=== PATIENT | female | born 1985 | race Caucasian/White ===

== ENCOUNTER → 2016-05-09 | Outpatient (REF) | payer BC | LOC: M SMT 13:11 | PROVIDERS: ATTEND Specialist | DX: M62.89 Other specified disorders of muscle (principal) ==

== ENCOUNTER → 2016-05-13 | Outpatient (REF) | payer BC | LOC: M SMT 11:05 | PROVIDERS: ATTEND Specialist | DX: R32 Unspecified urinary incontinence (principal) ==

== ENCOUNTER → 2016-05-29 | Outpatient (REF) | payer BC | LOC: M LAB REF 14:49 | PROVIDERS: ATTEND Family Medicine | DX: K52.9 Noninfective gastroenteritis and colitis, unspecified (principal) ==

== ENCOUNTER 2016-06-07 16:31 | Emergency (ER) | payer BC ==
[2016-06-07] MEDS ORDERED: diphenhydrAMINE INJ 50MG/ML VIAL (J1200) As Ordered ONE (17:24)
[2016-06-07] MEDS ORDERED: ONDANSETRON 4MG/2ML VIAL (J2405) As Ordered ONE (17:25)
[2016-06-07] MEDS ORDERED: KETOROLAC 30 MG/ML VIAL (J1885) As Ordered ONE (17:25)
[2016-06-07 17:41] LABS: BASO % 0.3 % (0.0-1.0); EOS # 0.1 K/mm3 (0.0-0.50); EOS % 1.1 % (0.0-3.0); LARGE UNSTAINED CELL # 0.1 K/mm3 (0.0-0.4); LARGE UNSTAINED CELL % 1.5 % (0.0-4.0); LYMPH # 2.7 K/mm3 (1.5-6.5); LYMPH % 27.4 % (24.0-44.0); MEAN CORPUSCULAR VOLUME 84.8 fl (80.0-96.0); MONO # 0.7 K/mm3 (0.0-0.8); NEUTROPHILS % 62.7 % (36.0-66.0); PLATELET COUNT, AUTOMATED 300 k/mm3 (150-450); RED CELL DISTRIBUTION WIDTH 13.2 % (11.5-14.5); WHITE BLOOD COUNT 9.5 K/mm3 (4.0-10.0)
--- NOTE | 2016-06-07 17:51 | REP ---
Clinical: Epigastric and abdominal pain. Technique: Upright view of the chest with supine and upright views of the abdomen and pelvis. Findings: Frontal upright view of the chest demonstrates no acute cardiopulmonary process or free air below the diaphragm to suspect pneumoperitoneum. Supine and upright views of the abdomen and pelvis demonstrate nonspecific bowel gas pattern without obstruction or perforation. No organomegaly. No abnormal calcifications. Skeletal structures normal for age. Impression: Nonspecific bowel gas pattern. Signed by Davie Gutiérrez MD 06/07/2016 05:42 P
[2016-06-07 17:58] LABS: ALBUMIN 3.8 GM/DL (3.2-5.2); ALBUMIN/GLOBULIN RATIO 1.12 (1.00-1.93); ALKALINE PHOSPHATASE 91 U/L (45-117); ALT/SGPT 17 U/L (12-78); AMYLASE 64 U/L (25-115); ANION GAP 8 MEQ/L (8-16); AST/SGOT 13 U/L (15-37); BILIRUBIN,DIRECT < 0.1 MG/DL (0.0-0.2); BILIRUBIN,TOTAL 0.2 MG/DL (0.2-1.0); BLOOD UREA NITROGEN 12 MG/DL (7-18); CALCIUM LEVEL 9.4 MG/DL (8.5-10.1); CARBON DIOXIDE LEVEL 29 MEQ/L (21-32); CHLORIDE LEVEL 105 MEQ/L (98-107); CREATININE FOR GFR 0.78 MG/DL (0.55-1.02); GLOMERULAR FILTRATION RATE > 60.0 (>60); GLUCOSE, FASTING 102 MG/DL (70-105); SODIUM LEVEL 142 MEQ/L (136-145); TOTAL PROTEIN 7.2 GM/DL (6.4-8.2)
--- NOTE | 2016-06-07 18:34 | REP ---
Clinical: Renal colic. Findings: Lung bases are clear. Visualized heart and pericardium normal. Liver, spleen, pancreas, gallbladder, bilateral adrenal glands and kidneys are normal for noncontrast examination. There is no perinephric stranding, hydroureteronephrosis, intrarenal or obstructing ureteral calculi. The enteric system is without obstruction or acute inflammatory process and a normal terminal ileum and appendix are identified in the right lower quadrant. Mild fecal stasis is suggested which may be related to patient's symptoms. Pelvis demonstrates collapsed bladder and normal age-appropriate uterus/adnexa. No ascites. No free air. No adenopathy. Musculoskeletal structures are intact. Impression: 1. Mild fecal stasis possibly related to patient's symptoms. 2. Normal urinary tract system. 3. Normal right lower quadrant including terminal ileum and appendix. 4. No free fluid. Signed by Davie Gutiérrez MD 06/07/2016 06:24 P
--- NOTE | 2016-06-07 19:40 | EDDOCDS ---
Physician Documentation [facility] Name: Judi Marx Age: 30 yrs Sex: Female : 1985 Arrival Date: 06/07/2016 Time: 16:31 Bed I3 / M3 Private MD: Teodoro Hernandez Disposition: 06/07/16 19:21 Discharged to Home/Self Care. Impression: Abdominal and pelvic pain, Irritable bowel syndrome. - Condition is Stable. - Discharge Instructions: Abdominal Pain, Adult. - Prescriptions for Zofran 4 mg Oral Tablet - take 1 tablet by ORAL route 4 times per day As needed; 10 tablet. ketorolac 10 mg Oral Tablet - take 1 tablet by ORAL route 3 times per day As needed MDD- 30mg. Up to 5 days total use.; 15 tablet. - Medication Reconciliation, Local Pharmacy Hours form. - Follow up: Teodoro Hernandez; When: 2 - 3 days; Reason: Recheck today's complaints, Continuance of care. Follow up: Cali Ervin; When: Call to arrange an appointment; Reason: Further diagnostic work-up, Continuance of care. - Problem is an acute exacerbation. - Symptoms are unchanged. Historical: - Allergies: Dilaudid; Morphine; Vicodin; - Home Meds: 1. Iron CR Oral 2 tab daily 2. Tylenol Oral 1000 mg (Last dose: 06/07/2016 09:00) 3. Probiotic oral oral as needed - PMHx: Asthma; - PSHx: right arm fracture repair; - Social history: Smoking status: Patient states was never smoker of tobacco. No barriers to communication noted, The patient speaks fluent Lao, Speaks appropriately for age. - Family history: Not pertinent. - : The pt / caregiver states he / she is not on anticoagulants. Home medication list is obtained from the patient. - Exposure Risk Screening:: None identified. CLEAT THROWER: 06/07 16:47 LMP 06/07/2016 ld5 Vital Signs: 16:33 BP 117 / 78; Pulse 98; Resp 18 S; Temp 97.0(O); Pulse Ox 99% on R/A; Weight 81.65 kg / gr2 180.01 lbs (R); Height 5 ft. 6 in. (167.64 cm) (R); Pain 7/10; 19:29 BP 103 / 53; Pulse 62; Resp 18; Temp 97.2(O); Pulse Ox 100% on R/A; Pain 3/10; kb5 16:33 Body Mass Index 29.05 (81.65 kg, 167.64 cm) gr2 16:33 HAJUQFHQH IO PQPKQAK gr2 MDM: 16:59 NS 0.9% 1000 ml IV at bolus once ordered. ke 16:59 Ondansetron 4 mg IVP once ordered. ke 16:59 ketorolac 30 mg IVP once ordered. ke 16:59 IV Saline Lock ordered. ke 16:59 Undress patient appropriately for examination ordered. ke 16:59 diphenhydrAMINE 50 mg IVP once ordered. ke 17:00 Amylase Ordered. EDMS 17:01 Basic Metabolic Profile Ordered. EDMS 17:01 CBC with Diff Ordered. EDMS 17:01 Lipase Ordered. EDMS 17:01 Liver Profile Ordered. EDMS 17:01 UA Ordered. EDMS 17:01 Urine Culture Ordered. EDMS 17:01 Abdomen, Flat\E\Upright,PA Chest Ordered. EDMS 17:01 NOTHING BY MOUTH+DIET ordered. EDMS 18:03 CBC with Diff Reviewed. ke 18:03 Liver Profile Reviewed. ke 18:03 UA Reviewed. ke 18:03 Amylase Reviewed. ke 18:03 Basic Metabolic Profile Reviewed. ke 18:03 Lipase Reviewed. ke 18:04 CT ABD & PELVIS: No Contrast Ordered. EDMS 18:28 Financial registration complete. gjb 19:04 Abdomen, Flat\E\Upright,PA Chest Reviewed. ke 19:18 [facility] [place] Payment Agreement was scanned into [employer] and attached to record. gjb 19:19 CT ABD & PELVIS: No Contrast Reviewed. ke Administered Medications: 17:30 Drug: diphenhydrAMINE 50 mg [diphenhydramine 50 mg/mL injection solution (1 mL)] Route: jjr IVP; Site: left antecubital; 17:32 Drug: Ondansetron 4 mg [ondansetron HCl 2 mg/mL intravenous solution (2 mL)] Route: jjr IVP; Site: left antecubital; 19:35 Follow up: Response: Nausea is decreased ld5 17:33 Drug: ketorolac 30 mg [ketorolac 30 mg/mL (1 mL) injection solution (1 mL)] Route: IVP; jjr Site: left antecubital; 19:35 Follow up: Response: Pain is decreased ld5 19:03 Drug: NS 0.9% 1000 ml [sodium chloride 0.9 % intravenous solution] Route: IV; Rate: srm bolus; Site: left antecubital; 19:35 Follow up: IV Status: Completed infusion; IV Intake: 1000ml ld5 Signatures: Dispatcher [employer] EDOrville Rausch, Amy Celaya RN RN ld5 Kristen Douglas RN RN susan Cesia Kong Staci RN [facility] Sharifa Dumont RN jjr The chart was reviewed and I authenticate all verbal orders and agree with the evaluation and treatment provided.Attachments: 19:18 REPLACED BY [facility] Payment Agreement rachel MTDD
--- NOTE | 2016-06-07 19:40 | EDDOCDS ---
Nurse's Notes [facility] Name: Judi Marx Age: 30 yrs Sex: Female : 1985 Arrival Date: 06/07/2016 Time: 16:31 Bed I3 / M3 Private MD: Teodoro Hernandez Diagnosis: Abdominal and pelvic pain;Irritable bowel syndrome Presentation: 06/07 16:43 Presenting complaint: Patient states: Started with severe abdominal pain and ld5 nausea/vomiting around 1400. Tenderness to abdomen. Pt has had abdominal problems since delivery complications almost a year ago. Adult Sepsis Screening: The patient does not have new or worsening altered mentation. Patient's respiratory rate is less than 22. Systolic blood pressure is greater than 100. Patient has a qSOFA score of 0- Negative Sepsis Screen. Suicide/Homicide risk assessment- the patient denies having any suicidal and/or homicidal ideations and does not present with any other emotional, behavioral or mental health complaints. Status: Patient is not a customer service consultant or dependent. Transition of care: patient was not received from another setting of care. 16:43 Acuity: MARITZA Level 3 ld5 16:43 Method Of Arrival: Walkin/Carried/Asstd ld5 Triage Assessment: 16:47 General: Appears uncomfortable, Behavior is cooperative. Pain: Location: posterior ld5 aspect of left lateral abdomen, anterior aspect of left lateral abdomen, right lower quadrant and left lower quadrant Pain currently is 4 out of 10 on a pain scale. At worst was 8 out of 10 on a pain scale. HIV screening NA for this visit Offered previously. Neurological: Level of Consciousness is awake, alert. GI: Reports diarrhea, nausea, vomiting. BURLESQUE DANCER: 16:47 LMP 06/07/2016 ld5 Historical: - Allergies: Dilaudid; Morphine; Vicodin; - Home Meds: 1. Iron CR Oral 2 tab daily 2. Tylenol Oral 1000 mg (Last dose: 06/07/2016 09:00) 3. Probiotic oral oral as needed - PMHx: Asthma; - PSHx: right arm fracture repair; - Social history: Smoking status: Patient states was never smoker of tobacco. No barriers to communication noted, The patient speaks fluent Swedish, Speaks appropriately for age. - Family history: Not pertinent. - : The pt / caregiver states he / she is not on anticoagulants. Home medication list is obtained from the patient. - Exposure Risk Screening:: None identified. Screenin:33 Screening information is obtained from the patient. Fall risk: No risks identified. ld5 Assistance ADL's: requires no assistance with activities of daily living. Abuse/DV Screen: The patient / caregiver reports he/she is: not in a situation that causes fear, pain or injury. Nutritional screening: No deficits noted. Advance Directives: There is no active DNR order. home support is adequate. Assessment: 17:50 General: Appears uncomfortable, Behavior is appropriate for age, cooperative, pleasant, cjh placed in M3 after return from XR, first contact with patient. Pain: Location: abdomen Pain currently is 7 out of 10 on a pain scale. Neurological: Level of Consciousness is awake, alert, Oriented to person, place, time. Respiratory: Airway is patent Respiratory effort is even, unlabored, Respiratory pattern is regular, symmetrical, Breath sounds are clear bilaterally. GI: Abdomen is non- distended Bowel sounds present X 4 quads. Abd is soft and non tender X 4 quads. 18:30 General: ambulates to and from [place], refuses offer of wheelchair, tolerates well. [facility] 19:34 General: Appears in no apparent distress, Behavior is cooperative. Pain: Pain currently ld5 is 3 out of 10 on a pain scale. Neurological: Level of Consciousness is awake, obeys commands. Respiratory: Airway is patent Respiratory effort is even, unlabored. GI: Denies nausea. Derm: Skin is intact, Skin is dry. Vital Signs: 16:33 BP 117 / 78; Pulse 98; Resp 18 S; Temp 97.0(O); Pulse Ox 99% on R/A; Weight 81.65 kg gr2 (R); Height 5 ft. 6 in. (167.64 cm) (R); Pain 7/10; 19:29 BP 103 / 53; Pulse 62; Resp 18; Temp 97.2(O); Pulse Ox 100% on R/A; Pain 3/10; kb5 16:33 Body Mass Index 29.05 (81.65 kg, 167.64 cm) gr2 16:33 HAJUQFHQH IO PQPKQAK gr2 Vitals: 16:33 Log In Time: June 07, 2016 at 16:33. gr2 ED Course: 16:32 Patient visited by Jr Dumont. gr2 16:32 Teodoro Hernandez is Private Physician. gr2 16:32 Patient moved to Waiting gr2 16:35 Patient visited by Jr Dumont. gr2 16:36 Patient moved to Pre RCE gr2 16:46 Triage Initiated ld5 16:48 Patient visited by Amy Hanson,PATRICIA. ld5 16:51 Patient moved to Triage 3 ld5 16:52 Orville Chakraborty FNP is [facility]. ke 16:52 Patient visited by Orville Chakraborty FNP. ke 16:52 Patient visited by Orville Chakraborty FNP. ke 17:21 Urine Culture Sent. jjr 17:21 UA Sent. jjr 17:21 Amylase Sent. jjr 17:21 Basic Metabolic Profile Sent. jjr 17:21 CBC with Diff Sent. jjr 17:21 Lipase Sent. jjr 17:21 Liver Profile Sent. jjr 17:27 Patient visited by Orville Chakraborty FNP. ke 17:32 Patient moved to I3 / M3 jjr 17:57 Patient visited by Orville Chakraborty FNP. ke 18:10 Abdomen, Flat\E\Upright,PA Chest Returned. EDMS 18:29 Patient visited by Orville Chakraborty FNP. ke 19:04 Patient visited by Orville Chakraborty FNP. ke 19:08 CT ABD & PELVIS: No Contrast Returned. EDMS 19:18 [facility] Agreement was scanned into [employer] and attached to record. gjb 19:21 Teodoro Hernandez is Referral Physician. ke 19:21 Cali Ervin is Referral Physician. ke 19:30 Patient visited by Robbie Funez PCA. kb5 19:32 Inserted saline lock: 20 gauge in left antecubital area by Adrian Dumont RN. ld5 19:33 The patient / caregiver is instructed regarding the plan of care and ED course. Patient ld5 has correct armband on for positive identification. 19:33 Discontinued lock intact, bleeding controlled, pressure dressing applied, No ld5 redness/swelling at site. No procedures done that require assistance. 19:35 Patient visited by Amy Hanson,PATRICIA. ld5 Administered Medications: 17:30 Drug: diphenhydrAMINE 50 mg [diphenhydramine 50 mg/mL injection solution (1 mL)] Route: jjr IVP; Site: left antecubital; 17:32 Drug: Ondansetron 4 mg [ondansetron HCl 2 mg/mL intravenous solution (2 mL)] Route: jjr IVP; Site: left antecubital; 19:35 Follow up: Response: Nausea is decreased ld5 17:33 Drug: ketorolac 30 mg [ketorolac 30 mg/mL (1 mL) injection solution (1 mL)] Route: IVP; jjr Site: left antecubital; 19:35 Follow up: Response: Pain is decreased ld5 19:03 Drug: NS 0.9% 1000 ml [sodium chloride 0.9 % intravenous solution] Route: IV; Rate: srm bolus; Site: left antecubital; 19:35 Follow up: IV Status: Completed infusion; IV Intake: 1000ml ld5 Intake: 19:35 IV: 1000.00ml; Total: 1000.00ml. ld5 Order Results: Lab Order: Amylase; SPEC'M 06/07/16 17:20 Test: AMYLASE; Value: 64; Range: 25-115; Units: U/L; Status: F Lab Order: Basic Metabolic Profile; SPEC'M 06/07/16 17:20 Test: GLUCOSE, FASTING; Value: 102; Range: 70-105; Units: MG/DL; Status: F Test: BLOOD UREA NITROGEN; Value: 12; Range: 7-18; Units: MG/DL; Status: F Test: CREATININE FOR GFR; Value: 0.78; Range: 0.55-1.02; Units: MG/DL; Status: F Test: GLOMERULAR FILTRATION RATE; Value: > 60.0; Range: >60; Status: F Test: SODIUM LEVEL; Value: 142; Range: 136-145; Units: MEQ/L; Status: F Test: POTASSIUM SERUM; Value: 4.0; Range: 3.5-5.1; Units: MEQ/L; Status: F Test: CHLORIDE LEVEL; Value: 105; Range: 98-107; Units: MEQ/L; Status: F Test: CARBON DIOXIDE LEVEL; Value: 29; Range: 21-32; Units: MEQ/L; Status: F Test: ANION GAP; Value: 8; Range: 8-16; Units: MEQ/L; Status: F Test: CALCIUM LEVEL; Value: 9.4; Range: 8.5-10.1; Units: MG/DL; Status: F Test Note: ; Units are mL/min/1.73 m2 Chronic Kidney Disease Staging per NKF: Stage I & II GFR >=60 Normal to Mildly Decreased Stage III GFR 30-59 Moderately Decreased Stage IV GFR 15-29 Severely Decreased Stage V GFR <15 Very Little GFR Left ESRD GFR <15 on BATT MACHINE OPERATOR Lab Order: CBC with Diff; SPEC'M 06/07/16 17:19 Test: WHITE BLOOD COUNT; Value: 9.5; Range: 4.0-10.0; Units: K/mm3; Status: F Test: RED BLOOD COUNT; Value: 4.79; Range: 4.00-5.40; Units: M/mm3; Status: F Test: HEMOGLOBIN; Value: 13.4; Range: 12.0-16.0; Units: g/dl; Status: F Test: HEMATOCRIT; Value: 40.7; Range: 36.0-47.0; Units: %; Status: F Test: MEAN CORPUSCULAR VOLUME; Value: 84.8; Range: 80.0-96.0; Units: fl; Status: F Test: MEAN CORPUSCULAR HEMOGLOBIN; Value: 28.0; Range: 27.0-33.0; Units: pg; Status: F Test: MEAN CORPUSCULAR HGB CONC; Value: 33.0; Range: 32.0-36.5; Units: g/dl; Status: F Test: RED CELL DISTRIBUTION WIDTH; Value: 13.2; Range: 11.5-14.5; Units: %; Status: F Test: PLATELET COUNT, AUTOMATED; Value: 300; Range: 150-450; Units: k/mm3; Status: F Test: NEUTROPHILS %; Value: 62.7; Range: 36.0-66.0; Units: %; Status: F Test: LYMPH %; Value: 27.4; Range: 24.0-44.0; Units: %; Status: F Test: MONO %; Value: 7.0; Range: 0.0-5.0; Abnormal: Above high normal; Units: %; Status: F Test: EOS %; Value: 1.1; Range: 0.0-3.0; Units: %; Status: F Test: BASO %; Value: 0.3; Range: 0.0-1.0; Units: %; Status: F Test: LARGE UNSTAINED CELL %; Value: 1.5; Range: 0.0-4.0; Units: %; Status: F Test: NEUTROPHILS #; Value: 6.0; Range: 1.8-7.7; Units: K/mm3; Status: F Test: LYMPH #; Value: 2.7; Range: 1.5-6.5; Units: K/mm3; Status: F Test: MONO #; Value: 0.7; Range: 0.0-0.8; Units: K/mm3; Status: F Test: EOS #; Value: 0.1; Range: 0.0-0.50; Units: K/mm3; Status: F Test: BASO #; Value: 0.0; Range: 0.0-0.2; Units: K/mm3; Status: F Test: LARGE UNSTAINED CELL #; Value: 0.1; Range: 0.0-0.4; Units: K/mm3; Status: F Lab Order: Lipase; SPEC'M 06/07/16 17:20 Test: LIPASE; Value: 366; Range: 73-393; Units: U/L; Status: F Lab Order: Liver Profile; SPEC'M 06/07/16 17:20 Test: AST/SGOT; Value: 13; Range: 15-37; Abnormal: Below low normal; Units: U/L; Status: F Test: ALT/SGPT; Value: 17; Range: 12-78; Units: U/L; Status: F Test: ALKALINE PHOSPHATASE; Value: 91; Range: 45-117; Units: U/L; Status: F Test: BILIRUBIN,TOTAL; Value: 0.2; Range: 0.2-1.0; Units: MG/DL; Status: F Test: BILIRUBIN,DIRECT; Value: < 0.1; Range: 0.0-0.2; Units: MG/DL; Status: F Test: TOTAL PROTEIN; Value: 7.2; Range: 6.4-8.2; Units: GM/DL; Status: F Test: ALBUMIN; Value: 3.8; Range: 3.2-5.2; Units: GM/DL; Status: F Test: ALBUMIN/GLOBULIN RATIO; Value: 1.12; Range: 1.00-1.93; Status: F Lab Order: UA; SPEC'M 06/07/16 17:12 Test: APPEARANCE, URINE; Value: CLEAR; Range: CLEAR; Status: F Test: COLOR, URINE; Value: YELLOW; Range: YELLOW; Status: F Test: PH,URINE; Value: 5.0; Range: 5.0-9.0; Units: UNITS; Status: F Test: SPECIFIC GRAVITY URINE AUTO; Value: 1.034; Range: 1.002-1.035; Status: F Test: PROTEIN, URINE AUTO; Value: NEGATIVE; Range: NEGATIVE; Units: mg/dL; Status: F Test: GLUCOSE, URINE (UA) AUTO; Value: NEGATIVE; Range: NEGATIVE; Units: mg/dL; Status: F Test: KETONE, URINE AUTO; Value: TRACE; Range: NEGATIVE; Abnormal: Above high normal; Units: mg/dL; Status: F Test: UROBILINOGEN, URINE AUTO; Value: 0.2; Range: 0.0-2.0; Units: mg/dL; Status: F Test: BILIRUBIN, URINE AUTO; Value: NEGATIVE; Range: NEGATIVE; Status: F Test: NITRITE, URINE AUTO; Value: NEGATIVE; Range: NEGATIVE; Status: F Test: LEUKOCYTE ESTERASE, URINE AUTO; Value: NEGATIVE; Range: NEGATIVE; Status: F Test: BLOOD, URINE BLOOD; Value: 3+; Range: NEGATIVE; Abnormal: Above high normal; Status: F Test: WBC, URINE AUTO; Value: 1; Range: 0-3; Units: /HPF; Status: F Test: RBC, URINE AUTO; Value: TNTC; Range: 0-3; Abnormal: Above high normal; Units: /HPF; Status: F Test: BACTERIA, URINE AUTO; Value: NEGATIVE; Range: NEGATIVE; Status: F Test: SQUAMOUS EPITHELIAL CELL UR AU; Value: 0; Range: 0-6; Units: /HPF; Status: F Test: MUCUS, URINE; Value: SMALL; Range: NEGATIVE; Status: F Test: HYALINE CAST, URINE AUTO; Value: 0; Range: 0-1; Units: /LPF; Status: F Test: AMORPHOUS SEDIMENT; Value: SMALL; Range: NEGATIVE; Abnormal: Above high normal; Status: F Radiology Order: Abdomen, Flat\E\Upright,PA Chest Test: Abdomen, Flat\E\Upright,PA Chest REASON FOR EXAMINATION: Abdomen Pain; Clinical: Epigastric and abdominal pain.; ; Technique: Upright view of the chest with supine and upright views of the; abdomen and pelvis.; ; Findings: Frontal upright view of the chest demonstrates no acute; cardiopulmonary process or free air below the diaphragm to suspect; pneumoperitoneum. Supine and upright views of the abdomen and pelvis demonstrate; nonspecific bowel gas pattern without obstruction or perforation. No; organomegaly. No abnormal calcifications. Skeletal structures normal for age.; ; Impression:; Nonspecific bowel gas pattern.; ; ; Signed by; Davie Gutiérrez MD 06/07/2016 05:42 P; Radiology Order: CT ABD & PELVIS: No Contrast Test: CT ABD & PELVIS: No Contrast REASON FOR EXAMINATION: Renal colic; Clinical: Renal colic.; ; Findings: Lung bases are clear. Visualized heart and pericardium normal.; ; Liver, spleen, pancreas, gallbladder, bilateral adrenal glands and kidneys are; normal for noncontrast examination. There is no perinephric stranding,; hydroureteronephrosis, intrarenal or obstructing ureteral calculi. The enteric; system is without obstruction or acute inflammatory process and a normal terminal; ileum and appendix are identified in the right lower quadrant. Mild fecal stasis; is suggested which may be related to patient's symptoms. Pelvis demonstrates; collapsed bladder and normal age-appropriate uterus/adnexa. No ascites. No free; air. No adenopathy. Musculoskeletal structures are intact.; ; Impression:; 1. Mild fecal stasis possibly related to patient's symptoms.; 2. Normal urinary tract system.; 3. Normal right lower quadrant including terminal ileum and appendix.; 4. No free fluid.; ; ; Signed by; Davie Gutiérrez MD 06/07/2016 06:24 P; Outcome: 19:21 Discharge ordered by Provider. ke 19:34 Discharge Assessment: Patient awake, alert and oriented x 3. No cognitive and/or ld5 functional deficits noted. Patient verbalized understanding of disposition instructions. patient administered narcotics - no. The following High Risk Discharge criteria are identified: None. Discharged to home ambulatory. Condition: stable. Discharge instructions given to patient, Instructed on discharge instructions, follow up and referral plans. medication usage, Demonstrated understanding of instructions, medications, Pt was receptive of discharge instructions/ teaching. Prescriptions given X 2. CT Study completed. Property :Personal belongings accompany Pt. 19:39 Patient left the ED. [facility] Signatures: Dispatcher [employer] EDMS Rupali Rajan, RN RN Orville Erazo, PROMOTIONS MANAGER PROMOTIONS MANAGER Robbie Sims, NEWS AGENT NEWS AGENT kb5 Sharifa Dumont RN RN jjr Dickerson, LauraRN RN ld5 Kristen DouglasRN RN [facility] Jr Dumont 2 Cesia Kong Corrections: (The following items were deleted from the chart) 19:39 17:50 Pain: Location: abdomen Pain currently is 9 out of 10 on a pain scale. [facility] AMARIS
--- NOTE | 2016-06-09 20:40 | EDDOCDS ---
Nurse's Notes [facility] Name: Judi Marx Age: 30 yrs Sex: Female : 1985 Arrival Date: 06/07/2016 Time: 16:31 Bed I3 / M3 Private MD: Teodoro Hernandez Diagnosis: Abdominal and pelvic pain;Irritable bowel syndrome Presentation: 06/07 16:43 Presenting complaint: Patient states: Started with severe abdominal pain and ld5 nausea/vomiting around 1400. Tenderness to abdomen. Pt has had abdominal problems since delivery complications almost a year ago. Adult Sepsis Screening: The patient does not have new or worsening altered mentation. Patient's respiratory rate is less than 22. Systolic blood pressure is greater than 100. Patient has a qSOFA score of 0- Negative Sepsis Screen. Suicide/Homicide risk assessment- the patient denies having any suicidal and/or homicidal ideations and does not present with any other emotional, behavioral or mental health complaints. Status: Patient is not a banking services officer or dependent. Transition of care: patient was not received from another setting of care. 16:43 Acuity: MARITZA Level 3 ld5 16:43 Method Of Arrival: Walkin/Carried/Asstd ld5 Triage Assessment: 16:47 General: Appears uncomfortable, Behavior is cooperative. Pain: Location: posterior ld5 aspect of left lateral abdomen, anterior aspect of left lateral abdomen, right lower quadrant and left lower quadrant Pain currently is 4 out of 10 on a pain scale. At worst was 8 out of 10 on a pain scale. HIV screening NA for this visit Offered previously. Neurological: Level of Consciousness is awake, alert. GI: Reports diarrhea, nausea, vomiting. 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 Iron CR Oral 2 tab daily 2. Tylenol Oral 1000 mg (Last dose: 06/07/2016 09:00) 3. Probiotic oral oral as needed - PMHx: Asthma; - PSHx: right arm fracture repair; - Social history: Smoking status: Patient states was never smoker of tobacco. No barriers to communication noted, The patient speaks fluent Somali, Speaks appropriately for age. - Family history: Not pertinent. - : The pt / caregiver states he / she is not on anticoagulants. Home medication list is obtained from the patient. - Exposure Risk Screening:: None identified. Screenin:33 Screening information is obtained from the patient. Fall risk: No risks identified. ld5 Assistance ADL's: requires no assistance with activities of daily living. Abuse/DV Screen: The patient / caregiver reports he/she is: not in a situation that causes fear, pain or injury. Nutritional screening: No deficits noted. Advance Directives: There is no active DNR order. home support is adequate. Assessment: 17:50 General: Appears uncomfortable, Behavior is appropriate for age, cooperative, pleasant, cjh placed in M3 after return from XR, first contact with patient. Pain: Location: abdomen Pain currently is 7 out of 10 on a pain scale. Neurological: Level of Consciousness is awake, alert, Oriented to person, place, time. Respiratory: Airway is patent Respiratory effort is even, unlabored, Respiratory pattern is regular, symmetrical, Breath sounds are clear bilaterally. GI: Abdomen is non- distended Bowel sounds present X 4 quads. Abd is soft and non tender X 4 quads. 18:30 General: ambulates to and from [place], refuses offer of wheelchair, tolerates well. [facility] 19:34 General: Appears in no apparent distress, Behavior is cooperative. Pain: Pain currently ld5 is 3 out of 10 on a pain scale. Neurological: Level of Consciousness is awake, obeys commands. Respiratory: Airway is patent Respiratory effort is even, unlabored. GI: Denies nausea. Derm: Skin is intact, Skin is dry. Vital Signs: 16:33 BP 117 / 78; Pulse 98; Resp 18 S; Temp 97.0(O); Pulse Ox 99% on R/A; Weight 81.65 kg gr2 (R); Height 5 ft. 6 in. (167.64 cm) (R); Pain 7/10; 19:29 BP 103 / 53; Pulse 62; Resp 18; Temp 97.2(O); Pulse Ox 100% on R/A; Pain 3/10; kb5 16:33 Body Mass Index 29.05 (81.65 kg, 167.64 cm) gr2 16:33 HAJUQFHQH IO PQPKQAK gr2 Vitals: 16:33 Log In Time: June 07, 2016 at 16:33. gr2 ED Course: 16:32 Patient visited by Jr Dumont. gr2 16:32 Teodoro Hernandez is Private Physician. gr2 16:32 Patient moved to Waiting gr2 16:35 Patient visited by Jr Dumont. gr2 16:36 Patient moved to Pre RCE gr2 16:46 Triage Initiated ld5 16:48 Patient visited by Amy Hanson,PATRICIA. ld5 16:51 Patient moved to Triage 3 ld5 16:52 [facility] ke 16:52 Patient visited by Orville Chakraborty FNP. ke 16:52 Patient visited by Orville Chakraborty FNP. ke 17:21 Urine Culture Sent. jjr 17:21 UA Sent. jjr 17:21 Amylase Sent. jjr 17:21 Basic Metabolic Profile Sent. jjr 17:21 CBC with Diff Sent. jjr 17:21 Lipase Sent. jjr 17:21 Liver Profile Sent. jjr 17:27 Patient visited by Orville Chakraborty FNP. ke 17:32 Patient moved to I3 / M3 jjr 17:57 Patient visited by Orville Chakraborty FNP. ke 18:10 Abdomen, Flat\E\Upright,PA Chest Returned. EDMS 18:29 Patient visited by Orville Chakraborty FNP. ke 19:04 Patient visited by Orville Chakraborty FNP. ke 19:08 CT ABD & PELVIS: No Contrast Returned. EDMS 19:18 [facility] Payment Agreement was scanned into [employer] and attached to record. gjb 19:21 Teodoro Hernandez is Referral Physician. ke 19:21 Cali Ervin is Referral Physician. ke 19:30 Patient visited by Robbie Funez PCA. kb5 19:32 Inserted saline lock: 20 gauge in left antecubital area by Adrian Dumont RN. ld5 19:33 The patient / caregiver is instructed regarding the plan of care and ED course. Patient ld5 has correct armband on for positive identification. 19:33 Discontinued lock intact, bleeding controlled, pressure dressing applied, No ld5 redness/swelling at site. No procedures done that require assistance. 19:35 Patient visited by Amy Hanson,PATRICIA. ld5 06/08 09:53 T-Sheet-- Draft Copy was scanned into [employer] and attached to record. gb Administered Medications: 06/07 17:30 Drug: diphenhydrAMINE 50 mg [diphenhydramine 50 mg/mL injection solution (1 mL)] Route: jjr IVP; Site: left antecubital; 17:32 Drug: Ondansetron 4 mg [ondansetron HCl 2 mg/mL intravenous solution (2 mL)] Route: jjr IVP; Site: left antecubital; 19:35 Follow up: Response: Nausea is decreased ld5 17:33 Drug: ketorolac 30 mg [ketorolac 30 mg/mL (1 mL) injection solution (1 mL)] Route: IVP; jjr Site: left antecubital; 19:35 Follow up: Response: Pain is decreased ld5 19:40 Follow up: Response: No Adverse Reaction; Pain is decreased [facility] 19:03 Drug: NS 0.9% 1000 ml [sodium chloride 0.9 % intravenous solution] Route: IV; Rate: srm bolus; Site: left antecubital; 19:35 Follow up: IV Status: Completed infusion; IV Intake: 1000ml ld5 19:40 Follow up: IV Status: Completed infusion cj Intake: 19:35 IV: 1000.00ml; Total: 1000.00ml. ld5 Order Results: Lab Order: Amylase; SPEC'M 06/07/16 17:20 Test: AMYLASE; Value: 64; Range: 25-115; Units: U/L; Status: F Lab Order: Basic Metabolic Profile; SPEC'M 06/07/16 17:20 Test: GLUCOSE, FASTING; Value: 102; Range: 70-105; Units: MG/DL; Status: F Test: BLOOD UREA NITROGEN; Value: 12; Range: 7-18; Units: MG/DL; Status: F Test: CREATININE FOR GFR; Value: 0.78; Range: 0.55-1.02; Units: MG/DL; Status: F Test: GLOMERULAR FILTRATION RATE; Value: > 60.0; Range: >60; Status: F Test: SODIUM LEVEL; Value: 142; Range: 136-145; Units: MEQ/L; Status: F Test: POTASSIUM SERUM; Value: 4.0; Range: 3.5-5.1; Units: MEQ/L; Status: F Test: CHLORIDE LEVEL; Value: 105; Range: 98-107; Units: MEQ/L; Status: F Test: CARBON DIOXIDE LEVEL; Value: 29; Range: 21-32; Units: MEQ/L; Status: F Test: ANION GAP; Value: 8; Range: 8-16; Units: MEQ/L; Status: F Test: CALCIUM LEVEL; Value: 9.4; Range: 8.5-10.1; Units: MG/DL; Status: F Test Note: ; Units are mL/min/1.73 m2 Chronic Kidney Disease Staging per NKF: Stage I & II GFR >=60 Normal to Mildly Decreased Stage III GFR 30-59 Moderately Decreased Stage IV GFR 15-29 Severely Decreased Stage V GFR <15 Very Little GFR Left ESRD GFR <15 on FUR COAT SEWER Lab Order: CBC with Diff; SPEC'M 06/07/16 17:19 Test: WHITE BLOOD COUNT; Value: 9.5; Range: 4.0-10.0; Units: K/mm3; Status: F Test: RED BLOOD COUNT; Value: 4.79; Range: 4.00-5.40; Units: M/mm3; Status: F Test: HEMOGLOBIN; Value: 13.4; Range: 12.0-16.0; Units: g/dl; Status: F Test: HEMATOCRIT; Value: 40.7; Range: 36.0-47.0; Units: %; Status: F Test: MEAN CORPUSCULAR VOLUME; Value: 84.8; Range: 80.0-96.0; Units: fl; Status: F Test: MEAN CORPUSCULAR HEMOGLOBIN; Value: 28.0; Range: 27.0-33.0; Units: pg; Status: F Test: MEAN CORPUSCULAR HGB CONC; Value: 33.0; Range: 32.0-36.5; Units: g/dl; Status: F Test: RED CELL DISTRIBUTION WIDTH; Value: 13.2; Range: 11.5-14.5; Units: %; Status: F Test: PLATELET COUNT, AUTOMATED; Value: 300; Range: 150-450; Units: k/mm3; Status: F Test: NEUTROPHILS %; Value: 62.7; Range: 36.0-66.0; Units: %; Status: F Test: LYMPH %; Value: 27.4; Range: 24.0-44.0; Units: %; Status: F Test: MONO %; Value: 7.0; Range: 0.0-5.0; Abnormal: Above high normal; Units: %; Status: F Test: EOS %; Value: 1.1; Range: 0.0-3.0; Units: %; Status: F Test: BASO %; Value: 0.3; Range: 0.0-1.0; Units: %; Status: F Test: LARGE UNSTAINED CELL %; Value: 1.5; Range: 0.0-4.0; Units: %; Status: F Test: NEUTROPHILS #; Value: 6.0; Range: 1.8-7.7; Units: K/mm3; Status: F Test: LYMPH #; Value: 2.7; Range: 1.5-6.5; Units: K/mm3; Status: F Test: MONO #; Value: 0.7; Range: 0.0-0.8; Units: K/mm3; Status: F Test: EOS #; Value: 0.1; Range: 0.0-0.50; Units: K/mm3; Status: F Test: BASO #; Value: 0.0; Range: 0.0-0.2; Units: K/mm3; Status: F Test: LARGE UNSTAINED CELL #; Value: 0.1; Range: 0.0-0.4; Units: K/mm3; Status: F Lab Order: Lipase; SPEC' 06/07/16 17:20 Test: LIPASE; Value: 366; Range: 73-393; Units: U/L; Status: F Lab Order: Liver Profile; [facility]' 06/07/16 17:20 Test: AST/SGOT; Value: 13; Range: 15-37; Abnormal: Below low normal; Units: U/L; Status: F Test: ALT/SGPT; Value: 17; Range: 12-78; Units: U/L; Status: F Test: ALKALINE PHOSPHATASE; Value: 91; Range: 45-117; Units: U/L; Status: F Test: BILIRUBIN,TOTAL; Value: 0.2; Range: 0.2-1.0; Units: MG/DL; Status: F Test: BILIRUBIN,DIRECT; Value: < 0.1; Range: 0.0-0.2; Units: MG/DL; Status: F Test: TOTAL PROTEIN; Value: 7.2; Range: 6.4-8.2; Units: GM/DL; Status: F Test: ALBUMIN; Value: 3.8; Range: 3.2-5.2; Units: GM/DL; Status: F Test: ALBUMIN/GLOBULIN RATIO; Value: 1.12; Range: 1.00-1.93; Status: F Lab Order: UA; SPEC'M 06/07/16 17:12 Test: APPEARANCE, URINE; Value: CLEAR; Range: CLEAR; Status: F Test: COLOR, URINE; Value: YELLOW; Range: YELLOW; Status: F Test: PH,URINE; Value: 5.0; Range: 5.0-9.0; Units: UNITS; Status: F Test: SPECIFIC GRAVITY URINE AUTO; Value: 1.034; Range: 1.002-1.035; Status: F Test: PROTEIN, URINE AUTO; Value: NEGATIVE; Range: NEGATIVE; Units: mg/dL; Status: F Test: GLUCOSE, URINE (UA) AUTO; Value: NEGATIVE; Range: NEGATIVE; Units: mg/dL; Status: F Test: KETONE, URINE AUTO; Value: TRACE; Range: NEGATIVE; Abnormal: Above high normal; Units: mg/dL; Status: F Test: UROBILINOGEN, URINE AUTO; Value: 0.2; Range: 0.0-2.0; Units: mg/dL; Status: F Test: BILIRUBIN, URINE AUTO; Value: NEGATIVE; Range: NEGATIVE; Status: F Test: NITRITE, URINE AUTO; Value: NEGATIVE; Range: NEGATIVE; Status: F Test: LEUKOCYTE ESTERASE, URINE AUTO; Value: NEGATIVE; Range: NEGATIVE; Status: F Test: BLOOD, URINE BLOOD; Value: 3+; Range: NEGATIVE; Abnormal: Above high normal; Status: F Test: WBC, URINE AUTO; Value: 1; Range: 0-3; Units: /HPF; Status: F Test: RBC, URINE AUTO; Value: TNTC; Range: 0-3; Abnormal: Above high normal; Units: /HPF; Status: F Test: BACTERIA, URINE AUTO; Value: NEGATIVE; Range: NEGATIVE; Status: F Test: SQUAMOUS EPITHELIAL CELL UR AU; Value: 0; Range: 0-6; Units: /HPF; Status: F Test: MUCUS, URINE; Value: SMALL; Range: NEGATIVE; Status: F Test: HYALINE CAST, URINE AUTO; Value: 0; Range: 0-1; Units: /LPF; Status: F Test: AMORPHOUS SEDIMENT; Value: SMALL; Range: NEGATIVE; Abnormal: Above high normal; Status: F Lab Order: Urine Culture; SPEC'M 06/07/16 17:12 Test: URINE CULTURE; Value: <EXTERNAL COMMENT eCWMed> FULL REPORT IN LAB NOTES (eCW and Medent).; Status: F Test: URINE CULTURE; Value: URINE CULTURE RESULT NO GROWTH; Status: F Radiology Order: Abdomen, Flat\E\Upright,PA Chest Test: Abdomen, Flat\E\Upright,PA Chest REASON FOR EXAMINATION: Abdomen Pain; Clinical: Epigastric and abdominal pain.; ; Technique: Upright view of the chest with supine and upright views of the; abdomen and pelvis.; ; Findings: Frontal upright view of the chest demonstrates no acute; cardiopulmonary process or free air below the diaphragm to suspect; pneumoperitoneum. Supine and upright views of the abdomen and pelvis demonstrate; nonspecific bowel gas pattern without obstruction or perforation. No; organomegaly. No abnormal calcifications. Skeletal structures normal for age.; ; Impression:; Nonspecific bowel gas pattern.; ; ; Signed by; Davie Gutiérrez MD 06/07/2016 05:42 P; Radiology Order: CT ABD & PELVIS: No Contrast Test: CT ABD & PELVIS: No Contrast REASON FOR EXAMINATION: Renal colic; Clinical: Renal colic.; ; Findings: Lung bases are clear. Visualized heart and pericardium normal.; ; Liver, spleen, pancreas, gallbladder, bilateral adrenal glands and kidneys are; normal for noncontrast examination. There is no perinephric stranding,; hydroureteronephrosis, intrarenal or obstructing ureteral calculi. The enteric; system is without obstruction or acute inflammatory process and a normal terminal; ileum and appendix are identified in the right lower quadrant. Mild fecal stasis; is suggested which may be related to patient's symptoms. Pelvis demonstrates; collapsed bladder and normal age-appropriate uterus/adnexa. No ascites. No free; air. No adenopathy. Musculoskeletal structures are intact.; ; Impression:; 1. Mild fecal stasis possibly related to patient's symptoms.; 2. Normal urinary tract system.; 3. Normal right lower quadrant including terminal ileum and appendix.; 4. No free fluid.; ; ; Signed by; Davie Gutiérrez MD 06/07/2016 06:24 P; Outcome: 19:21 Discharge ordered by Provider. jean 19:34 Discharge Assessment: Patient awake, alert and oriented x 3. No cognitive and/or ld5 functional deficits noted. Patient verbalized understanding of disposition instructions. patient administered narcotics - no. The following High Risk Discharge criteria are identified: None. Discharged to home ambulatory. Condition: stable. Discharge instructions given to patient, Instructed on discharge instructions, follow up and referral plans. medication usage, Demonstrated understanding of instructions, medications, Pt was receptive of discharge instructions/ teaching. Prescriptions given X 2. CT Study completed. Property :Personal belongings accompany Pt. 19:39 Patient left the ED. [facility] Signatures: Dispatcher [employer] EDMS Rupali Rajan, RN RN srm Emery, Vandana, Reg Reg gb Orville Chakraborty, SLD TEACHER SLD TEACHER Robbie Sims, FINANCIAL OPERATIONS CONSULTANT FINANCIAL OPERATIONS CONSULTANT kb5 Sharifa Dumont, RN Amy Gonzales RN RN ld5 Kristen DouglasRN RN [facility] Jr Dumont gr2 Cesia Kong Corrections: (The following items were deleted from the chart) 19:39 17:50 Pain: Location: abdomen Pain currently is 9 out of 10 on a pain scale. [facility] Chart Complete MTDD
--- NOTE | 2016-06-09 20:40 | EDDOCDS ---
Physician Documentation [facility] Name: Judi Marx Age: 30 yrs Sex: Female : 1985 Arrival Date: 06/07/2016 Time: 16:31 Bed I3 / M3 Private MD: Teodoro Hernandez Disposition: 06/07/16 19:21 Discharged to Home/Self Care. Impression: Abdominal and pelvic pain, Irritable bowel syndrome. - Condition is Stable. - Discharge Instructions: Abdominal Pain, Adult. - Prescriptions for Zofran 4 mg Oral Tablet - take 1 tablet by ORAL route 4 times per day As needed; 10 tablet. ketorolac 10 mg Oral Tablet - take 1 tablet by ORAL route 3 times per day As needed MDD- 30mg. Up to 5 days total use.; 15 tablet. - Medication Reconciliation, Local Pharmacy Hours form. - Follow up: Teodoro Hernandez; When: 2 - 3 days; Reason: Recheck today's complaints, Continuance of care. Follow up: Cali Ervin; When: Call to arrange an appointment; Reason: Further diagnostic work-up, Continuance of care. - Problem is an acute exacerbation. - Symptoms are unchanged. Historical: - Allergies: Dilaudid; Morphine; Vicodin; - Home Meds: 1. Iron CR Oral 2 tab daily 2. Tylenol Oral 1000 mg (Last dose: 06/07/2016 09:00) 3. Probiotic oral oral as needed - PMHx: Asthma; - PSHx: right arm fracture repair; - Social history: Smoking status: Patient states was never smoker of tobacco. No barriers to communication noted, The patient speaks fluent Cook Islander, Speaks appropriately for age. - Family history: Not pertinent. - : The pt / caregiver states he / she is not on anticoagulants. Home medication list is obtained from the patient. - Exposure Risk Screening:: None identified. RECRUITER: 06/07 16:47 LMP 06/07/2016 ld5 Vital Signs: 16:33 BP 117 / 78; Pulse 98; Resp 18 S; Temp 97.0(O); Pulse Ox 99% on R/A; Weight 81.65 kg / gr2 180.01 lbs (R); Height 5 ft. 6 in. (167.64 cm) (R); Pain 7/10; 19:29 BP 103 / 53; Pulse 62; Resp 18; Temp 97.2(O); Pulse Ox 100% on R/A; Pain 3/10; kb5 16:33 Body Mass Index 29.05 (81.65 kg, 167.64 cm) gr2 16:33 HAJUQFHQH IO PQPKQAK gr2 MDM: 16:59 NS 0.9% 1000 ml IV at bolus once ordered. ke 16:59 Ondansetron 4 mg IVP once ordered. ke 16:59 ketorolac 30 mg IVP once ordered. ke 16:59 IV Saline Lock ordered. ke 16:59 Undress patient appropriately for examination ordered. ke 16:59 diphenhydrAMINE 50 mg IVP once ordered. ke 17:00 Amylase Ordered. EDMS 17:01 Basic Metabolic Profile Ordered. EDMS 17:01 CBC with Diff Ordered. EDMS 17:01 Lipase Ordered. EDMS 17:01 Liver Profile Ordered. EDMS 17:01 UA Ordered. EDMS 17:01 Urine Culture Ordered. EDMS 17:01 Abdomen, Flat\E\Upright,PA Chest Ordered. EDMS 17:01 NOTHING BY MOUTH+DIET ordered. EDMS 18:03 CBC with Diff Reviewed. ke 18:03 Liver Profile Reviewed. ke 18:03 UA Reviewed. ke 18:03 Amylase Reviewed. ke 18:03 Basic Metabolic Profile Reviewed. ke 18:03 Lipase Reviewed. ke 18:04 CT ABD & PELVIS: No Contrast Ordered. EDMS 18:28 Financial registration complete. gjb 19:04 Abdomen, Flat\E\Upright,PA Chest Reviewed. ke 19:18 [facility] Payment Agreement was scanned into [employer] and attached to record. gjb 19:19 CT ABD & PELVIS: No Contrast Reviewed. jean 06/08 09:53 T-Sheet-- Draft Copy was scanned into [employer] and attached to record. gb Administered Medications: 06/07 17:30 Drug: diphenhydrAMINE 50 mg [diphenhydramine 50 mg/mL injection solution (1 mL)] Route: jjr IVP; Site: left antecubital; 17:32 Drug: Ondansetron 4 mg [ondansetron HCl 2 mg/mL intravenous solution (2 mL)] Route: jjr IVP; Site: left antecubital; 19:35 Follow up: Response: Nausea is decreased ld5 17:33 Drug: ketorolac 30 mg [ketorolac 30 mg/mL (1 mL) injection solution (1 mL)] Route: IVP; jjr Site: left antecubital; 19:35 Follow up: Response: Pain is decreased ld5 19:40 Follow up: Response: No Adverse Reaction; Pain is decreased [facility] 19:03 Drug: NS 0.9% 1000 ml [sodium chloride 0.9 % intravenous solution] Route: IV; Rate: srm bolus; Site: left antecubital; 19:35 Follow up: IV Status: Completed infusion; IV Intake: 1000ml ld5 19:40 Follow up: IV Status: Completed infusion [facility] Signatures: Dispatcher [employer] EDMS Vandana Land, Orville Howe, MIXED CROP AND LIVESTOCK FARMER Amy FayRN RN ld5 Kristen Douglas RN RN [facility] Cesia Kong Rupali Rajan RN [facility] Sharifa Dumont RN jjr The chart was reviewed and I authenticate all verbal orders and agree with the evaluation and treatment provided.Attachments: :18 [facility] Payment Agreement gjb 06/08 09:53 T-Sheet-- Draft Copy Chart Complete MTDD
--- NOTE | 2016-06-09 20:40 | EDDOCDS ---
Physician Documentation [facility] Name: Judi Marx Age: 30 yrs Sex: Female : 1985 Arrival Date: 06/07/2016 Time: 16:31 Bed I3 / M3 Private MD: Teodoro Hernandez Disposition: 06/07/16 19:21 Discharged to Home/Self Care. Impression: Abdominal and pelvic pain, Irritable bowel syndrome. - Condition is Stable. - Discharge Instructions: Abdominal Pain, Adult. - Prescriptions for Zofran 4 mg Oral Tablet - take 1 tablet by ORAL route 4 times per day As needed; 10 tablet. ketorolac 10 mg Oral Tablet - take 1 tablet by ORAL route 3 times per day As needed MDD- 30mg. Up to 5 days total use.; 15 tablet. - Medication Reconciliation, Local Pharmacy Hours form. - Follow up: Teodoro Hernandez; When: 2 - 3 days; Reason: Recheck today's complaints, Continuance of care. Follow up: Cali Ervin; When: Call to arrange an appointment; Reason: Further diagnostic work-up, Continuance of care. - Problem is an acute exacerbation. - Symptoms are unchanged. Historical: - Allergies: Dilaudid; Morphine; Vicodin; - Home Meds: 1. Iron CR Oral 2 tab daily 2. Tylenol Oral 1000 mg (Last dose: 06/07/2016 09:00) 3. Probiotic oral oral as needed - PMHx: Asthma; - PSHx: right arm fracture repair; - Social history: Smoking status: Patient states was never smoker of tobacco. No barriers to communication noted, The patient speaks fluent Cameroonian, Speaks appropriately for age. - Family history: Not pertinent. - : The pt / caregiver states he / she is not on anticoagulants. Home medication list is obtained from the patient. - Exposure Risk Screening:: None identified. ORDER CHECKER PACKER PROCESSER: 06/07 16:47 LMP 06/07/2016 ld5 Vital Signs: 16:33 BP 117 / 78; Pulse 98; Resp 18 S; Temp 97.0(O); Pulse Ox 99% on R/A; Weight 81.65 kg / gr2 180.01 lbs (R); Height 5 ft. 6 in. (167.64 cm) (R); Pain 7/10; 19:29 BP 103 / 53; Pulse 62; Resp 18; Temp 97.2(O); Pulse Ox 100% on R/A; Pain 3/10; kb5 16:33 Body Mass Index 29.05 (81.65 kg, 167.64 cm) gr2 16:33 HAJUQFHQH IO PQPKQAK gr2 MDM: 16:59 NS 0.9% 1000 ml IV at bolus once ordered. ke 16:59 Ondansetron 4 mg IVP once ordered. ke 16:59 ketorolac 30 mg IVP once ordered. ke 16:59 IV Saline Lock ordered. ke 16:59 Undress patient appropriately for examination ordered. ke 16:59 diphenhydrAMINE 50 mg IVP once ordered. ke 17:00 Amylase Ordered. EDMS 17:01 Basic Metabolic Profile Ordered. EDMS 17:01 CBC with Diff Ordered. EDMS 17:01 Lipase Ordered. EDMS 17:01 Liver Profile Ordered. EDMS 17:01 UA Ordered. EDMS 17:01 Urine Culture Ordered. EDMS 17:01 Abdomen, Flat\E\Upright,PA Chest Ordered. EDMS 17:01 NOTHING BY MOUTH+DIET ordered. EDMS 18:03 CBC with Diff Reviewed. ke 18:03 Liver Profile Reviewed. ke 18:03 UA Reviewed. ke 18:03 Amylase Reviewed. ke 18:03 Basic Metabolic Profile Reviewed. ke 18:03 Lipase Reviewed. ke 18:04 CT ABD & PELVIS: No Contrast Ordered. EDMS 18:28 Financial registration complete. gjb 19:04 Abdomen, Flat\E\Upright,PA Chest Reviewed. ke 19:18 [facility] Payment Agreement was scanned into [employer] and attached to record. gjb 19:19 CT ABD & PELVIS: No Contrast Reviewed. jean 06/08 09:53 T-Sheet-- Draft Copy was scanned into [employer] and attached to record. gb Administered Medications: 06/07 17:30 Drug: diphenhydrAMINE 50 mg [diphenhydramine 50 mg/mL injection solution (1 mL)] Route: jjr IVP; Site: left antecubital; 17:32 Drug: Ondansetron 4 mg [ondansetron HCl 2 mg/mL intravenous solution (2 mL)] Route: jjr IVP; Site: left antecubital; 19:35 Follow up: Response: Nausea is decreased ld5 17:33 Drug: ketorolac 30 mg [ketorolac 30 mg/mL (1 mL) injection solution (1 mL)] Route: IVP; jjr Site: left antecubital; 19:35 Follow up: Response: Pain is decreased ld5 19:40 Follow up: Response: No Adverse Reaction; Pain is decreased [facility] 19:03 Drug: NS 0.9% 1000 ml [sodium chloride 0.9 % intravenous solution] Route: IV; Rate: srm bolus; Site: left antecubital; 19:35 Follow up: IV Status: Completed infusion; IV Intake: 1000ml ld5 19:40 Follow up: IV Status: Completed infusion [facility] Signatures: Dispatcher [employer] EDMS Vandana Land, Orville Howe, ENGAGEMENT MGR Amy FayRN RN ld5 Kristen Douglas RN RN [facility] Cesia Kong Rupali Rajan RN [facility] Sharifa Dumont RN jjr The chart was reviewed and I authenticate all verbal orders and agree with the evaluation and treatment provided.Attachments: :18 [facility] Payment Agreement gjb 06/08 09:53 T-Sheet-- Draft Copy Chart Complete MTDD
== END 2016-06-07 19:39 | disposition home or self-care (01) ==
LOC: M ED 16:31
DX: K58.9 Irritable bowel syndrome, unspecified (principal); J45.909 Unspecified asthma, uncomplicated; Z88.5 Allergy status to narcotic agent; Z88.1 Allergy status to other antibiotic agents
CPT/HCPCS: 74022; 74176; 80048; 80076; 81001; 82150; 83690; 85025; 87086; 96361; 96374; 96375; 99284; J1200; J1885; J2405

== ENCOUNTER → 2016-08-21 | Outpatient (REF) | payer BC | LOC: M SMT 14:55 | PROVIDERS: ATTEND Specialist | DX: N39.0 Urinary tract infection, site not specified (principal) ==

== ENCOUNTER → 2016-08-30 | Outpatient (CLI) | payer BC ==
[~2016-08-30] MED LIST: E-Z-GAS II EFFERVESCENT PACKET (SODIUM BICARB./CITRIC ACID/SIMETHICONE) As Ordered ONE; E-Z-HD 98% w/w 340GM SUSP BTL As Ordered ONE; E-Z-PAQUE 96% w/w SUSP 176GM BTL As Ordered ONE
--- NOTE | 2016-08-30 17:43 | REP ---
UPPER GI AIR CONTRAST AND SMALL BOWEL FOLLOW-THROUGH: The procedure was performed under the direct supervision of Dr. Norman. The images were reviewed with Dr. Norman. The cyber forensic specialist film shows no organomegaly or pathological masses. The intestinal gas pattern is nonspecific. Liquid barium and gas producing granules were given in the erect position as well as liquid barium in the prone oblique position in order to perform a double contrast upper GI examination. Additionally liquid barium was given at the end of the examination in order to perform a small bowel follow-through. The oral and pharyngeal stages of deglutition are unremarkable. Esophageal transport is prompt and efficient and there is no esophagitis, stricture, mucosal ring, or hiatal hernia. Gastroesophageal reflux is not demonstrated on this examination. The stomach whitley are normally outlined. The rugal folds are smooth and regular. There is no gastritis, neoplasm or ulcer disease. The duodenal whitley are normally outlined. The mucosal folds are smooth and regular. There is no duodenitis, pancreatitis, peptic ulcer disease, or neoplasm. The visualized portion of the proximal small bowel appears normal in course and caliber. The barium column was followed through the small bowel to the level of the terminal ileum. Small bowel transit time is approximately 1 hour. During fluoroscopy gentle palpation shows all loops are freely movable and pliable. There are no fixed or angulated loops. The small bowel mucosal pattern is normal in course and caliber. There is no transition to suggest a partial small bowel obstruction. Spot filming of terminal ileum shows it to be unremarkable. IMPRESSION: Essentially unremarkable double contrast upper GI and small bowel follow-through examination. 1 minutes and 52 seconds of fluoroscopy time was utilized for this procedure. Reviewed by MARIA ESTHER Grover 09/02/2016 10:55 AEdited and Signed by Niels Norman MD 09/02/2016 12:23 P
== END ==
LOC: M RAD 09:41
PROVIDERS: ATTEND Internal Medicine Gastroenterology
DX: K58.0 Irritable bowel syndrome with diarrhea (principal); D64.9 Anemia, unspecified

== ENCOUNTER → 2016-09-20 | Outpatient (CLI) | payer BC ==
[~2016-09-20] VITALS: Ht 154.9 cm; Wt 79.4 kg
[~2016-09-20] MED LIST changes: +CYCL10TA PO; -E-Z-GAS II EFFERVESCENT PACKET (SODIUM BICARB./CITRIC ACID/SIMETHICONE) As Ordered ONE; -E-Z-HD 98% w/w 340GM SUSP BTL As Ordered ONE; -E-Z-PAQUE 96% w/w SUSP 176GM BTL As Ordered ONE; +FERR325T PO; +IRON65TA PO; +KETO10TAB PO; +LIDOCAINE 2% INJ 100 MG/5 ML SDV (FOR ANES.) As Ordered ONE; +NS 1,000 ML IV ONE; +PHEN-223 PO; +PHENYLephrine HCL 500 MCG/5 ML (100MCG/ML) SYRINGE (J2370) As Ordered ONE; +PROPOFOL 200 MG/20 ML VIAL As Ordered ONE; +XULA1DIS TD; +ZOFR20TA PO; +ZOVI1TAB8 PO; +fentaNYL 100 MCG/2 ML INJECTION (J3010) As Ordered ONE
--- NOTE | 2016-09-20 11:43 | ROOR ---
Patient Name: Judi Maxr Procedure Date: 09/20/2016 11:30 AM Date of : 1985 Age: 30 Room: [facility] Gender: Female Note Status: Finalized Procedure: Upper GI endoscopy + Small bowel bx. Indications: Iron deficiency anemia, Diarrhea Providers: Mayito aJmeson MD Referring MD: JOSIE CHAVEZ MD Requesting Provider: Medicines: Monitored Anesthesia Care Complications: No immediate complications. Procedure: Pre-Anesthesia Assessment: - The heart rate, respiratory rate, oxygen saturations, blood pressure, adequacy of pulmonary ventilation, and response to care were monitored throughout the procedure. The Endoscope was introduced through the mouth, and advanced to the second part of duodenum. The upper GI endoscopy was accomplished without difficulty. The patient tolerated the procedure well. Findings: The Z-line was regular and was found 40 cm from the incisors. No other significant abnormalities were identified in a careful examination of the stomach. The exam of the duodenum was otherwise normal. Biopsies for histology were taken with a cold forceps in the first portion of the duodenum for evaluation of celiac disease. The exam was otherwise without abnormality. Impression: - Z-line regular, 40 cm from the incisors. - The examination was otherwise normal. - Biopsies were taken with a cold forceps for evaluation of celiac disease. - The examination was otherwise normal. Recommendation: - Patient has a contact number available for emergencies. The signs and symptoms of potential delayed complications were discussed with the patient. Return to normal activities tomorrow. Written discharge instructions were provided to the patient. - High fiber diet. - Discharge patient to home. - Continue present medications. - Await pathology results. - Telephone GI clinic for pathology results in 1 week. - Return to referring physician. - Check Portal Online for Path Results.([email or web address] - The findings and recommendations were discussed with the patient's family. Mayito Jameson MD Mayito Jameson MD 09/20/2016 11:43:43 AM This report has been signed electronically. Number of Addenda: 0 Note Initiated On: 09/20/2016 11:30 AM Estimated Blood Loss: Estimated blood loss: none.
--- NOTE | 2016-09-20 12:05 | ROOR ---
Patient Name: Judi Marx Procedure Date: 09/20/2016 11:31 AM Date of : 1985 Age: 30 Room: [facility] Gender: Female Note Status: Finalized Procedure: Total Colonoscopy to Cecum + ileoscopy + Bx Indications: Unexplained iron deficiency anemia, Change in bowel habits Providers: Mayito Jameson MD Referring MD: JOSIE CHAVEZ MD Requesting Provider: Medicines: Monitored Anesthesia Care Complications: No immediate complications. Procedure: Pre-Anesthesia Assessment: - The heart rate, respiratory rate, oxygen saturations, blood pressure, adequacy of pulmonary ventilation, and response to care were monitored throughout the procedure. The Colonoscope was introduced through the anus and advanced to the cecum, identified by appendiceal orifice and ileocecal valve. The colonoscopy was performed without difficulty. The patient tolerated the procedure well. The quality of the bowel preparation was excellent. Findings: The perianal and digital rectal examinations were normal. Non-bleeding internal hemorrhoids were found during retroflexion. The hemorrhoids were small and Grade I (internal hemorrhoids that do not prolapse). No other significant abnormalities were identified in a careful examination of the remainder of the colon. The exam was otherwise without abnormality on direct and retroflexion views. The terminal ileum appeared normal. Biopsies for histology were taken with a cold forceps from the ascending colon and transverse colon for evaluation of microscopic colitis. The exam was otherwise without abnormality. Impression: - Non-bleeding internal hemorrhoids. - The examination was otherwise normal on direct and retroflexion views. - The examined portion of the ileum was normal. - The examination was otherwise normal. - Biopsies were taken with a cold forceps from the ascending colon and transverse colon for evaluation of microscopic colitis. - The exam was otherwise normal to the cecum. Recommendation: - Patient has a contact number available for emergencies. The signs and symptoms of potential delayed complications were discussed with the patient. Return to normal activities tomorrow. Written discharge instructions were provided to the patient. - Discharge patient to home. - Continue present medications. - Await pathology results. - Telephone GI clinic for pathology results in 1 week. - Check Portal Online for Path Results.([email or web address] - Return to referring physician. - The findings and recommendations were discussed with the patient's family. Mayito Jameson MD Mayito Jameson MD 09/20/2016 12:05:22 PM This report has been signed electronically. Number of Addenda: 0 Note Initiated On: 09/20/2016 11:31 AM Estimated Blood Loss: Estimated blood loss: none.
[2016-09-20 12:20] VITALS: BP 104/60
== END ==
LOC: M OPP 10:07
PROVIDERS: ATTEND Internal Medicine Gastroenterology
DX: D50.9 Iron deficiency anemia, unspecified (principal); R19.4 Change in bowel habit; K64.0 First degree hemorrhoids; R19.7 Diarrhea, unspecified; R10.30 Lower abdominal pain, unspecified; R10.13 Epigastric pain; K58.9 Irritable bowel syndrome, unspecified; R11.0 Nausea; K46.9 Unspecified abdominal hernia without obstruction or gangrene; K62.5 Hemorrhage of anus and rectum; Z79.899 Other long term (current) drug therapy; Z88.5 Allergy status to narcotic agent
CPT/HCPCS: 43239; 45380; 88305; J2370; J3010

== ENCOUNTER 2016-10-12 13:22 | Emergency (ER) | payer BC ==
[~2016-10-12] VITALS: Ht 167.6 cm; Wt 83.4 kg
[~2016-10-12 13:22] MED LIST changes: +FERR1TAB8 PO; -FERR325T PO; -LIDOCAINE 2% INJ 100 MG/5 ML SDV (FOR ANES.) As Ordered ONE; -NS 1,000 ML IV ONE; -PHEN-223 PO; +PHEN30CA2 PO; -PHENYLephrine HCL 500 MCG/5 ML (100MCG/ML) SYRINGE (J2370) As Ordered ONE; -PROPOFOL 200 MG/20 ML VIAL As Ordered ONE; -fentaNYL 100 MCG/2 ML INJECTION (J3010) As Ordered ONE
[2016-10-12 14:33] LABS: MEAN CORPUSCULAR HEMOGLOBIN 28.1 pg (27.0-33.0); MEAN CORPUSCULAR HGB CONC 32.3 g/dl (32.0-36.5); MEAN CORPUSCULAR VOLUME 86.8 fl (80.0-96.0); WHITE BLOOD COUNT 9.9 K/mm3 (4.0-10.0)
[2016-10-12 14:39] LABS: ANION GAP 3 MEQ/L (8-16); BLOOD UREA NITROGEN 11 MG/DL (7-18); CARBON DIOXIDE LEVEL 32 MEQ/L (21-32); CHLORIDE LEVEL 103 MEQ/L (98-107); CREATININE FOR GFR 0.72 MG/DL (0.55-1.02); GLOMERULAR FILTRATION RATE > 60.0 (>60); GLUCOSE, FASTING 92 MG/DL (70-105); POTASSIUM SERUM 4.1 MEQ/L (3.5-5.1); SODIUM LEVEL 138 MEQ/L (136-145)
--- NOTE | 2016-10-12 16:38 | ECGEPIP ---
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
[2016-10-12] MEDS ORDERED: GASTROGRAFIN SOLUTION 30ML (Q9963) PO ONE ×2 (17:45→18:15)
[2016-10-12] MEDS ORDERED: ISOVUE-370 76% 100ML VIAL (Q9967) As Ordered ONE (19:02)
[2016-10-12] MEDS ORDERED: fentaNYL 100 MCG/2 ML INJECTION (J3010) IV ONE (19:15)
--- NOTE | 2016-10-12 19:40 | REPUSA ---
CT of the abdomen and pelvis with contrast Clinical statement: Pain. Postoperative. Technique: Multiple axial CT images were obtained from the base of the lungs through the floor of the pelvis utilizing 5 mm axial slices after administration of nonionic intravenous contrast. Coronal an d sagittal reconstructions were also obtained. No comparison is available. Findings: Chest: The visualized lung bases are clear. Abdomen: The liver, spleen, pancreas, kidneys, gallbladder, and adrenal glands are unremarkable. The aorta is within normal limits. There is no evidence of abdominal lymphadenopathy or ascites. Pelvis: The bowel is unremarkable, with no obstructive or inflammatory changes. The appendix is gilberto l. Moderate amount of stool fills the colon. The urinary bladder is within normal limits. The other p elvic structures appear grossly intact. There is no evidence of pelvic lymphadenopathy or ascites. Bones: There are no suspicious osseous abnormalities seen. Impression: No focal acute abnormality. Moderate constipation.
[2016-10-12] MEDS ORDERED: IBUPROFEN 800 MG TAB PO ONE (20:15)
[2016-10-12] MEDS ORDERED: MAGNESIUM CITRATE 300 ML BTL PO ONE (20:45)
[2016-10-12] MEDS ORDERED: DULC5TAB PO (20:46)
[2016-10-12 20:52] VITALS: BP 103/67
--- NOTE | 2016-10-13 07:16 | REP ---
ACUTE ABDOMINAL SERIES: 10/12/2016 COMPARISON: 06/07/2016. CLINICAL HISTORY: Postoperative pain. FINDINGS: PA CHEST: Lungs are well inflated and clear. Heart, mediastinal and hilar contours are normal. No basilar atelectasis or effusion. Airway intact. Bones unremarkable. No free air. FLAT UPRIGHT ABDOMEN: The gas pattern is nonspecific. There is stool in the right distal transverse and proximal left colon but not abnormally distended colon with significant constipation. Small bowel gas limited. There are a few air-fluid levels but not in dilated loops. Calcifications in the pelvis suggesting phleboliths. No abnormal calcifications over the course of the ureters or in the renal fossae. The bony pelvis, lumbar spine and hips intact. IMPRESSION: 1. Nonspecific gas pattern without obstruction, mass or free air. A few pelvic phleboliths are seen. No abnormal bony structures. 2. PA chest negative. Signed by Ryan Jenkins MD 10/13/2016 09:30 A
== END 2016-10-12 21:02 | disposition home or self-care (01) ==
LOC: M ED 15:14
DX: R55 Syncope and collapse (principal); K59.00 Constipation, unspecified; Z98.890 Other specified postprocedural states; Z79.899 Other long term (current) drug therapy; Z88.5 Allergy status to narcotic agent; Z91.048 Other nonmedicinal substance allergy status
CPT/HCPCS: 74022; 74177; 80048; 85027; 93005; 99285; Q9963; Q9967

== ENCOUNTER → 2017-03-06 | Outpatient (CLI) | payer BC ==
[~2017-03-06] MED LIST changes: +DULC5TAB PO
[2017-03-06 19:23] LABS: FOLATE 12.2 NG/ML; VITAMIN B12 LEVEL 240 PG/ML
[2017-03-11 00:07] LABS: VITAMIN E LEVEL 12.2 mg/L (5.3-16.8)
== END ==
LOC: M LAB 17:39
PROVIDERS: ATTEND Psychiatry & Neurology Neurology
DX: R53.83 Other fatigue (principal); G47.10 Hypersomnia, unspecified

== ENCOUNTER → 2017-03-10 | Outpatient (CLI) | payer BC ==
--- NOTE | 2017-03-11 09:17 | REP ---
MRI brain without contrast: History: History of vertigo . Comparison study: No comparison brain imaging. Technique: Axial and sagittal imaging planes are utilized for T1 and T2-weighted scans. Sequences include spin-echo, fast spin echo, FLAIR, and diffusion weighted sequences. MRI findings: No bony calvarial lesion is seen. Craniocervical junction and upper cervical cord are normal in appearance. There is no MR evidence of significant paranasal sinus disease. No intraorbital abnormality is seen. The lateral, third, and fourth ventricles are normal in size and position. Norman-white differentiation pattern is intact above and below the tentorium. There is no evidence of intracranial hemorrhage. No mass, infarction, extra-axial fluid collection or midline shift is seen. No abnormal white matter lesion is seen. Impression: Negative noncontrast brain MRI study. Signed by Mark Martinez MD 03/11/2017 09:08 A
== END ==
LOC: M RAD 14:20
PROVIDERS: ATTEND Family Medicine
DX: H81.313 Aural vertigo, bilateral (principal)

== ENCOUNTER 2017-05-05 19:05 | Outpatient (CLI) | payer BC ==
[2017-05-13 15:52] LABS: SUMMARY SEE SEPARATE REPORT
== END 2017-05-06 14:00 | disposition home or self-care (01) ==
LOC: M SLEEP 19:05
DX: G47.10 Hypersomnia, unspecified (principal); G47.419 Narcolepsy without cataplexy
CPT/HCPCS: 95810

== ENCOUNTER → 2017-09-07 | Outpatient (REF) | payer BC | LOC: M LAB REF 17:50 | DX: J02.9 Acute pharyngitis, unspecified (principal) | CPT/HCPCS: 87430 ==

== ENCOUNTER → 2017-10-15 | Outpatient (REF) | payer BC ==
[2017-10-15 21:34] LABS: APPEARANCE, URINE HAZY (CLEAR); BACTERIA, URINE AUTO NEGATIVE (NEGATIVE); BILIRUBIN, URINE AUTO NEGATIVE (NEGATIVE); BLOOD, URINE BLOOD NEGATIVE (NEGATIVE); COLOR, URINE YELLOW (YELLOW); GLUCOSE, URINE (UA) AUTO NEGATIVE (NEGATIVE); KETONE, URINE AUTO NEGATIVE (NEGATIVE); LEUKOCYTE ESTERASE, URINE AUTO TRACE (NEGATIVE); MUCUS, URINE MODERATE (NEGATIVE); NITRITE, URINE AUTO NEGATIVE (NEGATIVE); PROTEIN, URINE AUTO NEGATIVE (NEGATIVE); RBC, URINE AUTO 1 /HPF (0-3); SPECIFIC GRAVITY URINE AUTO 1.027 (1.002-1.035); SQUAMOUS EPITHELIAL CELL UR AU 1 /HPF (0-6); UROBILINOGEN, URINE AUTO 0.2 mg/dL (0.0-2.0); WBC, URINE AUTO 2 /HPF (0-3)
== END ==
LOC: M LAB REF 15:39
DX: N39.0 Urinary tract infection, site not specified (principal)
CPT/HCPCS: 81001

== ENCOUNTER → 2017-11-25 | Outpatient (CLI) | payer OTHER, BC | LOC: M LRY 18:30 | DX: S69.91XA Unspecified injury of right wrist, hand and finger(s), initial encounter (principal); X58.XXXA Exposure to other specified factors, initial encounter; Y92.9 Unspecified place or not applicable; Y93.9 Activity, unspecified; Y99.9 Unspecified external cause status ==

== ENCOUNTER → 2017-12-26 | Outpatient (CLI) | payer BC | LOC: M LAB 12:56 | DX: R39.9 Unspecified symptoms and signs involving the genitourinary system (principal) ==

== ENCOUNTER → 2017-12-26 | Outpatient (REF) | payer BC ==
[2017-12-26 14:25] LABS: APPEARANCE, URINE CLEAR (CLEAR); BACTERIA, URINE AUTO NEGATIVE (NEGATIVE); BILIRUBIN, URINE AUTO NEGATIVE (NEGATIVE); BLOOD, URINE BLOOD NEGATIVE (NEGATIVE); COLOR, URINE YELLOW (YELLOW); GLUCOSE, URINE (UA) AUTO NEGATIVE (NEGATIVE); KETONE, URINE AUTO NEGATIVE (NEGATIVE); LEUKOCYTE ESTERASE, URINE AUTO NEGATIVE (NEGATIVE); MUCUS, URINE SMALL (NEGATIVE); NITRITE, URINE AUTO NEGATIVE (NEGATIVE); PROTEIN, URINE AUTO NEGATIVE (NEGATIVE); RBC, URINE AUTO 2 /HPF (0-3); SPECIFIC GRAVITY URINE AUTO 1.024 (1.002-1.035); SQUAMOUS EPITHELIAL CELL UR AU 1 /HPF (0-6); UROBILINOGEN, URINE AUTO 0.2 mg/dL (0.0-2.0); WBC, URINE AUTO 2 /HPF (0-3)
== END ==
LOC: M LAB REF 14:03
DX: R39.9 Unspecified symptoms and signs involving the genitourinary system (principal)
CPT/HCPCS: 81001

== ENCOUNTER → 2018-03-31 | Outpatient (CLI) | payer BC ==
[2018-03-31 14:19] LABS: FREE THYROXINE INDEX 3.2 % (1.3-4.8); T UPTAKE 33 % (30-39); THYROXINE (T4) 9.8 UG/DL (4.5-12.0)
== END ==
LOC: M SMT 09:48
DX: Z13.29 Encounter for screening for other suspected endocrine disorder (principal)
CPT/HCPCS: 84443

== ENCOUNTER → 2018-05-11 | Outpatient (CLI) | payer BC ==
[~2018-05-11] MED LIST changes: -ZOFR20TA PO; +ZOFR4TAB16 PO
== END ==
LOC: M LAB 12:46
PROVIDERS: ATTEND Obstetrics & Gynecology
DX: N91.2 Amenorrhea, unspecified (principal)

== ENCOUNTER → 2018-06-11 | Outpatient (CLI) | payer BC ==
[2018-06-11 12:49] LABS: BASO % 0.2 % (0.0-1.0); HEMATOCRIT 33.8 % (36.0-47.0); HEMOGLOBIN 10.7 g/dl (12.0-15.5); LYMPH % 13.4 % (24.0-44.0); MEAN CORPUSCULAR HEMOGLOBIN 25.2 pg (27.0-33.0); MEAN CORPUSCULAR HGB CONC 31.7 g/dl (32.0-36.5); MEAN CORPUSCULAR VOLUME 79.7 fl (80.0-96.0); MONO # 0.9 10^3/uL (0.0-0.8); MONO % 5.9 % (0.0-5.0); NEUTROPHILS # 11.9 10^3/uL (1.8-7.7); NEUTROPHILS % 80.2 % (36.0-66.0); PLATELET COUNT, AUTOMATED 289 10^3/uL (150-450); RED BLOOD COUNT 4.24 10^6/uL (4.00-5.40); WHITE BLOOD COUNT 14.8 10^3/uL (4.0-10.0)
[2018-06-11 13:11] LABS: GLUCOSE CHALLENGE TEST 1 HOUR 127 MG/DL (LESS THAN 140); THYROID STIMULATING HORMONE 0.672 uIU/ML (0.358-3.740)
[2018-06-11 13:41] LABS: HEMOGLOBIN A1c 6.1 %
[2018-06-11 15:43] LABS: CHLAMYDIA DNA AMPLIFICATION NEGATIVE (NEGATIVE); GC DNA AMPLIFICATION NEGATIVE (NEGATIVE)
[2018-06-12 11:59] LABS: RUBELLA IgG QUALITATIVE IMMUNE (IMMUNE)
[2018-06-12 12:28] LABS: HEPATITIS C VIRUS ABY INDEX < 0.0 INDEX (<0.8)
[2018-06-12 12:29] LABS: HIV 1&2 SCREEN CENTAUR NEGATIVE (NEGATIVE)
== END ==
LOC: M LAB 11:10
PROVIDERS: ATTEND Advanced Practice Midwife
DX: Z36.89 Encounter for other specified antenatal screening (principal)

== ENCOUNTER → 2018-07-23 | Outpatient (CLI) | payer BC | LOC: M SMT 09:06 | PROVIDERS: ATTEND Advanced Practice Midwife | DX: Z34.82 Encounter for supervision of other normal pregnancy, second trimester (principal); Z36.89 Encounter for other specified antenatal screening ==

== ENCOUNTER → 2018-08-05 | Outpatient (REF) | payer BC | LOC: M LAB REF 13:00 | PROVIDERS: ATTEND Obstetrics & Gynecology | DX: R10.2 Pelvic and perineal pain (principal); Z34.81 Encounter for supervision of other normal pregnancy, first trimester; Z3A.00 Weeks of gestation of pregnancy not specified ==

== ENCOUNTER → 2018-08-14 | Outpatient (CLI) | payer BC ==
--- NOTE | 2018-08-14 14:57 | REP ---
OB ULTRASOUND: Real-time sonographic evaluation of the gravid uterus is performed. There is a single living intrauterine gestation. Estimated gestational age 18 weeks, EDC 01/15/2019. Today's measurements indicate appropriate growth. BPD 37 mm = 17 weeks 3 days, 26th percentile HC 145 mm = 17 weeks 5 days, 38th percentile AC 122 mm = 17 weeks 6 days, 47th percentile Femur length 26 mm = 17 weeks 5 days, 41st percentile HC/AC ratio 1.18 within normal range. Estimated weight 210 grams, 39th percentile. Cervix is closed and measures 4.8 cm in length. heart rate 126 beats per minute. SEEN/GROSSLY UNREMARKABLE Lateral ventricles Yes Posterior fossa Yes Upper lip No Four-chamber heart Yes LVOT No RVOT No Stomach Yes Cord insertion Yes Three vessel cord Yes Kidneys Yes Bladder No Spine Yes position: Variable. Placenta: Posterior and low lying with no evidence of previa or abruption. It is grade 0. Multiple large venous lakes are seen. Vessels appear to cross the internal cervical os compatible with vasa previa. Patient declined endovaginal ultrasound. Amniotic fluid: Appears within normal limits for gestational age. Electronically Signed by Niels Norman MD 08/17/2018 01:40 P
== END ==
LOC: M RAD 12:22
PROVIDERS: ATTEND Obstetrics & Gynecology
DX: Z34.82 Encounter for supervision of other normal pregnancy, second trimester (principal); Z3A.18 18 weeks gestation of pregnancy

== ENCOUNTER → 2018-08-18 | Outpatient (CLI) | payer BC ==
--- NOTE | 2018-08-19 04:21 | REP ---
Clinical: Vasa previa. Cervical length. Comparison: 08/14/2018 . Findings: Examination demonstrates a single live intrauterine in cephalic presentation. motion is identified by technologist. Placenta is noted posteriorly and grade I measuring approximately 2.1 cm from the closed internal os. A placental weiner is identified measuring 14 x 4 x 17 mm at the tip of the placenta and marginal cord insertion 1.1 cm from the placental tip is also appreciated. Cervix measures 4.1 cm in length and appears closed. Impression: 1. Cervix measures 4.1 cm length and appears closed. 2. Placenta measures 2.1 cm from the closed internal os and includes placental weiner as well as marginal cord insertion. Electronically Signed by Davie Gutiérrez MD 08/19/2018 04:13 A
== END ==
LOC: M RAD 13:29
PROVIDERS: ATTEND Obstetrics & Gynecology
DX: Z34.82 Encounter for supervision of other normal pregnancy, second trimester (principal); Z3A.00 Weeks of gestation of pregnancy not specified

== ENCOUNTER → 2018-09-21 | Outpatient (CLI) | payer BC ==
--- NOTE | 2018-09-22 05:13 | REP ---
Clinical: Anatomical evaluation. Comparison: 08/18/2018 . Findings: Examination demonstrates a single live intrauterine in transverse (head to maternal right) presentation. motion is identified by technologist. Placenta is noted posterior and grade one without evidence for placenta previa or abruption. A venous weiner is identified within the placenta and there is marginal cord insertion approximately 2.5 cm from the placental tip. Amniotic fluid volume is normal. Cervix measures 3.5 cm in length and appears closed. No evidence for nuchal cord. Gestational age by LMP 23 weeks 3 days with SELVIN 01/15/2019 . Gestational age by current measurements 22 weeks 2 days with SELVIN 01/23/2019 . FHR equals 131 beats per minute. Estimated weight 513 grams ( 20th percentile). Anatomical assessment demonstrates normal structures including cranium, choroid plexus, cavum, facial features, lungs, four-chamber heart/ventricular outflow tracts, diaphragm, stomach, cord insertion/three-vessel cord, kidneys/bladder, spine, and extremities. Impression: 1. Single live intrauterine in transverse lie demonstrating appropriate interval growth. 2. Placenta includes venous weiner and marginal cord insertion approximately 2.5 cm from the placental tip. No evidence of previa. 3. In conjunction with prior examinations, anatomical assessment is complete and normal. Electronically Signed by Davie Gutiérrez MD 09/22/2018 05:05 A
== END ==
LOC: M RAD 13:26
PROVIDERS: ATTEND Obstetrics & Gynecology
DX: Z36.2 Encounter for other antenatal screening follow-up (principal); Z3A.23 23 weeks gestation of pregnancy

== ENCOUNTER → 2018-10-09 | Outpatient (CLI) | payer BC ==
[2018-10-09 11:28] LABS: HEMATOCRIT 27.5 % (36.0-47.0); HEMOGLOBIN 8.5 g/dl (12.0-15.5); MEAN CORPUSCULAR HEMOGLOBIN 24.6 pg (27.0-33.0); MEAN CORPUSCULAR HGB CONC 30.9 g/dl (32.0-36.5); MEAN CORPUSCULAR VOLUME 79.5 fl (80.0-96.0); PLATELET COUNT, AUTOMATED 278 10^3/uL (150-450); RED BLOOD COUNT 3.46 10^6/uL (4.00-5.40)
== END ==
LOC: M LAB 09:16
PROVIDERS: ATTEND Obstetrics & Gynecology
DX: Z34.82 Encounter for supervision of other normal pregnancy, second trimester (principal); Z3A.00 Weeks of gestation of pregnancy not specified
CPT/HCPCS: 36415; 82950; 85027; 86850; J2790

== ENCOUNTER → 2018-10-29 | Outpatient (CLI) | payer BC | LOC: M LAB 08:50 | PROVIDERS: ATTEND Obstetrics & Gynecology | DX: Z36.89 Encounter for other specified antenatal screening (principal) ==

== ENCOUNTER → 2018-12-09 | Outpatient (CLI) | payer BC ==
[2018-12-09 12:36] LABS: MEAN CORPUSCULAR HEMOGLOBIN 22.7 pg (27.0-33.0); MEAN CORPUSCULAR HGB CONC 29.6 g/dl (32.0-36.5); MEAN CORPUSCULAR VOLUME 76.5 fl (80.0-96.0); PLATELET COUNT, AUTOMATED 275 10^3/uL (150-450); RED BLOOD COUNT 3.53 10^6/uL (4.00-5.40); WHITE BLOOD COUNT 11.1 10^3/uL (4.0-10.0)
== END ==
LOC: M LAB 11:24
PROVIDERS: ATTEND Obstetrics & Gynecology
DX: Z34.82 Encounter for supervision of other normal pregnancy, second trimester (principal)

== ENCOUNTER → 2018-12-15 | Outpatient (REF) | payer BC ==
[~2018-12-15] MED LIST changes: +OMEP20TA9 PO; +OMEP40CA97 PO; +OXYC1TAB23 PO; +PRENTAB55 PO
== END ==
LOC: M LAB REF 13:02
PROVIDERS: ATTEND Advanced Practice Midwife
DX: Z34.83 Encounter for supervision of other normal pregnancy, third trimester (principal)

== ENCOUNTER 2019-01-11 05:07 | Inpatient (IN) | payer BC ==
[2019-01-11] VITALS (16 sets, daily range): BP systolic 87–124; BP diastolic 46–66
[~2019-01-11] VITALS: Ht 167.6 cm; Wt 115.0 kg
[~2019-01-11 05:07] MED LIST changes: -OMEP20TA9 PO; -OMEP40CA97 PO; -OXYC1TAB23 PO
[2019-01-11] MEDS ORDERED: LR 1,000 ML IV ONE (05:30)
[2019-01-11] MEDS ORDERED: ceFAZolin SOD 2 GM in IV 1 EA IV ONE (05:30)
[2019-01-11] MEDS ORDERED: LR 1,000 ML IV SCH ×2 (05:30→16:45)
[2019-01-11] MEDS ORDERED: BICITRA 30ML SOLN UDC PO ONE (05:30)
[2019-01-11] MEDS ORDERED: OMEP20TA9 PO (05:59)
[2019-01-11 07:01] LABS: HEMATOCRIT 23.1 % (36.0-47.0); MEAN CORPUSCULAR HEMOGLOBIN 21.4 pg (27.0-33.0); MEAN CORPUSCULAR HGB CONC 29.9 g/dl (32.0-36.5); MEAN CORPUSCULAR VOLUME 71.7 fl (80.0-96.0); PLATELET COUNT, AUTOMATED 226 10^3/uL (150-450); RED BLOOD COUNT 3.22 10^6/uL (4.00-5.40); WHITE BLOOD COUNT 11.3 10^3/uL (4.0-10.0)
[2019-01-11 07:08] LABS: HEMOGLOBIN 6.9 g/dl (12.0-15.5)
[2019-01-11 12:40] LABS: HEMATOCRIT 28.4 % (36.0-47.0); HEMOGLOBIN 8.5 g/dl (12.0-15.5); MEAN CORPUSCULAR HEMOGLOBIN 21.9 pg (27.0-33.0); MEAN CORPUSCULAR HGB CONC 29.9 g/dl (32.0-36.5); MEAN CORPUSCULAR VOLUME 73.2 fl (80.0-96.0); PLATELET COUNT, AUTOMATED 210 10^3/uL (150-450); RED BLOOD COUNT 3.88 10^6/uL (4.00-5.40); WHITE BLOOD COUNT 11.3 10^3/uL (4.0-10.0)
[2019-01-11] MEDS ORDERED: MORPHINE PRES-FREE INJ 10 MG/10 ML VIAL (J2274) As Ordered ONE (15:29)
[2019-01-11] MEDS ORDERED: KETOROLAC 60 MG/2 ML VIAL (J1885) As Ordered ONE (15:29)
[2019-01-11] MEDS ORDERED: fentaNYL 100 MCG/2 ML INJECTION (J3010) As Ordered ONE ×3 (15:29→18:50)
[2019-01-11] MEDS ORDERED: ONDANSETRON 4MG/2ML VIAL (J2405) As Ordered ONE (15:29)
[2019-01-11] MEDS ORDERED: ACETAMINOPHEN 1000MG 100ML IV BTL (OFIRMEV) (J0131 PER 10MG) As Ordered ONE (15:30)
[2019-01-11] MEDS ORDERED: OXYTOCIN INJ 10 UNITS/ML VIAL (J2590) As Ordered ONE (15:30)
[2019-01-11] MEDS ORDERED: METOCLOPRAMIDE INJ 10MG/2ML VIAL (J2765) As Ordered ONE (15:33)
[2019-01-11] MEDS ORDERED: dexameTHASONE 4 MG/ML 1ML VIAL (J1100) As Ordered ONE (15:34)
[2019-01-11] MEDS ORDERED: OXYTOCIN DRIP 30 UNITS in IV 1 EA IV SCH (16:17)
[2019-01-11] MEDS: LR 1,000 ML IV SCH (16:17)
[2019-01-11] MEDS ORDERED: PROMETHAZINE 25 MG TAB PO PRN (16:30)
[2019-01-11] MEDS ORDERED: PERCOCET 5MG/325MG TAB PO PRN (16:30)
[2019-01-11] MEDS ORDERED: ONDANSETRON 4MG/2ML VIAL (J2405) IV PRN ×2 (16:30→16:45)
[2019-01-11] MEDS ORDERED: RHOGAM 300 MCG (1500 IU) INJ (J2790) IM SCH (16:30)
[2019-01-11] MEDS ORDERED: ACETAMINOPHEN 500 MG TAB PO PRN (16:30)
[2019-01-11] MEDS ORDERED: MEASLES,MUMPS,RUBELLA VACCINE INJ (MMR-II) (90707) SC SCH (16:30)
[2019-01-11] MEDS ORDERED: OXYTOCIN 30 UNITS IN 0.9% NaCl 500ML IV BAG (J2590) As Ordered ONE (16:36)
[2019-01-11] MEDS ORDERED: oxyCODONE 5MG TAB PO PRN (16:45)
[2019-01-11] MEDS: fentaNYL 100 MCG/2 ML INJECTION (J3010) IV PRN ×6 (16:47→20:03)
[2019-01-11] MEDS: PERCOCET 5MG/325MG TAB PO PRN (17:34)
[2019-01-11] MEDS ORDERED: oxyCODONE 5MG TAB As Ordered ONE (17:53)
[2019-01-11] MEDS ORDERED: MIDAZOLAM INJ 2 MG/2 ML VIAL (J2250) As Ordered ONE (18:50)
[2019-01-11] MEDS ORDERED: MEPERIDINE INJ 25 MG/ML VIAL (J2175) As Ordered ONE ×2 (18:59→19:00)
[2019-01-11] MEDS ORDERED: MEPERIDINE INJ 25 MG/ML VIAL (J2175) IM ONE (19:00)
[2019-01-11 19:36] LABS: HEMOGLOBIN 7.8 g/dl (12.0-15.5)
[2019-01-11] MEDS: MIDAZOLAM INJ 2 MG/2 ML VIAL (J2250) IV PRN ×2 (20:01→20:03)
[2019-01-11] MEDS: DOCUSATE SODIUM 100 MG CAP PO SCH (22:24)
[2019-01-11] MEDS: KETOROLAC 30 MG/ML VIAL (J1885) IV SCH (22:24)
[2019-01-11] MEDS: OMEPRAZOLE 20 MG CAP PO SCH (22:24)
[2019-01-11] MEDS ORDERED: MEPIVACAINE HCL 1.5% 30 ML VIAL (J0670) ONE (23:11)
[2019-01-11] MEDS ORDERED: ROPIvacaine 0.5% 30 ML INJECTION (J2795 PER 1MG) ONE (23:11)
[2019-01-11] MEDS ORDERED: dexameTHASONE 10 MG/1 ML VIAL PRES.FREE (J1100) ONE (23:11)
[2019-01-11] MEDS ORDERED: LIDOCAINE 1% MDV 20ML VIAL ONE (23:11)
[2019-01-12] VITALS (7 sets, daily range): BP systolic 95–119; BP diastolic 50–58
[2019-01-12] MEDS: LR 1,000 ML IV SCH ×2 (00:17→10:03)
[2019-01-12] MEDS: KETOROLAC 30 MG/ML VIAL (J1885) IV SCH ×2 (03:25→10:26)
[2019-01-12] MEDS: PERCOCET 5MG/325MG TAB PO PRN ×3 (05:40→18:03)
--- NOTE | 2019-01-12 06:46 | IPNPDOC ---
Progress Note Date of Service: Jan 12, 2019 Day#: 1 Progress Note SUBJECT: Reports she feels fatigued and weak. States pain has improved compared to yesterday. She has not been out of bed. OBJECTIVE: VITAL SIGNS: Within normal limits, afebrile. See below. Alert and oriented times three. Breath sounds clear to auscultation. Heart rate: Regular rate and rhythm, no murmurs, rubs or gallops. Abdomen: Fundus firm at U. Soft. Minimal lochia. Catheter still present and draining well. ASSESSMENT: Day 1 postoperative PLAN: 1. Continue with nursing care and pain management. 2. 2 units of PRBCs ordered. 3. Patient to get OOB and to BR and have catheter removed after she receives transfusion. VS, I&O, 24H, Fishbone Vital Signs/I&O Vital Signs Date Time Temp Pulse Resp B/P (MAP) Pulse Ox O2 Delivery O2 Flow Rate FiO2 01/12/19 06:28 98.1 75 16 96/50 (65) 95 01/11/19 19:50 3 I&O- Last 24 Hours up to 6 AM 01/12/19 06:00 Intake Total 2602 ml Output Total 4875 ml Balance -2273 ml Laboratory Data 24H LABS Laboratory Tests 2 01/11/19 06:45: Nucleated Red Blood Cells % (auto) 1.1H, Syphilis Serology NONREACTIVE 01/11/19 12:20: Nucleated Red Blood Cells % (auto) 0.9H CBC/BMP Laboratory Tests 01/11/19 06:45 Red Blood Count 3.22 L, Mean Corpuscular Volume 71.7 L, Mean Corpuscular Hemoglobin 21.4 L, Mean Corpuscular Hemoglobin Concent 29.9 L, Red Cell Distribution Width 17.2 H 01/11/19 12:20 Red Blood Count 3.88 L, Mean Corpuscular Volume 73.2 L, Mean Corpuscular Hemoglobin 21.9 L, Mean Corpuscular Hemoglobin Concent 29.9 L, Red Cell Distribu tion Width 18.6 H 01/11/19 19:23 Item Value Date Time White Blood Count 19.1 10^3/uL H 01/12/19 0707 Red Blood Count 2.90 10^6/uL L 01/12/19 0707 Hemoglobin 6.4 g/dl *L 01/12/19 0707 Hematocrit 21.1 % L 01/12/19 0707 Mean Corpuscular Volume 72.8 fl L 01/12/19 0707 Mean Corpuscular Hemoglobin 22.1 pg L 01/12/19 0707 Mean Corpuscular Hemoglobin Concent 30.3 g/dl L 01/12/19 0707 Red Cell Distribution Width 18.0 % H 01/12/19 0707 Platelet Count 205 10^3/uL 01/12/19 0707 MAGALI CARRINGTON CNM Jan 12, 2019 06:46
[2019-01-12 07:22] LABS: HEMATOCRIT 21.1 % (36.0-47.0); MEAN CORPUSCULAR HEMOGLOBIN 22.1 pg (27.0-33.0); MEAN CORPUSCULAR HGB CONC 30.3 g/dl (32.0-36.5); MEAN CORPUSCULAR VOLUME 72.8 fl (80.0-96.0); PLATELET COUNT, AUTOMATED 205 10^3/uL (150-450); WHITE BLOOD COUNT 19.1 10^3/uL (4.0-10.0)
[2019-01-12 07:26] LABS: HEMOGLOBIN 6.4 g/dl (12.0-15.5)
[2019-01-12] MEDS ORDERED: PRENATAL VITAMINS CHEWABLE TABLET PO SCH (09:00)
[2019-01-12] MEDS: PRENATAL VITAMINS CHEWABLE TABLET PO SCH (10:26)
[2019-01-12] MEDS: FERROUS SULFATE 325MG TAB PO SCH (10:27)
[2019-01-12] MEDS: DOCUSATE SODIUM 100 MG CAP PO SCH ×2 (10:27→22:20)
[2019-01-12] MEDS: IBUPROFEN 800 MG TAB PO SCH (17:58)
[2019-01-12 19:13] LABS: HEMATOCRIT 24.5 % (36.0-47.0); HEMOGLOBIN 7.6 g/dl (12.0-15.5)
[2019-01-12] MEDS: OMEPRAZOLE 20 MG CAP PO SCH (22:20)
[2019-01-13 02:00] VITALS: BP 91/55
[2019-01-13] MEDS: IBUPROFEN 800 MG TAB PO SCH ×3 (02:00→18:02)
[2019-01-13] MEDS: PERCOCET 5MG/325MG TAB PO PRN ×6 (03:00→20:42)
[2019-01-13 06:38] VITALS: BP 111/55
[2019-01-13 06:47] LABS: HEMATOCRIT 24.4 % (36.0-47.0); HEMOGLOBIN 7.5 g/dl (12.0-15.5); MEAN CORPUSCULAR HEMOGLOBIN 23.9 pg (27.0-33.0); MEAN CORPUSCULAR HGB CONC 30.7 g/dl (32.0-36.5); MEAN CORPUSCULAR VOLUME 77.7 fl (80.0-96.0); PLATELET COUNT, AUTOMATED 196 10^3/uL (150-450); RED BLOOD COUNT 3.14 10^6/uL (4.00-5.40); WHITE BLOOD COUNT 13.7 10^3/uL (4.0-10.0)
[2019-01-13] MEDS: FERROUS SULFATE 325MG TAB PO SCH (08:02)
[2019-01-13] MEDS: PRENATAL VITAMINS CHEWABLE TABLET PO SCH (08:02)
[2019-01-13] MEDS: DOCUSATE SODIUM 100 MG CAP PO SCH ×2 (08:03→20:41)
[2019-01-13 10:15] VITALS: BP 100/58
[2019-01-13 18:09] VITALS: BP 113/66
[2019-01-13] MEDS: OMEPRAZOLE 20 MG CAP PO SCH (20:41)
[2019-01-14] MEDS: PERCOCET 5MG/325MG TAB PO PRN ×2 (01:40→07:36)
[2019-01-14] MEDS: IBUPROFEN 800 MG TAB PO SCH ×2 (01:40→09:47)
[2019-01-14 06:43] VITALS: BP 125/62
--- NOTE | 2019-01-14 07:16 | DSES ---
DATE OF ADMISSION: 01/11/2019 DATE OF DISCHARGE: 01/14/2019 DISCHARGE DIAGNOSIS: Primary section with bilateral tubal ligation, postoperative day #3, stable. SURGEON: Dr. Bo Garza COMMUNITY LIVING INSTRUCTOR: Maylin Lentz, certified nurse casting machine operator HISTORY: Judi is a 33-year-old who underwent a primary section with a [place] bilateral tubal ligation due to a history of a fourth-degree laceration in a prior spontaneous vaginal delivery. Her surgery was complicated by an estimated blood loss of 700 mL and low hemoglobin on admission. She did deliver a 3790 gram female, 8 pounds 6 ounces, scores 9 and 9. Postoperatively, her course was complicated by symptomatic anemia. She did receive 4 units of packed red blood cells (RBCs) on 01/12/2019 and now reports that she is feeling much better. She denies dizziness, palpitations, and weakness, as well as headaches. She is both breast and bottle feeding. She has been out of bed for self care, sheila care, and infant care. Her pain has been well managed by oral pain medications. She is tolerating oral fluids and a regular diet. She is voiding without difficulty and passing flatus. OBJECTIVE: Temperature 98.7, pulse 72, respirations 18, blood pressure (BP) is 113/66. She is alert and oriented times three, in no discomfort unless she is active. Breasts are soft, nontender. Abdomen: Fundus firm at one fingerbreadth below umbilicus. Dressing is dry and intact across the incision. There is no drainage noted. Perineum is intact. Lochia rubra scant. Preoperative CBC on 01/11/2019, hemoglobin 8.5, hematocrit 28.4, platelets 210. Postoperative day #1 CBC with a hemoglobin of 6.4, hematocrit 21.1, and a platelet of 205. Postoperative day #2 following 4 units of packed RBCs, hemoglobin of 7.5, hematocrit 24.4, and platelet 196. PLAN: Discharge the patient home today. She is to followup at [facility] for a 2-week incision check and an 8-week visit. Prescriptions for pain management have been e-prescribed by Dr. Bo Garza to her pharmacy. She has been reviewed discharge instructions that include breast care, incision care, sheila care, pelvic rest, activity and lifting restrictions, danger signs to report, as well as access to her provider. All the patient's questions have been answered, and she is agreeable to discharge today. Edited: [facility] 01/15/2019 [id number]
[2019-01-14] MEDS: DOCUSATE SODIUM 100 MG CAP PO SCH (07:37)
[2019-01-14] MEDS: FERROUS SULFATE 325MG TAB PO SCH (07:37)
[2019-01-14] MEDS: PRENATAL VITAMINS CHEWABLE TABLET PO SCH (07:37)
[2019-01-14] MEDS ORDERED: MIRALAX *UNIT DOSE* 17GM PACKET PO PRN (09:00)
[2019-01-14] MEDS ORDERED: INFLUENZA QUADRIVALENT PF VACCINE 0.5ML SYRINGE (90686) IM ONE (09:00)
[2019-01-14] MEDS ORDERED: OXYC1TAB23 PO (09:15)
[2019-01-15] MEDS ORDERED: OMEP40CA2 PO (15:41)
[2019-01-15] MEDS ORDERED: OXYC1TAB23 PO (15:41)
== END 2019-01-14 12:50 | disposition home or self-care (01) | DRG 540 ==
LOC: M LDI 05:07 → M OBS 21:16
PROVIDERS: ADMIT Obstetrics & Gynecology; ATTEND Obstetrics & Gynecology
PROC: 0UB70ZZ Excision of Bilateral Fallopian Tubes, Open Approach (ICD-10-PCS; 2019-01-11)
PROC: 10D00Z1 Extraction of Products of Conception, Low, Open Approach (ICD-10-PCS; principal; 2019-01-11 07:30)
DX: O99.89 Other specified diseases and conditions complicating pregnancy, childbirth and the puerperium (principal); Z3A.39 39 weeks gestation of pregnancy; Z30.2 Encounter for sterilization; Z37.0 Single live birth; O99.02 Anemia complicating childbirth; D50.9 Iron deficiency anemia, unspecified; O26.93 Pregnancy related conditions, unspecified, third trimester; O94 Sequelae of complication of pregnancy, childbirth, and the puerperium

== ENCOUNTER 2019-01-15 12:23 | Inpatient (IN) | payer BC ==
[~2019-01-15] VITALS: Ht 167.6 cm; Wt 106.0 kg
[~2019-01-15 12:23] MED LIST changes: +OMEP20TA9 PO; +OXYC1TAB23 PO
[2019-01-15 13:24] LABS: BASO % 0.3 % (0.0-1.0); HEMOGLOBIN 9.2 g/dl (12.0-15.5); LYMPH # 1.2 10^3/uL (1.5-5.0); LYMPH % 8.3 % (24.0-44.0); MEAN CORPUSCULAR HEMOGLOBIN 23.7 pg (27.0-33.0); MEAN CORPUSCULAR HGB CONC 30.7 g/dl (32.0-36.5); MEAN CORPUSCULAR VOLUME 77.3 fl (80.0-96.0); MONO # 0.4 10^3/uL (0.0-0.8); MONO % 3.1 % (0.0-5.0); NEUTROPHILS # 12.2 10^3/uL (1.5-8.5); NEUTROPHILS % 87.4 % (36.0-66.0); PLATELET COUNT, AUTOMATED 272 10^3/uL (150-450); RED BLOOD COUNT 3.88 10^6/uL (4.00-5.40); WHITE BLOOD COUNT 13.9 10^3/uL (4.0-10.0)
--- NOTE | 2019-01-15 13:41 | REP ---
PORTABLE CHEST X-RAY: Single view. HISTORY: Right chest pain. Shortness of breath. COMPARISON STUDY: October 12, 2016. FINDINGS: EKG monitoring electrodes are seen. The chest is exposed at a lesser level of inspiration. No infiltrate is seen. Pleural angles are sharp. Pulmonary vasculature is not increased. Heart size is not felt to be enlarged. IMPRESSION: Lesser level of inspiration. Otherwise no acute disease. Electronically Signed by Mark Martinez MD 01/15/2019 02:41 P
[2019-01-15] MEDS ORDERED: PERCOCET 5MG/325MG TAB PO ONE ×2 (13:45→15:45)
[2019-01-15 13:50] LABS: ALBUMIN 2.4 GM/DL (3.2-5.2); ALT/SGPT 32 U/L (12-78); BILIRUBIN,DIRECT 0.2 MG/DL (0.0-0.2); BILIRUBIN,TOTAL 0.6 MG/DL (0.2-1.0); BLOOD UREA NITROGEN 8 MG/DL (7-18); CALCIUM LEVEL 8.5 MG/DL (8.5-10.1); CARBON DIOXIDE LEVEL 25 MEQ/L (21-32); CHLORIDE LEVEL 104 MEQ/L (98-107); CK-MB VALUE MASS < 1.0 NG/ML (<3.6); CPK CREATINE PHOSPHOKINASE 64 U/L (26-192); CREATININE FOR GFR 0.66 MG/DL (0.55-1.30); GLOMERULAR FILTRATION RATE > 60.0 (>60); GLUCOSE, FASTING 75 MG/DL (70-100); LIPASE 64 U/L (73-393); MB/CK RELATIVE INDEX 1.56 (< OR =4); POTASSIUM SERUM 4.2 MEQ/L (3.5-5.1); SODIUM LEVEL 138 MEQ/L (136-145); TOTAL PROTEIN 5.7 GM/DL (6.4-8.2); TROPONIN I < 0.02 NG/ML (< 0.10)
[2019-01-15 14:09] LABS: INR 1.05; PROTHROMBIN TIME 13.4 SECONDS (11.8-14.0)
[2019-01-15 14:10] LABS: PARTIAL THROMBOPLASTIN TIME 30.5 SECONDS (25.0-38.4)
[2019-01-15] MEDS ORDERED: ISOVUE-370 76% 100ML VIAL (Q9967) As Ordered ONE (14:36)
[2019-01-15] MEDS ORDERED: PERCOCET 5MG/325MG TAB PO PRN (15:30)
--- NOTE | 2019-01-15 15:34 | REP ---
CT ANGIO CHEST: TECHNIQUE: Axial contrast enhanced images from the thoracic inlet to the upper abdomen using 100 mL Isovue 370 intravenous contrast material with multiplanar reformations. There is no CT evidence of pulmonary embolism. There is no thoracic aortic aneurysm or dissection. The heart is normal in size. There is no mediastinal, hilar or chest wall lymphadenopathy. There are tiny pleural effusions bilaterally. There is a small pericardial effusion. No infiltrate is seen in either lung. Note is made of a lobulated oval nodule in the upper inner right breast which measures approximately 2.5 x 1.5 x 2.8 cm. Visualized upper abdominal structures are unremarkable. IMPRESSION: No CT evidence of pulmonary embolism. There are tiny bilateral pleural effusions. There is a small pericardial effusion. There is no evidence of acute infiltrate. Incidental note is made of an oval lobulated nodule in the upper inner right breast which measures 2.5 x 1.5 x 2.8 cm, possibly a cyst. Recommend nonemergent right breast ultrasound to further evaluate. Electronically Signed by Niels Norman MD 01/15/2019 05:02 P
[2019-01-15] MEDS ORDERED: OMEP40CA2 PO (15:41)
[2019-01-15] MEDS ORDERED: OXYC1TAB23 PO (15:41)
[2019-01-15] MEDS: ALPRAZolam 0.25 MG TAB PO PRN (16:50)
[2019-01-15] MEDS: PERCOCET 5MG/325MG TAB PO PRN ×2 (16:51→21:21)
[2019-01-15 18:00] VITALS: BP 148/70
[2019-01-15] MEDS: KETOROLAC 30 MG/ML VIAL (J1885) IV PRN (18:51)
[2019-01-15 20:00] VITALS: BP 130/76
--- NOTE | 2019-01-15 20:11 | ECGEPIP ---
[facility], [place] - ED Test Date: 2019-01-15 Pat Name: HOLLIE SEXTON Department: Room: - Gender: Female Ecd: YANCI : 1985 Requested By: Chad Samson Order Number: [id number] Reading MD: Luiz Beck Measurements Intervals [place] Rate: 71 P: 53 MS: 142 QRS: 47 QRSD: 78 T: 26 QT: 359 QTc: 392 Interpretive Statements SINUS RHYTHM NSTTW ABNORMALITIES SIMILAR TO 10/12/16 Electronically Signed on 01-15-2019 20:10:45 EDT by Luiz Beck
--- NOTE | 2019-01-15 20:42 | ECHO ---
DATE OF PROCEDURE: 01/15/2019 REFERRING PHYSICIAN: Billy Robles MD INDICATION: Pericardial effusion. HEIGHT: 157 cm WEIGHT: 111.2 kg 2D MEASUREMENTS: Ventricular septum: 0.83 cm Posterior wall: 0.87 cm Left ventricle diastole: 5.2 cm Aortic root: 3.5 cm Left atrium: 3.5 cm Aortic annulus: 2.0 cm Inferior vena cava: 2.5 cm with moderate reduction of respiratory variation. DOPPLER MEASUREMENTS: Aortic valve velocity: 143 cm/s LVOT velocity: 114 cm/s LVOT VTI: 21.1 cm Mitral E velocity: 89.7 cm/s Mitral A velocity: 61.1 cm/s Mitral deceleration time: 239 ms No mitral regurgitation. No aortic regurgitation. Very mild tricuspid regurgitation. Estimated right ventricle systolic pressure 30 mmHg assuming a right atrial pressure of 10 mmHg. Pulmonary artery systolic pressure 28 mmHg. MITRAL ANNULAR TISSUE DOPPLER: E prime septal: 9.36 cm/s E prime lateral: 10.6 cm/s DESCRIPTION: Rhythm was sinus. Image quality overall was good. This is a 2D, M-mode, color flow Doppler and pulse wave Doppler examination that included mitral annular tissue Doppler. CONCLUSIONS: 1. Normal left ventricle internal dimensions and wall thickness. Normal regional left ventricle (LV) wall motion and wall thickening. Normal LV systolic function. Left ventricular ejection fraction (LVEF) 60% by visual estimate. Normal LV diastolic function. 2. Very small pericardial effusion. No cardiac chamber collapse. No significant respiratory variation of intracardiac velocities. 3. Presence of left pleural effusion. 4. Appearance of normal right ventricle size and systolic function. 5. Normal appearing cardiac valve without functional abnormalities. 6. Inferior vena cava plethora. Suggestive of central venous pressure of at least 10 mmHg. Appearance of hepatic congestion.
[2019-01-16] VITALS: BP 140/76
[2019-01-16] MEDS: KETOROLAC 30 MG/ML VIAL (J1885) IV PRN ×2 (01:27→22:08)
[2019-01-16] MEDS: PERCOCET 5MG/325MG TAB PO PRN ×5 (02:05→21:23)
[2019-01-16 04:00] VITALS: BP 122/60
[2019-01-16 06:01] LABS: HEMATOCRIT 31.7 % (36.0-47.0); HEMOGLOBIN 9.4 g/dl (12.0-15.5); MEAN CORPUSCULAR HEMOGLOBIN 23.9 pg (27.0-33.0); MEAN CORPUSCULAR HGB CONC 29.7 g/dl (32.0-36.5); MEAN CORPUSCULAR VOLUME 80.5 fl (80.0-96.0); PLATELET COUNT, AUTOMATED 241 10^3/uL (150-450); RED BLOOD COUNT 3.94 10^6/uL (4.00-5.40); WHITE BLOOD COUNT 7.3 10^3/uL (4.0-10.0)
[2019-01-16 06:30] LABS: BLOOD UREA NITROGEN 9 MG/DL (7-18); C REACTIVE PROTEIN QUANTITATIV 9.41 MG/DL (0.00-0.30); CALCIUM LEVEL 8.4 MG/DL (8.5-10.1); CARBON DIOXIDE LEVEL 23 MEQ/L (21-32); CHLORIDE LEVEL 108 MEQ/L (98-107); CREATININE FOR GFR 0.66 MG/DL (0.55-1.30); GLOMERULAR FILTRATION RATE > 60.0 (>60); GLUCOSE, FASTING 85 MG/DL (70-100); NT-PRO BNP 385 PG/ML (<125); POTASSIUM SERUM 4.3 MEQ/L (3.5-5.1); SODIUM LEVEL 136 MEQ/L (136-145)
[2019-01-16] MEDS: ALPRAZolam 0.25 MG TAB PO PRN (06:41)
[2019-01-16 08:00] VITALS: BP 139/78
--- NOTE | 2019-01-16 11:09 | IPNPDOC ---
Text Note Date of Service The patient was seen on 01/16/19. NOTE Brief history: 33 yo woman 5 days s/p requiring 4u pRBCs, with a history of LUIS ANGEL, GERD, obesity, anemia, non-smoker, previously on OCPs without complications, with a family history significant for a maternal grandmother who of a fatal clot and mother with a recent DVT/PE who presented with 2 days of acute worsening SOB with RUQ and right back pain that is worse with breathing. Initial work up revealed known anemia to Hgb 9s, CTA PE protocol with no evidence of a PE but noted small bilateral pleural effusions and a pericardial effusion, and a TTE that showed a small pericardial effusion, a plethoric IVC and hepatic congestion with a normal EF, no valvular pathology or wall motion abnormalities c/f hepatic HTN c/f a clot within the hepatic circulation. Of note, LFTs were normal. Subjective: -Continues to be short of breath without hypoxemia -Has RUQ and R back pain with deep breathing, so taking short breaths -No chest pain, no palpitations, no LE pain or swelling, no dysuria 12 point ROS was reviewed and only the above mentioned were positive, but all other elements were negative. Objective: Vitals: see below, afebrile General: Mild distress, morbidly obese HEENT: NCAT, anicteric, no significant pallor, PERRLA, EOMI, clear posterior oropharynx without erythema or exudates Neck: no palpable thyromegaly, JVD difficult to assess given habitus, no adenopathy Pulm: Speaking in full sentences however taking taking short breaths, CTAB no crackles or wheezing Cardiac: RRR, no mrg Abdomen: Tender RUQ, also tender LUQ at this time, no noted hepatic splenic enlargement, R back pain, above the position of the flank. L side without pain. Ext: No edema, no tenderness, WWP Neuro: CN2-12 intact, normal gait, guarded from pain but otherwise normal. 5/5 strength in UE and LE Psych: Normal affect, AOx3 Labs: reviewed Imaging: Reviewed -CTA - without PE showing bilateral small pleural effusion and a pericardial effusion -TTE - normal EF, no valvular or wall motion abnormalities, however with small pericardial effusion with plethoric IVC Assessment: 33 yo woman 5 days s/p requiring 4u pRBCs, non-smoker, previously on OCPs without complications, with a family history significant for a maternal grandmother who of a fatal clot and mother with a recent DVT/PE who presented with 2 days of acute worsening SOB with RUQ and right back pain that is worse with breathing with stable anemia, no evidence of a PE, no evidence of HF with small bilateral pleural effusions and a pericardial effusion with c/f portal HTN c/f a clot within the hepatic circulation pending a complete abdominal US with doppler. SOB with RUQ pain -no hypoxemia -no evidence of HF -no evidence of PE -pending complete abdominal US with doppler for portal circulation clot r/o -pain control with percocet, and toradol -daily LFTs Anemia: Stable from prior -continue iron supplementation DVT ppx: start lovenox, will choose to fully anticoagulate her if a portal circulation clot is confirmed. Diet: regular Dispo: pending full evaluation and clinical improvement VS,Fishbone, I+O VS, Fishbone, I+O Laboratory Tests 01/15/19 12:52 Red Blood Count 3.88 L, Mean Corpuscular Volume 77.3 L, Mean Corpuscular Hemoglobin 23.7 L, Mean Corpuscular Hemoglobin Concent 30.7 L, Red Cell Distribution Width 21.2 H, Neutrophils (%) (Auto) 87.4 H, Lymphocytes (%) (Auto) 8.3 L, Monocytes (%) (Auto) 3.1, Eosinophils (%) (Auto) 0.0, Basophils (%) (Auto) 0.3, Neutrophils # (Auto) 12.2 H, Lymphocytes # (Auto) 1.2 L, Monocytes # (Auto) 0.4, Eosinophils # (Auto) 0.0, Basophils # (Auto) 0.0 01/16/19 05:50 Red Blood Count 3.94 L, Mean Corpuscular Volume 80.5, Mean Corpuscular Hemoglobin 23.9 L, Mean Corpuscular Hemoglobin Concent 29.7 L, Red Cell Distribution Width 21.7 H, Calcium Level 8.4 L Vital Signs Date Time Temp Pulse Resp B/P (MAP) Pulse Ox O2 Delivery O2 Flow Rate FiO2 01/16/19 08:00 97.0 55 20 139/78 (98) 98 01/16/19 00:00 2.0 01/15/19 12:55 Room Air I&O- Last 24 Hours up to 6 AM 01/16/19 06:00 Intake Total 0 ml Output Total 300 ml Balance -300 ml ERINN LAMAR MD Jan 16, 2019 11:09
[2019-01-16 11:23] LABS: AMORPHOUS SEDIMENT SMALL (NEGATIVE); APPEARANCE, URINE HAZY (CLEAR); BACTERIA, URINE AUTO NEGATIVE (NEGATIVE); BILIRUBIN, URINE AUTO NEGATIVE (NEGATIVE); BLOOD, URINE BLOOD 3+ (NEGATIVE); COLOR, URINE YELLOW (YELLOW); GLUCOSE, URINE (UA) AUTO NEGATIVE (NEGATIVE); KETONE, URINE AUTO NEGATIVE (NEGATIVE); LEUKOCYTE ESTERASE, URINE AUTO NEGATIVE (NEGATIVE); MUCUS, URINE SMALL (NEGATIVE); NITRITE, URINE AUTO NEGATIVE (NEGATIVE); PROTEIN, URINE AUTO NEGATIVE (NEGATIVE); RBC, URINE AUTO 3 /HPF (0-3); SPECIFIC GRAVITY URINE AUTO 1.008 (1.002-1.035); SQUAMOUS EPITHELIAL CELL UR AU 3 /HPF (0-6); UROBILINOGEN, URINE AUTO 0.2 mg/dL (0.0-2.0); WBC, URINE AUTO 5 /HPF (0-3)
[2019-01-16] MEDS: ENOXAPARIN 40 MG/0.4 ML SYRINGE (J1650) SC SCH (11:37)
[2019-01-16 11:42] VITALS: BP 125/59
[2019-01-16 16:15] VITALS: BP 157/76
[2019-01-16] MEDS ORDERED: DOCUSATE SODIUM 100 MG CAP PO PRN (17:15)
[2019-01-16] MEDS: FERROUS SULFATE 325MG TAB PO SCH (17:18)
[2019-01-16] MEDS: DOCUSATE SODIUM 100 MG CAP PO SCH (17:19)
[2019-01-16] MEDS: PRENATAL VITAMINS CHEWABLE TABLET PO SCH (18:05)
[2019-01-16 20:00] VITALS: BP 138/75
[2019-01-17] VITALS: BP 141/78
[2019-01-17] MEDS ORDERED: MOM 30ML SUSPENSION UDC PO ONE (02:15)
[2019-01-17] MEDS: PERCOCET 5MG/325MG TAB PO PRN (03:50)
[2019-01-17 04:00] VITALS: BP 148/81
[2019-01-17 05:32] LABS: HEMATOCRIT 30.7 % (36.0-47.0); HEMOGLOBIN 9.3 g/dl (12.0-15.5); MEAN CORPUSCULAR HEMOGLOBIN 23.5 pg (27.0-33.0); MEAN CORPUSCULAR HGB CONC 30.3 g/dl (32.0-36.5); MEAN CORPUSCULAR VOLUME 77.7 fl (80.0-96.0); PLATELET COUNT, AUTOMATED 255 10^3/uL (150-450); RED BLOOD COUNT 3.95 10^6/uL (4.00-5.40); WHITE BLOOD COUNT 6.6 10^3/uL (4.0-10.0)
[2019-01-17 05:48] LABS: BLOOD UREA NITROGEN 10 MG/DL (7-18); CALCIUM LEVEL 8.4 MG/DL (8.5-10.1); CARBON DIOXIDE LEVEL 25 MEQ/L (21-32); CHLORIDE LEVEL 108 MEQ/L (98-107); CREATININE FOR GFR 0.64 MG/DL (0.55-1.30); GLOMERULAR FILTRATION RATE > 60.0 (>60); GLUCOSE, FASTING 79 MG/DL (70-100); POTASSIUM SERUM 3.9 MEQ/L (3.5-5.1); SODIUM LEVEL 140 MEQ/L (136-145)
[2019-01-17 07:34] VITALS: BP 122/88
--- NOTE | 2019-01-17 07:58 | IPNPDOC ---
Text Note Date of Service The patient was seen on 01/17/19. NOTE Subjective: -Continues to have RUQ and R back pain with breathing -No chest pain, no palpitations, no LE pain or swelling, no dysuria 12 point ROS was reviewed and only the above mentioned were positive, but all other elements were negative. Objective: Vitals: see below, afebrile and hemodynamically stable General: Mild distress, morbidly obese HEENT: NCAT, anicteric, no significant pallor, PERRLA, EOMI Neck: no palpable thyromegaly, no JVD, no adenopathy Pulm: Speaking in full sentences, continues to take short breaths due to RUQ pain, CTAB no crackles or wheezing Cardiac: RRR, no mrg Abdomen: Tender upper abdomen, no noted hepatic or splenic enlargement. Mild R back pain. L back without pain. Ext: No edema, no tenderness, WWP Neuro: CN2-12 intact, 5/5 strength in UE and LE Psych: Normal affect, AOx3 Labs: reviewed Imaging: Reviewed -CTA - without PE showing bilateral small pleural effusion and a pericardial effusion -TTE - normal EF, no valvular or wall motion abnormalities, however with small pericardial effusion with plethoric IVC -Abdominal US with doppler - Pending read Assessment: 33 yo woman 5 days s/p requiring 4u pRBCs, non-smoker, previously on OCPs without complications, with a family history significant for a maternal grandmother who of a fatal clot and mother with a recent DVT/PE who presented with 2 days of acute worsening SOB with RUQ and right back pain that is worse with breathing with stable anemia, no evidence of a PE, no evidence of HF with small bilateral pleural effusions and a pericardial effusion with c/f portal HTN pending abdominal US read to r/o a clot within the portal circulation. SOB with RUQ pain -no hypoxemia -no evidence of HF -no evidence of PE -pending complete abdominal US with doppler for portal circulation clot r/o -pain control with percocet, DC toradol -daily LFTs Anemia: Stable from prior -continue iron supplementation DVT ppx: start lovenox, will choose to fully anticoagulate her if a portal circulation clot is confirmed. Diet: regular Dispo: pending abdominal US and clinical improvement VS,Fishbone, I+O VS, Fishbone, I+O Laboratory Tests 01/17/19 05:03 Red Blood Count 3.95 L, Mean Corpuscular Volume 77.7 L, Mean Corpuscular Hemoglobin 23.5 L, Mean Corpuscular Hemoglobin Concent 30.3 L, Red Cell Distribution Width 21.5 H, Calcium Level 8.4 L Vital Signs Date Time Temp Pulse Resp B/P (MAP) Pulse Ox O2 Delivery O2 Flow Rate FiO2 01/17/19 07:34 97.0 55 16 122/88 (99) 98 01/16/19 00:00 2.0 01/15/19 12:55 Room Air I&O- Last 24 Hours up to 6 AM 01/17/19 06:00 Intake Total 1440 ml Output Total 3200 ml Balance -1760 ml ERINN LAMAR MD Jan 17, 2019 07:58
[2019-01-17] MEDS: ENOXAPARIN 40 MG/0.4 ML SYRINGE (J1650) SC SCH (08:01)
[2019-01-17] MEDS: DOCUSATE SODIUM 100 MG CAP PO SCH (08:02)
[2019-01-17] MEDS: PRENATAL VITAMINS CHEWABLE TABLET PO SCH (08:02)
[2019-01-17] MEDS: FERROUS SULFATE 325MG TAB PO SCH (08:02)
--- NOTE | 2019-01-17 08:24 | REP ---
COMPLETE ABDOMINAL ULTRASOUND WITH VENOUS DOPPLER HEPATIC AND PORTAL VEINS: 01/16/2019. Clinical history: Evaluate for hepatic congestion, possible thrombus. Chest pain. Negative CT angiogram yesterday. Small pleural effusions. Small pericardial effusion. Comparison: CT angiogram chest 01/15/2019, CT abdomen pelvis 10/12/2016. Findings: Liver is homogeneous in echotexture. There is no hepatomegaly, focal hepatic mass nor intrahepatic biliary dilatation. Gallbladder is normally filled and it has a wall thickness of 1.4 mm with no stone, sludge or pericholecystic fluid. No sonographic Hernandez sign. Common duct 4.9 mm and normal. The visualized pancreas is unremarkable. Spleen measures 12.2 x 10.8 x 3.3 cm and is homogeneous. The splenic index of 393 is present, normal. The right kidney is 12.6 x 6.2 x 5.2 cm and the left kidney 11.3 x 4.8 x 6.8 cm. Neither shows cyst, stone or solid mass. No hydronephrosis. The aorta has a maximum diameter 2.2 cm proximally and not well seen due to bowel gas shadowing. I do note the technologist states the patient was unable to lie flat for this examination which was performed in upright position. She states labored breathing through much of the examination. Hepatic Doppler: Main portal vein shows velocity 40.7 cm/S with the SMV 31.4 cm/S and the splenic vein 36.4 cm/s. At the splenic hilum the splenic vein velocity is 16.8 cm/s. The blood flow in the portal system is toward the liver. There was no ascites. Main portal vein had a diameter of 12.1 mm, normal. The hepatic artery had velocity 98.9 cm/s, normal. The hepatic veins show blood flow toward the IVC, centrally it has a velocity of 30 cm/s, the right 32.1 cm/S, left 26.2 cm/S. Doppler wave forms of the hepatic veins show triphasic right, main and left. There is flow in the IVC to the right atrium. Impression: 1. I cannot confirm evidence for Budd Chiari syndrome at this time. No hepatic venous thrombosis evident. 2. Portal veins shows blood flow into the liver with appropriate velocities and main portal vein size is normal. 3. No hepatomegaly, focal lesion, ascites or intrahepatic biliary dilatation. 4. No gallstones. Gallbladder, pancreas, kidneys and spleen were all unremarkable. 5. I note the patient was unable to lay down for the examination and entire examination was conducted with the patient upright. I certainly appreciate the patient and technologist for their perseverance with this examination. Electronically Signed by Ryan Jenkins MD 01/17/2019 10:42 A
[2019-01-17] MEDS ORDERED: PRENATAL VITAMINS CHEWABLE TABLET PO SCH (09:00)
[2019-01-17] MEDS ORDERED: KETOROLAC 30 MG/ML VIAL (J1885) IV SCH (09:00)
[2019-01-17 11:18] VITALS: BP 119/79
--- NOTE | 2019-01-17 14:56 | HPE ---
DATE OF ADMISSION: 01/15/2019 PRIMARY CARE PROVIDER: Dr. Garza ATTENDING PHYSICIAN: Hospitalist group. CHIEF COMPLAINT: Shortness of breath. HISTORY: Judi Marx is a 33-year-old. She is status post primary section on 01/11/2019. She had a sudden onset yesterday of shortness of breath. Became worse today. It is right-sided. It is pleuritic. Varies with respirations. Discretely located to her right upper chest and underneath the right breast. She had a CT angiogram that showed no pulmonary embolism. She did have small pleural and pericardial effusion. She is being admitted for further evaluation. She has no past history of thromboembolic disease. Her past medical history is significant for some chronic pain problems. She has chronic fatigue syndrome, history of anemia, sacroiliac joint dysfunction, pelvic floor dysfunction related to first delivery. SURGICAL HISTORY: 1. Fissure repair. 2. Hernia repair. 3. Rectocele repair. FAMILY HISTORY: No history of venothromboembolism. SOCIAL HISTORY: Nonsmoker. She is . G2, P2. MEDICATIONS: - Percocet - vitamin - omeprazole 40 mg daily - ferrous sulfate ALLERGIES: Adhesive tape, CODEINE, HYDROCODONE, HYDROMORPHONE, MODAFINIL, and MORPHINE. REVIEW OF SYSTEMS: No fever, chills, hemoptysis, exertional chest pain, radiation of chest pain, or palpitations. PHYSICAL EXAMINATION: 126/69, pulse 86, respiratory rate is between 18-42, saturations 100%, 98.4 degrees. GENERAL APPEARANCE: She is visibly anxious. She is air swallowing and taking shallow, panting respirations with a normal oxygen saturation. Pupils equal, round, reactive to light. TMs and oropharynx benign. Thyroid mildly enlarged (). LUNGS: Clear bilaterally. Good air movement bilaterally. HEART: Regular rate and rhythm. No murmur. No rub. ABDOMEN: Soft, nontender. No masses. Trace peripheral edema. LABORATORY DATA: White count 13.9, hemoglobin 9.2, platelets 272. Electrolytes unremarkable. Troponin is undetectable. It should be noted that she was transfused 4 units of packed red blood cells January 11 and January 12. Her hemoglobin is 9.2. IMPRESSION: Pleuritic chest pain. Suspect pleurisy. I think there is also anxiety component. Pulmonary embolism not present on CT angiogram. I have discussed the case with Dr. Cali Parikh, principal quality engineer sales solutions associate [facility]. I have ordered an echocardiogram and have the results called to the onc-all hospitalist. I have ordered analgesics, including ketorolac 30 mg IV every 6 hours. If this is pleurisy should respond nicely to intravenous ketorolac. She does not look to have any hemodynamic compromise from the pericardial effusion, size of which is described as "small." 2. Recent state. Per [employer]IDE SAL[employer] MANAGER. Dr. Garza apparently is available if there are any obstetric-related questions. 3. Lobulated nodule, upper inner right breast. I found this on the radiology report after the patient was admitted. She will need to followup with Dr. Garza for this and rounding team tomorrow will need to make her aware of the need to followup on this abnormality. This was discussed with Dr. Castro today, to whom I have signed out this patient end of shift. Edited 01/17/2019 @ 1452 [facility]
[2019-01-17] MEDS: KETOROLAC TROMETHAMINE 10 MG TAB PO PRN ×2 (15:07→21:30)
[2019-01-17 15:52] VITALS: BP 154/74
[2019-01-17 20:00] VITALS: BP 149/67
[2019-01-18] VITALS: BP 119/57
[2019-01-18] MEDS: KETOROLAC TROMETHAMINE 10 MG TAB PO PRN ×2 (03:32→10:36)
[2019-01-18 04:00] VITALS: BP 141/65
[2019-01-18 05:33] LABS: HEMATOCRIT 30.1 % (36.0-47.0); HEMOGLOBIN 9.2 g/dl (12.0-15.5); MEAN CORPUSCULAR HEMOGLOBIN 23.7 pg (27.0-33.0); MEAN CORPUSCULAR HGB CONC 30.6 g/dl (32.0-36.5); MEAN CORPUSCULAR VOLUME 77.4 fl (80.0-96.0); PLATELET COUNT, AUTOMATED 258 10^3/uL (150-450); RED BLOOD COUNT 3.89 10^6/uL (4.00-5.40); WHITE BLOOD COUNT 8.6 10^3/uL (4.0-10.0)
[2019-01-18 05:54] LABS: BLOOD UREA NITROGEN 13 MG/DL (7-18); CALCIUM LEVEL 8.2 MG/DL (8.5-10.1); CARBON DIOXIDE LEVEL 24 MEQ/L (21-32); CHLORIDE LEVEL 109 MEQ/L (98-107); CREATININE FOR GFR 0.69 MG/DL (0.55-1.30); GLOMERULAR FILTRATION RATE > 60.0 (>60); GLUCOSE, FASTING 91 MG/DL (70-100); POTASSIUM SERUM 4.2 MEQ/L (3.5-5.1); SODIUM LEVEL 143 MEQ/L (136-145)
[2019-01-18] MEDS ORDERED: KETO10TAB PO (06:27)
--- NOTE | 2019-01-18 06:30 | DS.PDOC ---
Discharge Summary General Date of Admission Jan 15, 2019 at 12:25 Date of Discharge 01/18/2019 Attending Physician: ERINN LAMAR MD Discharge Summary PROCEDURES PERFORMED DURING STAY: None ADMITTING DIAGNOSES: 1. Dyspnea DISCHARGE DIAGNOSES: 1. Abdominal pain unspecified COMPLICATIONS/CHIEF COMPLAINT: SOB. HISTORY OF PRESENT ILLNESS: 33 yo woman 5 days s/p requiring 4u pRBCs, with a history of LUIS ANGEL, GERD, obesity, anemia, non-smoker, previously on OCPs without complications, with a family history significant for a maternal grandmother who of a fatal clot and mother with a recent DVT/PE who presented with 2 days of acute worsening SOB with RUQ and right back pain that is worse with breathing. HOSPITAL COURSE: Initial work up revealed known stable anemia to Hgb 9s, CTA PE protocol was with no evidence of a PE but noted small bilateral pleural effusions and a pericardial effusion, and a TTE showed a small pericardial effusion, a plethoric IVC and probable hepatic congestion with a normal EF, no valvular pathology or wall motion abnormalities, while LFTs and lipase were within normal limits. An abdominal ultrasound with doppler showed patent vessels without evidence for Budd Chiari syndrome, hepatic venous thrombosis evident, portal veins with blood flow into the liver with appropriate velocities and noromal size, no hepatomegaly, focal lesion, ascites or intrahepatic biliary dilatation, with no gallstones and normal appearing pancreas, kidneys and spleen. Clinically she continued to have right upper quadrant pain that was well controlled by Toradol and PRN Percocet and otherwise remained afebrile and hemodynamically stable. She is now being discharged home with close CRYSTAL SYRUP MAKER follow up and a few days of PRN toradol. She was otherwise continued on her home vitamins and iron supplementation. DISCHARGE MEDICATIONS: Please see below. ALLERGIES: Please see below. PHYSICAL EXAMINATION ON DISCHARGE: VITAL SIGNS: Please see below. General: Mild distress, morbidly obese HEENT: NCAT, anicteric, no significant pallor, PERRLA, EOMI, clear posterior oropharynx without erythema or exudates Neck: no palpable thyromegaly, JVD difficult to assess given habitus, no adenopathy Pulm: Speaking in full sentences, CTAB no crackles or wheezing Cardiac: RRR, no mrg Abdomen: Mildly tender RUQ, no hepatosplenomegaly, no flank pain today. Ext: No edema, no tenderness, WWP Neuro: CN2-12 intact, normal gait, 5/5 strength in UE and LE Psych: Normal affect, AOx3 LABORATORY DATA: Please see below. IMAGIN01/15/2019: CXR The chest is exposed at a lesser level of inspiration. No infiltrate is seen. Pleural angles are sharp. Pulmonary vasculature is not increased. Heart size is not felt to be enlarged. 01/15/2019: CTA PE protocol: There is no CT evidence of pulmonary embolism. There is no thoracic aortic aneurysm or dissection. The heart is normal in size. There is no mediastinal, hilar or chest wall lymphadenopathy. There are tiny pleural effusions bilaterally. There is a small pericardial effusion. No infiltrate is seen in either lung. Note is made of a lobulated oval nodule in the upper inner right breast which measures approximately 2.5 x 1.5 x 2.8 cm. Visualized upper abdominal structures are unremarkable. 01/15/2019: TTE 1. Normal left ventricle internal dimensions and wall thickness. Normal regional left ventricle (LV) wall motion and wall thickening. Normal LV systolic functi on. Left ventricular ejection fraction (LVEF) 60% by visual estimate. Normal LV diastolic function. 2. Very small pericardial effusion. No cardiac chamber collapse. No significant respiratory variation of intracardiac velocities. 3. Presence of left pleural effusion. 4. Appearance of normal right ventricle size and systolic function. 5. Normal appearing cardiac valve without functional abnormalities. 6. Inferior vena cava plethora. Suggestive of central venous pressure of at least 10 mmHg. Appearance of hepatic congestion. 01/16/2019: Abdominal ultrasound with doppler: Liver is homogeneous in echotexture. There is no hepatomegaly, focal hepatic mass nor intrahepatic biliary dilatation. Gallbladder is normally filled and it has a wall thickness of 1.4 mm with no stone, sludge or pericholecystic fluid. No sonographic Hernandez sign. Common duct 4.9 mm and normal. The visualized pancreas is unremarkable. Spleen measures 12.2 x 10.8 x 3.3 cm and is homogeneous. The splenic index of 393 is present, normal. The right kidney is 12.6 x 6.2 x 5.2 cm and the left kidney 11.3 x 4.8 x 6.8 cm. Neither shows cyst, stone or solid mass. No hydronephrosis. The aorta has a maximum diameter 2.2 cm proximally and not well seen due to bowel gas shadowing. I do note the technologist states the patient was unable to lie flat for this examination which was performed in upright position. She states labored breathing through much of the examination. Hepatic Doppler: Main portal vein shows velocity 40.7 cm/S with the SMV 31.4 cm/S and the splenic vein 36.4 cm/s. At the splenic hilum the splenic vein velocity is 16.8 cm/s. The blood flow in the portal system is toward the liver. There was no ascites. Main portal vein had a diameter of 12.1 mm, normal. The hepatic artery had velocity 98.9 cm/s, normal. The hepatic veins show blood flow toward the IVC, centrally it has a velocity of 30 cm/s, the right 32.1 cm/S, left 26.2 cm/S. Doppler wave forms of the hepatic veins show triphasic right, main and left. There is flow in the IVC to the right atrium. Impression: 1. I cannot confirm evidence for Budd Chiari syndrome at this time. No hepatic venous thrombosis evident. 2. Portal veins shows blood flow into the liver with appropriate velocities and main portal vein size is normal. 3. No hepatomegaly, focal lesion, ascites or intrahepatic biliary dilatation. 4. No gallstones. Gallbladder, pancreas, kidneys and spleen were all unremarkable. PROGNOSIS: Good ACTIVITY: As tolerated DIET: Regular DISCHARGE PLAN: Home with close CRYSTAL SYRUP MAKER follow up DISPOSITION: Home DISCHARGE INSTRUCTIONS: 1. I have prescribed a few day worth of pain medication. I would like you to fol low up with foot drill operator promptly for further investigation and management of the ongoing pain ITEMS TO FOLLOWUP ON ON OUTPATIENT: 1. RUQ pain - follow up with OB, no abdominal pathology identified at this time 2. follow up with OB DISCHARGE CONDITION: Stable TIME SPENT ON DISCHARGE: Greater than 30 minutes. Vital Signs/I&Os Vital Signs Date Time Temp Pulse Resp B/P (MAP) Pulse Ox O2 Delivery O2 Flow Rate FiO2 01/18/19 04:00 97.8 55 16 141/65 (90) 97 01/16/19 00:00 2.0 01/15/19 12:55 Room Air I&O- Last 24 Hours up to 6 AM 01/18/19 05:59 Intake Total 1770 ml Output Total 2925 ml Balance -1155 ml Laboratory Data Labs 24H Laboratory Tests 2 01/18/19 05:16: Anion Gap 10, Glomerular Filtration Rate > 60.0, Blood Urea Nitrogen 13, Creatinine 0.69, Sodium Level 143, Potassium Level 4.2, Chloride Level 109H, Carbon Dioxide Level 24, Calcium Level 8.2L 01/18/19 05:17: Nucleated Red Blood Cells % (auto) 0.0 CBC/BMP Laboratory Tests 01/18/19 05:16 Calcium Level 8.2 L 01/18/19 05:17 Red Blood Count 3.89 L, Mean Corpuscular Volume 77.4 L, Mean Corpuscular Hem oglobin 23.7 L, Mean Corpuscular Hemoglobin Concent 30.6 L, Red Cell Distribution Width 21.5 H Discharge Medications Scheduled Ferrous Sulfate (Ferrous Sulfate) 325 Mg Tab, 650 MG PO DAILY, (Reported) Omeprazole (Omeprazole) 40 Mg Capsule.dr, 40 MG PO DAILY, (Reported) PATIENT STATES THAT SHE HASN'T TAKEN SINCE SHE BECAME ANEMIC. Exo077/Iron Fum/Folic/Docusate ( 19 Tablet) 1 Each Tablet, 1 TAB PO DAILY, (Reported) Scheduled PRN Ketorolac Tromethamine (Ketorolac Tromethamine) 10 Mg Tablet, 10 MG PO Q6HP PRN for PAIN Oxycodone HCl/Acetaminophen (Oxycodone-Acetaminophen 5-325) 1 Each Tablet, 1 TAB PO TID PRN for PAIN, (Reported) Allergies Coded Allergies: hydrocodone (Verified Allergy, Severe, ANAPHYLAXIS, 01/11/19) adhesive (Verified Allergy, Intermediate, SURGICAL GLUE THAT SMELLS LIKE PINE - HIVES, 01/11/19) TAPE (Verified Allergy, Mild, RASH if on for a period of time, 01/11/19) codeine (Verified Allergy, Mild, HIVES, 01/11/19) hydromorphone (Verified Allergy, Mild, HIVES , 01/11/19) modafinil (Verified Allergy, Mild, HIVES, 01/11/19) morphine (Verified Allergy, Mild, HIVES, 01/11/19) ERINN LAMAR MD Jan 18, 2019 06:05
[2019-01-18 08:00] VITALS: BP 132/74
[2019-01-18] MEDS: ENOXAPARIN 40 MG/0.4 ML SYRINGE (J1650) SC SCH (09:00)
[2019-01-18] MEDS: FERROUS SULFATE 325MG TAB PO SCH (10:09)
[2019-01-18] MEDS: PRENATAL VITAMINS CHEWABLE TABLET PO SCH (10:09)
[2019-01-18] MEDS: DOCUSATE SODIUM 100 MG CAP PO SCH (10:09)
== END 2019-01-18 12:19 | disposition home or self-care (01) | DRG 566 ==
LOC: M ED 12:23 → M ED INP 12:24 → OBSVTOIN 12:25 → UNDOADMOB 15:29 → M ED INP 15:29 → M PCU 18:44
PROVIDERS: ADMIT Family Medicine; ATTEND Internal Medicine
DX: O99.89 Other specified diseases and conditions complicating pregnancy, childbirth and the puerperium (principal); E66.9 Obesity, unspecified; R09.1 Pleurisy; R53.82 Chronic fatigue, unspecified; R10.9 Unspecified abdominal pain; N63.12 Unspecified lump in the right breast, upper inner quadrant; G47.33 Obstructive sleep apnea (adult) (pediatric); O99.03 Anemia complicating the puerperium; O99.63 Diseases of the digestive system complicating the puerperium; K21.9 Gastro-esophageal reflux disease without esophagitis; Z88.8 Allergy status to other drugs, medicaments and biological substances; D64.9 Anemia, unspecified; Z79.891 Long term (current) use of opiate analgesic; Z88.5 Allergy status to narcotic agent; Z91.048 Other nonmedicinal substance allergy status; Z79.899 Other long term (current) drug therapy

== ENCOUNTER → 2019-02-09 | Outpatient (CLI) | payer BC ==
[~2019-02-09] MED LIST changes: +OMEP40CA97 PO
[2019-02-09 11:58] LABS: BASO % 0.4 % (0.0-1.0); HEMATOCRIT 40.2 % (36.0-47.0); HEMOGLOBIN 12.2 g/dl (12.0-15.5); LYMPH # 2.3 10^3/uL (1.5-5.0); LYMPH % 25.3 % (24.0-44.0); MEAN CORPUSCULAR HEMOGLOBIN 24.1 pg (27.0-33.0); MEAN CORPUSCULAR HGB CONC 30.3 g/dl (32.0-36.5); MEAN CORPUSCULAR VOLUME 79.3 fl (80.0-96.0); MONO # 0.5 10^3/uL (0.0-0.8); MONO % 4.9 % (0.0-5.0); NEUTROPHILS # 6.4 10^3/uL (1.5-8.5); NEUTROPHILS % 69.2 % (36.0-66.0); PLATELET COUNT, AUTOMATED 263 10^3/uL (150-450); RED BLOOD COUNT 5.07 10^6/uL (4.00-5.40); WHITE BLOOD COUNT 9.2 10^3/uL (4.0-10.0)
[2019-02-09 12:24] LABS: ALBUMIN 3.5 GM/DL (3.2-5.2); ALT/SGPT 31 U/L (12-78); BILIRUBIN,TOTAL 0.4 MG/DL (0.2-1.0); BLOOD UREA NITROGEN 13 MG/DL (7-18); CALCIUM LEVEL 8.8 MG/DL (8.5-10.1); CARBON DIOXIDE LEVEL 27 MEQ/L (21-32); CHLORIDE LEVEL 105 MEQ/L (98-107); CHOLESTEROL LEVEL 219 MG/DL (<200); CHOLESTEROL RISK RATIO 4.659 (<5); FERRITIN 33 NG/ML (8-252); GLOMERULAR FILTRATION RATE > 60.0 (>60); GLUCOSE, FASTING 89 MG/DL (70-100); HDL CHOLESTEROL 47 MG/DL (>40); IRON (FE) 50 UG/DL (50-170); LDL CHOLESTEROL 123 MG/DL (<100); NON-HDL-C 172 MG/DL; PERCENT SATURATION 11.9 % (13.2-45.0); POTASSIUM SERUM 4.3 MEQ/L (3.5-5.1); SODIUM LEVEL 141 MEQ/L (136-145); TOTAL IRON BINDING CAPACITY 419 UG/DL (250-450); TOTAL PROTEIN 6.9 GM/DL (6.4-8.2); TRIGLYCERIDES LEVEL 246 MG/DL (<150)
[2019-02-09 12:28] LABS: TOTAL 25(OH) VITAMIN D 16.2 NG/ML (30.0-100.0); VITAMIN B12 LEVEL 276 PG/ML
[2019-02-09 12:29] LABS: FOLATE 8.1 NG/ML
== END ==
LOC: M LAB 10:39
PROVIDERS: ATTEND Physician Assistant
DX: D64.9 Anemia, unspecified (principal); Z13.220 Encounter for screening for lipoid disorders

== ENCOUNTER → 2019-02-24 | Outpatient (CLI) | payer BC ==
--- NOTE | 2019-02-24 12:46 | REP ---
MRI lumbar spine: 02/24/2019. Indication: Low back pain. Comparison: 12/25/2015. Technique: Multiplanar short and long TR sequences of the lumbar spine were obtained without IV Gadolinium. Findings: L1/L2, L2/L3 and L3/L4: Unremarkable. L4/L5: Diffuse disc bulge and bilateral facet arthrosis are present with mild spinal canal and neural foraminal narrowing. L5/S1: There is partial sacralization of L5. There is no disc herniation or significant spinal canal / neural foraminal narrowing. Impression: Degenerative sequelae at L4/L5 without significant spinal canal / neural foraminal narrowing or nerve root impingement. Electronically Signed by Bhupendra Tavera DO 02/24/2019 12:37 P
== END ==
LOC: M RAD 09:39
PROVIDERS: ATTEND Family Medicine
DX: M54.5 Low back pain (principal)

== ENCOUNTER → 2019-03-12 | Outpatient (REF) | payer BC ==
[2019-03-12 12:52] LABS: C REACTIVE PROTEIN QUANTITATIV 3.02 MG/DL (0.00-0.30); RHEUMATOID FACTOR QUANT < 10.0 IU/ML (<15.0)
[2019-03-16 00:06] LABS: ANA (HEP2) Negative (.); CYCLIC CITRULLINATED PEPTIDE 5 units (0-19); EBV VIRAL CAPSID AG IgM <36.0 U/mL (0.0-35.9); Lyme Disease IgG/IgM Antibodie <0.91 ISR (0.00-0.90); Lyme Disease IgM Ab Quantitati <0.80 index (0.00-0.79); TISSUE TRANSGLUTAMINASE IgA <2 U/mL (0-3); TISSUE TRANSGLUTAMINASE IgG <2 U/mL (0-5); UNITSIGA FOR GLIADIN IGA 4 units (0-19); UNITSIGG FOR GLIADIN IGG 2 units (0-19)
== END ==
LOC: M LABDRAWP 11:25
PROVIDERS: ATTEND Family Medicine
DX: R19.5 Other fecal abnormalities (principal); N81.84 Pelvic muscle wasting; M46.1 Sacroiliitis, not elsewhere classified

== ENCOUNTER → 2019-05-14 | Outpatient (CLI) | payer BC ==
--- NOTE | 2019-05-14 11:19 | REP ---
Digital screening bilateral mammography with CAD, 3-D tomography, diagnostic left breast mammography, and focused left breast sonography: History: Baseline mammography. Asymptomatic. Positive family history of breast carcinoma. Mammographic findings: Routine views of each breast were obtained. Scattered fibroglandular elements are present. There is an asymmetric nodular density 17 mm in greatest diameter in the medial aspect of the left breast at approximately 9-10 o'clock position. This has somewhat to angular or rectangular well-defined margins. It is not this spiculated but rather is well-circumscribed. No other dominant density is seen in either breast. No spiculated area or microcalcification is seen. No worrisome skin change is observed. Diagnostic images of the left breast confirm the presence of this medial asymmetric nodular density. 3-D tomography shows no additional abnormality. Sonographic findings: Focused left breast sonography is performed from 9 o'clock to 10 o'clock. At 10 o'clock, 7 cm from the nipple, there is a 1.2 x 1.3 x 0.8 cm hypoechoic nodule which is felt to correspond with the mammographic opacity. This has smooth margins. Its long axis is parallel to the skin. It is compatible with but not specific for fibroadenoma. Impression: BIRADS 4: BI-RADS/ACR category 4 mammogram. Suspicious Abnormality - biopsy should be considered. BIRADS category 4 suspicious left breast imaging. Nodular opacity visible in the left breast medially mammographically and sonographically. Recommend ultrasound guided needle biopsy of the left breast nodule with marker clip placement and post clip placement mammography of the left breast. This mammogram was interpreted with the aid of an FDA-approved computer-aided detection system. The patient states she had a clinical breast exam in November 2018. The patient letter being requested is m4. This patient's estimated Tyrer-zick lifetime risk assessment for the breast cancer is 25.8 %. Enhanced screening in the form of annual bilateral breast MRI scanning is warranted. Bilateral breast MRI scanning is recommended annually, beginning 6 months from now. Electronically Signed by Mark Martinez MD 05/14/2019 06:35 P
== END ==
LOC: M RAD 08:05
PROVIDERS: ATTEND Physician Assistant
DX: Z12.31 Encounter for screening mammogram for malignant neoplasm of breast (principal)

== ENCOUNTER → 2019-05-25 | Outpatient (CLI) | payer BC ==
[~2019-05-25] MED LIST changes: +LIDOCAINE 1% MDV 20ML VIAL As Ordered ONE; +SODIUM BICARBONATE 8.4% INJ 50MEQ 50 ML VIAL As Ordered ONE
[2019-05-25 13:30] VITALS: BP 124/74
--- NOTE | 2019-05-25 19:51 | REP ---
Digital diagnostic unilateral left breast mammography with CAD: Two views. History: Marker clip placement mammography. The patient is status post ultrasound-guided needle biopsy procedure for a nodule in the left medial breast. Comparison mammography May 14, 2019. Findings: CC and true MLO views of the left breast demonstrate the needle biopsy marker clip just anterior to the the target nodular density. There is no evidence hematoma. Impression: Marker clip is seen in good position. Electronically Signed by Mark Martinez MD 05/25/2019 07:41 P
--- NOTE | 2019-05-28 08:24 | REP ---
ULTRASOUND GUIDED LEFT BREAST BIOPSY The procedure was performed under the direct supervision of Dr. Martinez The patient has a history of a 1.2 x 1.3 x 0.8 cm hypoechoic nodule seen on a previous ultrasound dated 05/14/2019. The risks and benefits of the procedure were explained to the patient and informed consent was obtained. The left breast nodule was localized using ultrasound guidance. The skin was prepped and draped in a sterile fashion. 1% Xylocaine was used as a local anesthetic. Using ultrasound guidance a 13-gauge suction assisted Mammotome needle was inserted and six core biopsy samples were obtained. A marker clip was placed at the biopsy site. The patient tolerated the procedure well and there were no immediate complications. After the appropriate amount of monitored convalescence the patient was discharged from the department. Electronically Signed by MARIA ESTHER Grover 05/27/2019 05:43 P Electronically Signed by Mark Martinez MD 05/28/2019 08:14 A
== END ==
LOC: M IRPRO 12:03
PROVIDERS: ATTEND Physician Assistant
DX: D24.2 Benign neoplasm of left breast (principal); Z88.5 Allergy status to narcotic agent; Z88.8 Allergy status to other drugs, medicaments and biological substances; Z91.048 Other nonmedicinal substance allergy status

== ENCOUNTER → 2019-07-28 | Outpatient (CLI) | payer BC ==
[~2019-07-28] MED LIST changes: -LIDOCAINE 1% MDV 20ML VIAL As Ordered ONE; -SODIUM BICARBONATE 8.4% INJ 50MEQ 50 ML VIAL As Ordered ONE
[2019-07-28 11:29] LABS: BASO % 0.5 % (0.0-1.0); HEMATOCRIT 40.1 % (36.0-47.0); HEMOGLOBIN 12.5 g/dl (12.0-15.5); LYMPH # 2.2 10^3/uL (1.5-5.0); LYMPH % 26.9 % (24.0-44.0); MEAN CORPUSCULAR HEMOGLOBIN 25.6 pg (27.0-33.0); MEAN CORPUSCULAR HGB CONC 31.2 g/dl (32.0-36.5); MEAN CORPUSCULAR VOLUME 82.2 fl (80.0-96.0); MONO # 0.5 10^3/uL (0.0-0.8); MONO % 5.5 % (0.0-5.0); NEUTROPHILS # 5.5 10^3/uL (1.5-8.5); NEUTROPHILS % 66.9 % (36.0-66.0); PLATELET COUNT, AUTOMATED 330 10^3/uL (150-450); RED BLOOD COUNT 4.88 10^6/uL (4.00-5.40); WHITE BLOOD COUNT 8.2 10^3/uL (4.0-10.0)
[2019-07-28 11:48] LABS: ALBUMIN 3.9 GM/DL (3.2-5.2); ALT/SGPT 22 U/L (12-78); BILIRUBIN,TOTAL 0.7 MG/DL (0.2-1.0); BLOOD UREA NITROGEN 13 MG/DL (7-18); CALCIUM LEVEL 9.3 MG/DL (8.5-10.1); CARBON DIOXIDE LEVEL 28 MEQ/L (21-32); CHLORIDE LEVEL 104 MEQ/L (98-107); CHOLESTEROL LEVEL 176 MG/DL (<200); CREATININE FOR GFR 0.79 MG/DL (0.55-1.30); GLOMERULAR FILTRATION RATE > 60.0 (>60); GLUCOSE, FASTING 114 MG/DL (70-100); HDL CHOLESTEROL 42 MG/DL (>40); LDL CHOLESTEROL 100 MG/DL (<100); NON-HDL-C 134 MG/DL; POTASSIUM SERUM 4.1 MEQ/L (3.5-5.1); SODIUM LEVEL 140 MEQ/L (136-145); TOTAL PROTEIN 7.5 GM/DL (6.4-8.2); TRIGLYCERIDES LEVEL 169 MG/DL (<150)
[2019-07-28 11:54] LABS: TOTAL 25(OH) VITAMIN D 23.9 NG/ML (30.0-100.0)
== END ==
LOC: M LAB 10:56
PROVIDERS: ATTEND Physician Assistant
DX: E78.5 Hyperlipidemia, unspecified (principal)

== ENCOUNTER → 2019-07-28 | Outpatient (CLI) | payer BC ==
[2019-07-28 11:29] LABS: HEMATOCRIT 39.4 % (36.0-47.0); HEMOGLOBIN 12.2 g/dl (12.0-15.5); MEAN CORPUSCULAR HEMOGLOBIN 25.3 pg (27.0-33.0); MEAN CORPUSCULAR VOLUME 81.7 fl (80.0-96.0); PLATELET COUNT, AUTOMATED 315 10^3/uL (150-450); RED BLOOD COUNT 4.82 10^6/uL (4.00-5.40); WHITE BLOOD COUNT 8.1 10^3/uL (4.0-10.0)
--- NOTE | 2019-07-28 15:27 | REP ---
Pelvic sonography: History: Abnormal uterine bleeding. Findings: Transabdominal and transvaginal scanning are performed. Uterine dimensions are normal measured at 8.3 x 3.4 x 5.4 cm. Endometrial echo is 0.5 cm thick and centrally placed. No focal uterine mass is seen. No free fluid is noted. Normal right ovary is seen with dimensions of 2.0 x 1.2 x 1.9 cm. Left ovary measures 2.1 x 1.9 x 1.9 cm and is also felt to be normal morphologically. Doppler flow is visualized in both ovaries. Impression: Normal pelvic sonography. Electronically Signed by Mark Martinez MD 07/28/2019 03:30 P
== END ==
LOC: M LAB 10:59
PROVIDERS: ATTEND Obstetrics & Gynecology
DX: N93.9 Abnormal uterine and vaginal bleeding, unspecified (principal)

== ENCOUNTER → 2019-12-23 | Outpatient (CLI) | payer BC ==
[~2019-12-23] MED LIST changes: +CYCL-707 PO; -CYCL10TA PO
== END ==
LOC: M PAIN 08:36
PROVIDERS: ATTEND Family Medicine
DX: M46.1 Sacroiliitis, not elsewhere classified (principal)

== ENCOUNTER → 2020-01-01 | Outpatient (CLI) | payer BC | LOC: M LABSMTC 08:28 | PROVIDERS: ATTEND Anesthesiology | DX: Z20.828 Contact with and (suspected) exposure to other viral communicable diseases (principal) | CPT/HCPCS: C9803; U0003 ==

== ENCOUNTER → 2020-01-06 | Outpatient (CLI) | payer BC ==
[~2020-01-06] MED LIST changes: +BUPIVACAINE HCL 0.25% 30ML VIAL As Ordered ONE; +ISOVUE-M 300 61% 15ML VIAL As Ordered ONE; +LIDOCAINE 1% SDV 30ML VIAL As Ordered ONE; +TRIAMCINOLONE ACETONIDE SUSP 40 MG/ML VIAL (J3301) As Ordered ONE
--- NOTE | 2020-01-21 09:37 | REP ---
FLUORO GUIDANCE: The images were reviewed with Dr. Martinez. The patient has a history of pain. The portable C-ARM was provided in the OR for Dr. Renny Da Silva for fluoroscopic guidance. Two intraoperative last image hold fluoro spot films were obtained for needle placement verification for bilateral SI joint injection. The films are on the [employer] system and are available for review. 38 seconds of fluoroscopy time was utilized for this procedure. AMARIS
== END ==
LOC: M PAIN 08:41
PROVIDERS: ATTEND Anesthesiology
DX: M46.1 Sacroiliitis, not elsewhere classified (principal)

== ENCOUNTER → 2020-01-24 | Outpatient (CLI) | payer BC ==
[~2020-01-24] MED LIST changes: -BUPIVACAINE HCL 0.25% 30ML VIAL As Ordered ONE; -ISOVUE-M 300 61% 15ML VIAL As Ordered ONE; -LIDOCAINE 1% SDV 30ML VIAL As Ordered ONE; -TRIAMCINOLONE ACETONIDE SUSP 40 MG/ML VIAL (J3301) As Ordered ONE
--- NOTE | 2020-01-26 10:41 | ECWPNPC ---
PATIENT NAME: HOLLIE SEXTON : 1985 GENDER: FEMALE VISIT DATE: 01/24/2020 DISCHARGE DATE: 01/24/20 1342 VISIT LOCKED DATE TIME: PHYSICIAN: MING HENDERSON RESOURCE: MING HENDERSON REASON FOR APPOINTMENT 1. POST ZHANE SIJ HISTORY OF PRESENT ILLNESS DEPRESSION SCREENING: PHQ-2 (2015 EDITION) LITTLE INTEREST OR PLEASURE IN DOING THINGS?NOT AT ALL FEELING DOWN, DEPRESSED, OR HOPELESS?NOT AT ALL TOTAL SCORE0 34-YEAR-OLD FEMALE IN FOR POST BILATERAL SIJ FOLLOW-UP. SHE RATES HER PAIN PREPROCEDURE AT A 4 OUT OF 10 AND AND POST PROCEDURE AT A 1-3 OUT OF 10. SHE FURTHER STATES THE PROCEDURE HELPED HER FOR APPROXIMATELY 10 DAYS. SHE RATES HER PAIN CURRENTLY AT A 4 OUT OF 10. SHE DESCRIBES HER PAIN ACHING, INTERMITTENT, SHARP, AND TENDER. GENERAL: -. FALL RISK SCREENING: SCREENING :ONE FALL WITHOUT INJURY IN THE PAST YEAR PAIN SCREENING: PATIENT HAS A COMPLAINT OF ACUTE OR CHRONIC PAIN :YES LOCATION OF PAIN:MID BACK, LOW BACK, LEFT HIP, RIGHT HIP INTENSITY OF PAIN (SCALE OF 1 TO 10):4 WHAT DOES YOUR PAIN FEEL LIKE:ACHING, INTERMITTENT, SHARP, TENDER DURATION:INTERMITTENT, AWAKENS FROM SLEEP PAIN IS INCREASED BY:ACTIVITIES PAIN IS DECREASED BY:OTHERS HEAT AND ICE HELP TO REDUCE A LITTLE PAIN. NURSING NOTE: -. PAIN CENTER INTAKE QUESTIONS: DO YOU HAVE A HISTORY OF MRSA? :NO DO YOU TAKE A BLOOD THINNERS? :NO DO YOU HAVE ANY BLEEDING DISORDERS? :NO ANY NEW NUMBNESS OR WEAKNESS IN YOUR LEGS OR ARMS? :NO ANY PACEMAKER,DEFIBRILLATOR, OR DORSAL COLUMN STIMULATOR? :NO DO YOU HAVE ANY RASHES OR OPEN SORES? :NO ARE YOU ALLERGIC TO IV DYE? :NO ARE YOU DIABETIC? :NO ANY NEW PROBLEMS WITH YOUR MEDICATIONS? :YES PATIENT WAS TOLD TO STOP MEDICATION THAT WAS GIVEN BY PROVIDER FROM HER NEUROLIGIST. SHE WAS TOLD TO TAKE NEEDED. HAVE YOU RECEIVED A VACCINE IN THE PAST 30 DAYS? :YES FLU SHOT DO YOU PLAN TO RECEIVE A VACCINE IN THE NEXT 21 DAYS? :NO DO YOU NEED ANY PRESCRIPTION? :NO DO YOU TAKE ANY IMMUNOSUPPRESSIVE MEDICATIONS? :NO IS THERE A CHANCE YOU COULD BE ? :NO ARE YOU BREAST FEEDING? :NO CURRENT MEDICATIONS TAKING METHYLPHENIDATE HCL ER 18 MG TABLET EXTENDED RELEASE (SCHEDULE II DRUG) TAKE TWO TABLETS BY MOUTH EVERY MORNING MAXIMUM DAILY DOSE 2 ORAL TAKING DULOXETINE HCL 60 MG CAPSULE DELAYED RELEASE PARTICLES TAKE ONE CAPSULE BY MOUTH IN THE EVENING ORAL TAKING MELOXICAM 15 MG TABLET 1 TABLET ORALLY ONCE A DAY TAKING VITAMIN D 25 MCG (1000 UT) TABLET 1 TABLET ORALLY ONCE A DAY TAKING IRON 325 (65 FE) MG TABLET 1 TABLET ORALLY ONCE A DAY TAKING GABAPENTIN 400 MG CAPSULE 1 CAPSULE ORALLY ONCE A DAY TAKING KETOCONAZOLE 2 % SHAMPOO 1 APPLICATION EXTERNALLY 2-3 TIMES PER WEEK SHAMPOO SCALP NOT-TAKING NORETHINDRONE 0.35 MG TABLET 1 TABLET ORALLY ONCE A DAY NOT-TAKING CLINDAMYCIN PHOSPHATE 1 % SWAB 1 APPLICATION EXTERNALLY TWICE DAILY TO ACNE PRONE AREAS ON FACE AND BACK NOT-TAKING MULTIVITAMIN ADULT - TABLET ORALLY NOT-TAKING PROVERA 10 MG TABLET 1 TABLET WITH FOOD ORALLY ONCE A DAY, NOTES: FOR ACUTE / HEAVY /PROLONGED MENSTRUATION. NOT-TAKING DEBLITANE 0.35 MG TABLET TAKE ONE TABLET BY MOUTH EVERY DAY ORAL , NOTES: DUPLICATE NOT-TAKING CONCERTA NOT-TAKING DICLOFENAC SODIUM 75 MG TABLET DELAYED RELEASE 1 TABLET WITH FOOD OR MILK ORALLY TWICE A DAY NOT-TAKING PROVERA 10 MG TABLET 1 TABLET WITH FOOD ORALLY ONCE A DAY MEDICATION LIST REVIEWED AND RECONCILED WITH THE PATIENT PAST MEDICAL HISTORY 4TH DEGREE VAGINAL TEAR FIBROMYALGIA ALLERGIES MORPHINE SULFATE: HIVES - ALLERGY VICODIN: ANAPHYLAXIS - ALLERGY DILAUDID: HIVES - ALLERGY MODAFINIL: HIVES - ALLERGY SURGICAL HISTORY SURGERY ON RIGHT ARM X 4 4TH DEGREE VAGINAL TEAR REPAIR AFTER CHILD WISDOM REMOVAL HERNIA REPAIR FAMILY HISTORY FATHER: ALIVE, TESTICULAR CANCER,, DIVERTICULITIS MOTHER: ALIVE, BREAST CANCER,IBS SIBLINGS: ALIVE, DM,ANXIETY 1 SISTER(S) . 1 SON(S) - HEALTHY. UNCLE- SKIN CANCER. SOCIAL HISTORY GENERAL: TOBACCO USE ARE YOU A: NEVER SMOKER LATEX QUESTIONNAIRE LATEX ALLERGY : HAVE YOU EVER DEVELOPED ANY TYPE OF REACTION AFTER HANDLING LATEX PRODUCTS SUCH RUBBER GLOVES, CONDOMS, DIAPHRAGMS, BALLOONS, SOCKS, OR UNDERWEAR?NO LATEX ALLERGY : HAVE YOU EVER DEVELOPED ANY TYPE OF REACTION DURING OR AFTER DENTAL APPOINTMENT, VAGINAL/RECTAL EXAMINATION, SURGICAL PROCEDURE, OR ANY OTHER EXPOSURE?NO LATEX RISK : HAVE YOU EVER HAD ANY DIFFICULTY BREATHING OR HIVES AFTER EATING OR HANDLING ANY FRUITS, OR VEGETABLES; SUCH KIWI, BANANAS, STONE FRUITS, OR CHESTNUTSNO LATEX RISK : DO YOU HAVE A PREVIOUS PERSONAL HISTORY OF MORE THAN NINE SURGERIES, SPINA BIFIDA, OR REPEATED CATHERIZATIONS? NO LATEX RISK : ARE YOU FREQUENTLY EXPOSED TO LATEX PRODUCTS IN YOUR OCCUPATION?NO DATE ASKED : 01/24/2020 ALCOHOL SCREENING DID YOU HAVE A DRINK CONTAINING ALCOHOL IN THE PAST YEAR?YES HOW OFTEN DID YOU HAVE A DRINK CONTAINING ALCOHOL IN THE PAST YEAR?MONTHLY OR LESS (1 POINT) POINTS1 INTERPRETATIONNEGATIVE RECREATIONAL DRUG USE DRUG USE?NO CAFFEINE CAFFEINE USE?NO LANGUAGE [place]. 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 MARITAL STATUS: . OTHERS AT HOME: SPOUSE, CHILD. PAIN CLINIC PFS, CLERGY, PUBLIC HEALTH REFERRALS HAS THE PATIENT BEEN EDUCATED REGARDING HIS/HER PLAN OF CARE?YES HAS THE PATIENT BEEN EDUCATED REGARDING PAIN, THE RISK FOR PAIN, THE IMPORTANCE OF EFFECTIVE PAIN MANAGEMENT, AND THE PAIN ASSESSMENT PROCESS?YES ADVANCE DIRECTIVE ADVANCE DIRECTIVE DISCUSSED WITH PATIENT:YES CB THE 3RD HOSPITALIZATION/MAJOR DIAGNOSTIC PROCEDURE CHILD RIGHT ARM REPAIR COMPOUND FRACTURE REVIEW OF SYSTEMS CONSTITUTIONAL: ANY RECENT FEVER NO . CHILLS NO . WEIGHT CHANGE OF UNKNOWN REASONS NO . GASTROENTEROLOGY: NEW UNEXPLAINABLE CHANGES IN BOWEL CONTROL NO . CONSTIPATION NO . GENITOURINARY: ANY NEW CHANGE IN BLADDER CONTROL? NO . NEUROLOGY: NEW ONSET DIZZINESS OR NEUROLOGICAL CHANGES NOT MENTIONED NO . NEW NUMBNESS OR PAIN PATTERNS NOT MENTIONED AND PERTINENT TO TODAY'S VISIT NO . CARDIOLOGY: NEW CHEST PRESSURE NO . NEW CHEST PAIN NO . RESPIRATORY: UNEXPLAINABLE COUGH NO . NEW SHORTNESS OF BREATH NO . VITAL SIGNS WT 206.2 LBS, HT 66 IN, BMI 33.28 INDEX, BP 119/58 MM HG, HR 84 /MIN, RR 18 /MIN, TEMP 97.4 F, OXYGEN SAT % 97%, REVIEWED BY: GIULIANO PAULA CMA. EXAMINATION GENERAL EXAMINATION: GENERALNO ACUTE DISTRESS, WELL NOURISHED AND HYDRATED. PSYCHAPPROPRIATE MOOD AND AFFECT . LUNGS:CLEAR TO AUSCULTATION BILATERALLY, NO WHEEZES, RHONCHI, RALES. HEART:NO MURMURS, REGULAR RATE AND RHYTHM. ASSESSMENTS SACROILIITIS, NOT ELSEWHERE CLASSIFIED - M46.1 (PRIMARY) TREATMENT SACROILIITIS, NOT ELSEWHERE CLASSIFIED STOP MELOXICAM TABLET, 15 MG, 1 TABLET, ORALLY, ONCE A DAY NOTES: BILATERAL SIJ. CLINICAL NOTES: 34-YEAR-OLD FEMALE IN FOR POST BILATERAL SIJ FOLLOW-UP. GIVEN PRESENTING SYMPTOMS AND RESULTS OF PHYSICAL EXAMINATION WILL REQUEST A REPEAT BILATERAL SIJ. WE WILL INCREASE DICLOFENAC TO TWICE A DAY DOSING WITH FOLLOW-UP AFTER PROCEDURE. PATIENT HAS EXPRESSED UNDERSTANDING OF AND WAS IN AGREEMENT WITH TREATMENT PLAN. GIVEN TIME TO ASK QUESTIONS AND EXPRESS CONCERNS. PREVENTIVE MEDICINE PAIN CLINIC TEACHING: PROCEDURE TEACHING REVIEWED INFORMATION ON SACROILIAC JOINT INJECTION PROCEDURE WITH PATIENT. ALSO REVIEWED PRE-PROCEDURE INSTRUCTIONS. PATIENT VERBALIZED AN UNDERSTANDING. STEWART GIBBS 01/24/2020 1:42:26 PM > . PROCEDURE CODES FA211 ESTABILISHED PATIENT [facility] CHARGE DISPOSITION & COMMUNICATION FOLLOW UP POSTPROCEDURE (REASON: BILATERAL SIJ) ELECTRONICALLY SIGNED BY ANDREAS SHOEMAKER ON 01/26/2020 AT 10:29 AM EDT DISCLAIMER : THIS IS A VISIT SUMMARY EXTRACTED FROM THE [employer] CHART. IT IS NOT A COPY OF THE [employer] PROGRESS NOTE. AMARIS
== END ==
LOC: M PAIN 13:00
PROVIDERS: ATTEND Family Medicine
DX: M46.1 Sacroiliitis, not elsewhere classified (principal); M79.7 Fibromyalgia; Z88.5 Allergy status to narcotic agent; Z88.8 Allergy status to other drugs, medicaments and biological substances; Z79.899 Other long term (current) drug therapy

== ENCOUNTER → 2020-02-07 | Outpatient (REF) | payer BC | LOC: M LAB REF 16:53 | PROVIDERS: ATTEND Physician Assistant | DX: L05.01 Pilonidal cyst with abscess (principal) ==

== ENCOUNTER → 2020-03-08 | Outpatient (CLI) | payer BC | LOC: M LABSMTC 13:36 | PROVIDERS: ATTEND Anesthesiology | DX: Z01.812 Encounter for preprocedural laboratory examination (principal); Z20.828 Contact with and (suspected) exposure to other viral communicable diseases ==

== ENCOUNTER → 2020-03-13 | Outpatient (CLI) | payer BC ==
[~2020-03-13] MED LIST changes: +BUPIVACAINE HCL 0.25% 30ML VIAL As Ordered ONE; +ISOVUE-M 300 61% 15ML VIAL As Ordered ONE; +LIDOCAINE 1% SDV 30ML VIAL As Ordered ONE; +TRIAMCINOLONE ACETONIDE SUSP 40 MG/ML VIAL (J3301) As Ordered ONE; +diazePAM 5 MG TAB As Ordered ONE; +oxyCODONE 5MG TAB As Ordered ONE
--- NOTE | 2020-03-13 10:42 | REP ---
INDICATION: BILATERAL SIJ. COMPARISON: 01/06/2020. TECHNIQUE: Multiple C-arm views sacroiliac joints performed. FINDINGS: A needle overlies each sacroiliac joint and a small amount of contrast is injected. IMPRESSION: 53 seconds fluoroscopy time utilized. <Electronically signed by Niels Norman > 03/13/20 1036
--- NOTE | 2020-03-23 04:37 | ECWPNPC ---
PATIENT NAME: HOLLIE SEXTON : 1985 GENDER: FEMALE VISIT DATE: 03/13/2020 DISCHARGE DATE: 03/13/20 1037 VISIT LOCKED DATE TIME: PHYSICIAN: ION CARIAS MD RESOURCE: ION CARIAS MD REASON FOR APPOINTMENT 1. BILATERAL SIJ 2. COVID BOOKED 03/08 @1300 HISTORY OF PRESENT ILLNESS GENERAL: -. FALL RISK SCREENING: SCREENING :ONE FALL WITHOUT INJURY IN THE PAST YEAR PAIN SCREENING: PATIENT HAS A COMPLAINT OF ACUTE OR CHRONIC PAIN :YES LOCATION OF PAIN:LOW BACK, LEG(S) INTENSITY OF PAIN (SCALE OF 1 TO 10):4 WHAT DOES YOUR PAIN FEEL LIKE:ACHING, SHOOTING DURATION:INTERMITTENT PAIN IS INCREASED BY:ACTIVITIES, PROLONGED STANDING, OTHERS PROLONGED SITTING, WALKING PAIN IS DECREASED BY: NO RELIEF AT THIS TIME NURSING NOTE: -. PAIN CENTER INTAKE QUESTIONS: DO YOU HAVE A HISTORY OF MRSA? :NO DO YOU TAKE A BLOOD THINNERS? :NO DO YOU HAVE ANY BLEEDING DISORDERS? :NO ANY NEW NUMBNESS OR WEAKNESS IN YOUR LEGS OR ARMS? :NO ANY PACEMAKER,DEFIBRILLATOR, OR DORSAL COLUMN STIMULATOR? :NO DO YOU HAVE ANY RASHES OR OPEN SORES? :NO ARE YOU ALLERGIC TO IV DYE? :NO ARE YOU DIABETIC? :NO ANY NEW PROBLEMS WITH YOUR MEDICATIONS? :NO HAVE YOU RECEIVED A VACCINE IN THE PAST 30 DAYS? :NO DO YOU PLAN TO RECEIVE A VACCINE IN THE NEXT 21 DAYS? :NO DO YOU TAKE ANY IMMUNOSUPPRESSIVE MEDICATIONS? :NO ANY HISTORY OF SEIZURES? :NO ANY HISTORY OF CARDIAC ISSUES OR EVENTS? :NO DO YOU HAVE SLEEP APNEA? :YES POSITIONAL DO YOU WEAR A CPAP?NO ANY RECENT HEAD INJURY? :NO DO YOU HAVE ANY NEW INFECTIONS? :NO IS THERE A CHANCE YOU COULD BE ? :NO ARE YOU BREAST FEEDING? :NO WHEN DID YOU LAST EAT? : 03/12/202199 WHEN DID YOU LAST DRINK? : 03/12/202199 WHAT DID YOU LAST DRINK? : [place] NAME OF PERSON DRIVING YOU HOME? : CLARICE CASTLE (FATHER) DO YOU HAVE ANY OTHER QUESTIONS OR CONCERNS? : - CURRENT MEDICATIONS TAKING METHYLPHENIDATE HCL ER 18 MG TABLET EXTENDED RELEASE (SCHEDULE II DRUG) TAKE TWO TABLETS BY MOUTH EVERY MORNING MAXIMUM DAILY DOSE 2 ORAL , NOTES: 03/12/20 1100 TAKING DULOXETINE HCL 60 MG CAPSULE DELAYED RELEASE PARTICLES TAKE ONE CAPSULE BY MOUTH IN THE EVENING ORAL , NOTES: 03/12/20 1100 TAKING VITAMIN D 25 MCG (1000 UT) TABLET 1 TABLET ORALLY ONCE A DAY, NOTES: 03/12/201099 TAKING IRON 325 (65 FE) MG TABLET 1 TABLET ORALLY ONCE A DAY, NOTES: 03/12/201099 TAKING GABAPENTIN 400 MG CAPSULE 1 CAPSULE ORALLY ONCE A DAY, NOTES: 03/12/20 1100 TAKING KETOCONAZOLE 2 % SHAMPOO 1 APPLICATION EXTERNALLY 2-3 TIMES PER WEEK SHAMPOO SCALP, NOTES: NONE RECENT NOT-TAKING NORETHINDRONE 0.35 MG TABLET 1 TABLET ORALLY ONCE A DAY NOT-TAKING CLINDAMYCIN PHOSPHATE 1 % SWAB 1 APPLICATION EXTERNALLY TWICE DAILY TO ACNE PRONE AREAS ON FACE AND BACK NOT-TAKING MULTIVITAMIN ADULT - TABLET ORALLY NOT-TAKING PROVERA 10 MG TABLET 1 TABLET WITH FOOD ORALLY ONCE A DAY, NOTES: FOR ACUTE / HEAVY /PROLONGED MENSTRUATION. NOT-TAKING DEBLITANE 0.35 MG TABLET TAKE ONE TABLET BY MOUTH EVERY DAY ORAL , NOTES: DUPLICATE NOT-TAKING CONCERTA NOT-TAKING DICLOFENAC SODIUM 75 MG TABLET DELAYED RELEASE 1 TABLET WITH FOOD OR MILK ORALLY TWICE A DAY NOT-TAKING PROVERA 10 MG TABLET 1 TABLET WITH FOOD ORALLY ONCE A DAY MEDICATION LIST REVIEWED AND RECONCILED WITH THE PATIENT PAST MEDICAL HISTORY 4TH DEGREE VAGINAL TEAR FIBROMYALGIA ALLERGIES MORPHINE SULFATE: HIVES - ALLERGY VICODIN: ANAPHYLAXIS - ALLERGY DILAUDID: HIVES - ALLERGY MODAFINIL: HIVES - ALLERGY SURGICAL HISTORY SURGERY ON RIGHT ARM X 4 4TH DEGREE VAGINAL TEAR REPAIR AFTER CHILD WISDOM REMOVAL HERNIA REPAIR FAMILY HISTORY FATHER: ALIVE, TESTICULAR CANCER,, DIVERTICULITIS MOTHER: ALIVE, BREAST CANCER,IBS SIBLINGS: ALIVE, DM,ANXIETY 1 SISTER(S) . 1 SON(S) - HEALTHY. UNCLE- SKIN CANCER. SOCIAL HISTORY GENERAL: TOBACCO USE ARE YOU A: NEVER SMOKER LATEX QUESTIONNAIRE LATEX ALLERGY : HAVE YOU EVER DEVELOPED ANY TYPE OF REACTION AFTER HANDLING LATEX PRODUCTS SUCH RUBBER GLOVES, CONDOMS, DIAPHRAGMS, BALLOONS, SOCKS, OR UNDERWEAR?NO LATEX ALLERGY : HAVE YOU EVER DEVELOPED ANY TYPE OF REACTION DURING OR AFTER DENTAL APPOINTMENT, VAGINAL/RECTAL EXAMINATION, SURGICAL PROCEDURE, OR ANY OTHER EXPOSURE?NO LATEX RISK : HAVE YOU EVER HAD ANY DIFFICULTY BREATHING OR HIVES AFTER EATING OR HANDLING ANY FRUITS, OR VEGETABLES; SUCH KIWI, BANANAS, STONE FRUITS, OR CHESTNUTSNO LATEX RISK : DO YOU HAVE A PREVIOUS PERSONAL HISTORY OF MORE THAN NINE SURGERIES, SPINA BIFIDA, OR REPEATED CATHERIZATIONS? NO LATEX RISK : ARE YOU FREQUENTLY EXPOSED TO LATEX PRODUCTS IN YOUR OCCUPATION?NO DATE ASKED : 01/24/2020 ALCOHOL SCREENING DID YOU HAVE A DRINK CONTAINING ALCOHOL IN THE PAST YEAR?YES HOW OFTEN DID YOU HAVE A DRINK CONTAINING ALCOHOL IN THE PAST YEAR?MONTHLY OR LESS (1 POINT) POINTS1 INTERPRETATIONNEGATIVE RECREATIONAL DRUG USE DRUG USE?NO CAFFEINE CAFFEINE USE?NO LANGUAGE UPPER SORBIAN. 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 MARITAL STATUS: . OTHERS AT HOME: SPOUSE, CHILD. PAIN CLINIC PFS, CLERGY, PUBLIC HEALTH REFERRALS HAS THE PATIENT BEEN EDUCATED REGARDING HIS/HER PLAN OF CARE?YES HAS THE PATIENT BEEN EDUCATED REGARDING PAIN, THE RISK FOR PAIN, THE IMPORTANCE OF EFFECTIVE PAIN MANAGEMENT, AND THE PAIN ASSESSMENT PROCESS?YES ADVANCE DIRECTIVE ADVANCE DIRECTIVE DISCUSSED WITH PATIENT:YES HCP - CB () HOSPITALIZATION/MAJOR DIAGNOSTIC PROCEDURE CHILD RIGHT ARM REPAIR COMPOUND FRACTURE VITAL SIGNS WT 209.8 LBS, HT 66 IN, BMI 33.86 INDEX, BP 99/58 MM HG, HR 90 /MIN, RR 18 /MIN, TEMP 97.1 F, OXYGEN SAT % 96%, SAFE IN ENV? (Y/N) Y, NA INITIALS AW 0834, REVIEWED BY: JSJ. SAI RN. EXAMINATION GENERAL EXAMINATION: THE PATIENT IS ALERT, ORIENTED TIMES THREE AND COOPERATIVE. HEART SHOWS REGULAR RHYTHM, NO MURMURS AND NO GALLOPS. LUNGS ARE CLEAR TO AUSCULTATION. ASSESSMENTS SACROILIITIS, NOT ELSEWHERE CLASSIFIED - M46.1 (PRIMARY) SACROILIAC JOINT DYSFUNCTION - M53.3 TREATMENT SACROILIITIS, NOT ELSEWHERE CLASSIFIED [facility] FLUORO GUIDANCE (PAIN)[id number] MEDICATION: VALIUM TAB 5MG ORALLY (DIAZEPAM)STEWART GIBBS 03/13/2020 9:09:10 AM > LOT: [id number], EXP: 11/08. SCOTTY FLORES 03/13/2020 9:13:03 AM > VERIIFIED VALIUM STEWART GIBBS 03/13/2020 9:14:58 AM > ADMINISTERED MEDICATION: OXYCODONE HCL TAB 5MG ORALLY STEWART GIBBS 03/13/2020 9:09:44 AM > LOT: [id number], EXP: 05/2021 SCOTTY FLORES 03/13/2020 9:13:52 AM > VERIFIED OXYCODONE STEWART GIBBS 03/13/2020 9:15:22 AM > ADMINISTERED PROCEDURES PAIN NURSING RECORD PRE-PROCEDURE IV SITE N/A, PRE-PROCEDURE ORAL MEDICATIONS VALIUM 5 MG & OXYCODONE 5 MG PROCEDURE IN ROOM 0935, PHYSICIAN IN ROOM 0955, START 0959, FINISH 1012, PHYSICIAN OUT OF ROOM 1015, OUT OF ROOM 1022, STEROID KENALOG, O2 RA, ECG NORMAL SINUS, PATIENT SHIELDED YES, SAFETY STRAP YES, PREP CHLOROPREP BY Fiordaliza FLORES, RN, IV INFUSED N/A, DRESSING TEGADERM BY DR. CARIAS LOC: STEWART GIBBS 03/13/2020 10:00:06 AM > , 1. ALERT, ORIENTED RESP: STEWART GIBBS 03/13/2020 10:00:10 AM > , 1. REGULAR, NO DYSPNEA COLOR: STEWART GIBBS 03/13/2020 10:00:14 AM > , 1. PINK SKIN: STEWART GIBBS 03/13/2020 10:00:18 AM > , 1. WARM, DRY POSITION: STEWART GIBBS 03/13/2020 10:00:22 AM > , 1. PRONE VITALS: STEWART GIBBS 03/13/2020 9:37:00 AM > 118/72, 62, 18, 99% STEWART GIBBS 03/13/2020 9:45:53 AM > 116/70, 67, 18, 96% STEWART GIBBS 03/13/2020 9:59:37 AM > 118/66, 65, 16, 96% STEWART GIBBS 03/13/2020 10:14:58 AM > 117/77, 65, 16, 96% STEWART GIBBS 03/13/2020 10:27:51 AM > 102/63, 63, 16, 99% DISCHARGE: POST PAIN 2, DRESSING SITE DRY AND INTACT, IV N/A, GAIT STEADY, TEACHING COMPLETED, PATIENT ACKNOWLEDGES UNDERSTANDING YES, PATIENT DISCHARGED AT 1035 PN SI PRE PROCEDURE DIAGNOSIS SACROILIITIS, SACROILIAC JOINT DYSFUNCTION POST PROCEDURE DIAGNOSIS SACROILIITIS, SACROILIAC JOINT DYSFUNCTION PROCEDURE BILATERAL SACROILIAC JOINT BLOCK SURGEON DR. ION CARIAS SPRINKLER HELPER NONE ANESTHESIA LOCAL PRE PROCEDURE NOTE THE PATIENT WITH HISTORY OF CHRONIC LOW BACK PAIN. I EVALUATED THE PATIENT AND REVIEWED THE CHART. I WENT OVER THE RISKS, ALTERNATIVES, AND BENEFITS ASSOCIATED WITH THIS PROCEDURE. I DISCUSSED THAT THE USE OF STEROIDS MAY CONTRIBUTE TO IMMUNOSUPPRESSION OF THE PATIENT'S BODY AGAINST INFECTIONS SUCH COVID-19. THE PATIENT IS AWARE OF THE POTENTIAL COMPLICATIONS ASSOCIATED WITH THIS VIRUS, INCLUDING, BUT NOT LIMITED TO, . THE PATIENT WOULD LIKE TO PROCEED AND GAVE CONSENT TO PERFORM THE PROCEDURE. THE PATIENT DENIES UNEXPLAINABLE WEIGHT LOSS, FEVER, CHILLS, OR NEW CHANGES IN URINARY OR BOWEL CONTROL. THE PATIENT IS COVID-19 NEGATIVE DESCRIPTION OF PROCEDURE THE PATIENT WAS BROUGHT TO THE PROCEDURE ROOM AND PLACED IN THE PRONE POSITION. THE LUMBOSACRAL AREA WAS CLEANED WITH CHLORAPREP SOLUTION AND DRAPED ASEPTICALLY. THE PROCEDURE WAS DONE UNDER STERILE CONDITIONS. A TIMEOUT WAS PERFORMED WHERE LATERALITY AND THE SITE OF THE PROCEDURE WERE CHECKED AND CONFIRMED WITH EVERYONE IN THE ROOM. UNDER FLUOROSCOPIC GUIDANCE, THE TARGET POINT WAS SELECTED AT THE LOWER BORDER OF THE RIGHT AND LEFT SACROILIAC JOINT. TARGET POINT WAS SELECTED AFTER MEDIAL ROTATION AND TILT OF THE MAGNIFIER OR THE C-ARM. I CONFIRMED AGAIN WITH EVERYONE IN THE ROOM THE LATERALITY OF THE TARGET AT 0959. LIDOCAINE 0.5% WAS USED TO NUMB THE SKIN AND THE SUBCUTANEOUS TISSUE BELOW IT. SPINAL NEEDLES, 22-GAUGE, WERE ADVANCED UNDER FLUOROSCOPIC GUIDANCE AND FOLLOWING PATIENT FEEDBACK UNTIL THE TARGETS WERE TOUCHED. THE POSITION OF THE NEEDLES WAS VERIFIED WITH AP AND OBLIQUE VIEWS. AFTER PROPER POSITION OF THE NEEDLES WAS ACHIEVED, ISOVUE-M DYE 30%, 0.1 ML, WAS INJECTED SHOWING ADEQUATE SPREAD OF THE DYE. KENALOG 40 MG WAS INJECTED AT EACH SITE. THEN, A SOLUTION OF 3.0 ML OF BUPIVACAINE 0.125% WAS USED TO FLUSH EACH NEEDLE. THE MEDICATIONS WERE VERIFIED WITH THE NURSE. THERE WAS NO EVIDENCE OF BLOOD, PARESTHESIA OR CEREBROSPINAL FLUID DURING THE PROCEDURE. THE PATIENT WAS SENT TO THE RECOVERY ROOM. THE PATIENT WAS MOVING THE EXTREMITIES AND DOING WELL. THERE WERE NO COMPLICATIONS DURING THE PROCEDURE. ESTIMATED BLOOD LOSS WAS LESS THAN 5 ML. FLUOROSCOPIC TIME WAS 52 SECONDS. POST PROCEDURE NOTE DEPENDING ON THE RESULTS, CONSIDER A GANGLION IMPAR BLOCK. THE PROCEDURE DONE WAS DISCUSSED WITH THE PATIENT. THE PATIENT WILL BE SEEN IN A FOLLOW UP IN THE NEXT FEW WEEKS. I AM LOOKING FOR LONG LASTING PAIN RELIEF FOR THE PATIENT WITH THIS INTERVENTION. INSTRUCTIONS WERE GIVEN, QUESTIONS WERE ANSWERED, AND THE PATIENT EXPRESSED UNDERSTANDING AND AGREES WITH THE PLAN. I, AD RODRIGUES, DOCUMENTED THE ABOVE INFORMATION ACTING A SCRIBE FOR DR. CARIAS. I HAVE REVIEWED THE ABOVE DOCUMENT, WRITTEN BY AD RODRIGUES, MUSIC LIBRARIAN, AND I VERIFY THAT IT IS ACCURATE PROCEDURE CODES 48655 INJECT SACROILIAC JOINT, MODIFIERS: 50 DISPOSITION & COMMUNICATION FOLLOW UP FOLLOW UP WITH [employer] MAIL DRIVER (REASON: POST BILATERAL SIJ) ELECTRONICALLY SIGNED BY ION CARIAS MD, ON 03/22/2020 AT 09:17 AM EST DISCLAIMER : THIS IS A VISIT SUMMARY EXTRACTED FROM THE [employer] CHART. IT IS NOT A COPY OF THE [employer] PROGRESS NOTE. AMARIS
== END ==
LOC: M PAIN 08:30
PROVIDERS: ATTEND Anesthesiology
DX: M46.1 Sacroiliitis, not elsewhere classified (principal); M53.3 Sacrococcygeal disorders, not elsewhere classified; M79.7 Fibromyalgia; Z79.899 Other long term (current) drug therapy; Z88.5 Allergy status to narcotic agent; Z88.8 Allergy status to other drugs, medicaments and biological substances
CPT/HCPCS: G0260; J3301; Q9967

== ENCOUNTER → 2020-03-22 | Outpatient (CLI) | payer SELFPAY ==
[~2020-03-22] MED LIST changes: -BUPIVACAINE HCL 0.25% 30ML VIAL As Ordered ONE; -ISOVUE-M 300 61% 15ML VIAL As Ordered ONE; -LIDOCAINE 1% SDV 30ML VIAL As Ordered ONE; -TRIAMCINOLONE ACETONIDE SUSP 40 MG/ML VIAL (J3301) As Ordered ONE; -diazePAM 5 MG TAB As Ordered ONE; -oxyCODONE 5MG TAB As Ordered ONE
== END ==
LOC: M LABSMTC 11:20
PROVIDERS: ATTEND Pediatrics
DX: Z20.828 Contact with and (suspected) exposure to other viral communicable diseases (principal)

== ENCOUNTER → 2020-03-28 | Outpatient (CLI) | payer BC ==
--- NOTE | 2020-03-30 06:01 | ECWPNPC ---
PATIENT NAME: HOLLIE SEXTON : 1985 GENDER: FEMALE VISIT DATE: 03/28/2020 DISCHARGE DATE: 03/28/20 1359 VISIT LOCKED DATE TIME: PHYSICIAN: MING HENDERSON RESOURCE: MING HENDERSON REASON FOR APPOINTMENT 1. POST BILATERAL SIJ HISTORY OF PRESENT ILLNESS GENERAL: 34-YEAR-OLD FEMALE IN FOR POST BILATERAL SACROILIAC JOINT BLOCK FOLLOW-UP. SHE FEELS THE PROCEDURE WAS SUCCESSFUL OVERALL RATING HER PAIN PREPROCEDURE AT A 7 OUT OF 10 AND POSTPROCEDURE AT A 1 OUT OF 10. SHE FURTHER STATES THE PROCEDURE CONTINUES TO HELP HER TODAY RATING HER PAIN AT A 1 OUT OF 10. FALL RISK SCREENING: SCREENING :ONE FALL WITHOUT INJURY IN THE PAST YEAR PAIN SCREENING: PATIENT HAS A COMPLAINT OF ACUTE OR CHRONIC PAIN :YES LOCATION OF PAIN: PELVIC PAIN INTENSITY OF PAIN (SCALE OF 1 TO 10):1 WHAT DOES YOUR PAIN FEEL LIKE:ACHING PRESSURE DURATION:INTERMITTENT PAIN IS INCREASED BY:ACTIVITIES PAIN IS DECREASED BY: CHANGE POSITIONS TREATMENT/MEDICATIONS USED TO MANAGE PAIN:OTC PAIN RELIEVERS LEVEL OF RELIEF FROM PAIN TREATMENTS IN THE PAST:25% PAIN HAS INTERFERED WITH THE FOLLOWING:TOILETING NURSING NOTE: -. PAIN CENTER INTAKE QUESTIONS: DO YOU HAVE A HISTORY OF MRSA? :NO DO YOU TAKE A BLOOD THINNERS? :NO DO YOU HAVE ANY BLEEDING DISORDERS? :NO ANY NEW NUMBNESS OR WEAKNESS IN YOUR LEGS OR ARMS? :NO ANY PACEMAKER,DEFIBRILLATOR, OR DORSAL COLUMN STIMULATOR? :NO DO YOU HAVE ANY RASHES OR OPEN SORES? :NO ARE YOU ALLERGIC TO IV DYE? :NO ARE YOU DIABETIC? :NO ANY NEW PROBLEMS WITH YOUR MEDICATIONS? :NO HAVE YOU RECEIVED A VACCINE IN THE PAST 30 DAYS? :NO DO YOU PLAN TO RECEIVE A VACCINE IN THE NEXT 21 DAYS? :NO DO YOU NEED ANY PRESCRIPTION? :NO DO YOU TAKE ANY IMMUNOSUPPRESSIVE MEDICATIONS? :NO IS THERE A CHANCE YOU COULD BE ? :NO ARE YOU BREAST FEEDING? :NO CURRENT MEDICATIONS TAKING MULTIVITAMIN ADULT - TABLET ORALLY TAKING PROVERA 10 MG TABLET 1 TABLET WITH FOOD ORALLY ONCE A DAY, NOTES: FOR ACUTE / HEAVY /PROLONGED MENSTRUATION. TAKING CONCERTA TAKING PROVERA 10 MG TABLET 1 TABLET WITH FOOD ORALLY ONCE A DAY TAKING GABAPENTIN 100 MG CAPSULE 1 CAPSULE ORALLY ONCE A DAY, NOTES: NOT SURE OF DOSE TAKING METHYLPHENIDATE 8.6 MG TABLET EXTENDED RELEASE DISINTEGRATING 1 TABLET IN THE MORNING ORALLY TID TAKING TRAMADOL HCL 50 MG TABLET 1 TABLET NEEDED ORALLY ONCE A DAY NOT-TAKING MELOXICAM 15 MG TABLET 1 TABLET ORALLY ONCE A DAY NOT-TAKING NORETHINDRONE 0.35 MG TABLET 1 TABLET ORALLY ONCE A DAY NOT-TAKING CLINDAMYCIN PHOSPHATE 1 % SWAB 1 APPLICATION EXTERNALLY TWICE DAILY TO ACNE PRONE AREAS ON FACE AND BACK NOT-TAKING DEBLITANE 0.35 MG TABLET TAKE ONE TABLET BY MOUTH EVERY DAY ORAL , NOTES: DUPLICATE NOT-TAKING DICLOFENAC SODIUM 75 MG TABLET DELAYED RELEASE 1 TABLET WITH FOOD OR MILK ORALLY TWICE A DAY NOT-TAKING METHYLPHENIDATE HCL ER 18 MG TABLET EXTENDED RELEASE (SCHEDULE II DRUG) TAKE TWO TABLETS BY MOUTH EVERY MORNING MAXIMUM DAILY DOSE 2 ORAL , NOTES: 03/12/201099 NOT-TAKING DULOXETINE HCL 60 MG CAPSULE DELAYED RELEASE PARTICLES TAKE ONE CAPSULE BY MOUTH IN THE EVENING ORAL , NOTES: 03/12/201099 NOT-TAKING VITAMIN D 25 MCG (1000 UT) TABLET 1 TABLET ORALLY ONCE A DAY, NOTES: 03/12/201099 NOT-TAKING IRON 325 (65 FE) MG TABLET 1 TABLET ORALLY ONCE A DAY, NOTES: 03/12/201099 NOT-TAKING GABAPENTIN 400 MG CAPSULE 1 CAPSULE ORALLY ONCE A DAY, NOTES: 03/12/201099 NOT-TAKING KETOCONAZOLE 2 % SHAMPOO 1 APPLICATION EXTERNALLY 2-3 TIMES PER WEEK SHAMPOO SCALP, NOTES: NONE RECENT MEDICATION LIST REVIEWED AND RECONCILED WITH THE PATIENT PAST MEDICAL HISTORY 4TH DEGREE VAGINAL TEAR FIBROMYALGIA ALLERGIES MORPHINE SULFATE: HIVES - ALLERGY VICODIN: ANAPHYLAXIS - ALLERGY DILAUDID: HIVES - ALLERGY MODAFINIL: HIVES - ALLERGY SURGICAL HISTORY SURGERY ON RIGHT ARM X 4 4TH DEGREE VAGINAL TEAR REPAIR AFTER CHILD WISDOM REMOVAL HERNIA REPAIR FAMILY HISTORY FATHER: ALIVE, TESTICULAR CANCER,, DIVERTICULITIS MOTHER: ALIVE, BREAST CANCER,IBS SIBLINGS: ALIVE, DM,ANXIETY 1 SISTER(S) . 1 SON(S) - HEALTHY. UNCLE- SKIN CANCER. SOCIAL HISTORY GENERAL: TOBACCO USE ARE YOU A: NEVER SMOKER LATEX QUESTIONNAIRE LATEX ALLERGY : HAVE YOU EVER DEVELOPED ANY TYPE OF REACTION AFTER HANDLING LATEX PRODUCTS SUCH RUBBER GLOVES, CONDOMS, DIAPHRAGMS, BALLOONS, SOCKS, OR UNDERWEAR?NO LATEX ALLERGY : HAVE YOU EVER DEVELOPED ANY TYPE OF REACTION DURING OR AFTER DENTAL APPOINTMENT, VAGINAL/RECTAL EXAMINATION, SURGICAL PROCEDURE, OR ANY OTHER EXPOSURE?NO DATE ASKED : 01/24/2020 LATEX RISK : HAVE YOU EVER HAD ANY DIFFICULTY BREATHING OR HIVES AFTER EATING OR HANDLING ANY FRUITS, OR VEGETABLES; SUCH KIWI, BANANAS, STONE FRUITS, OR CHESTNUTSNO LATEX RISK : DO YOU HAVE A PREVIOUS PERSONAL HISTORY OF MORE THAN NINE SURGERIES, SPINA BIFIDA, OR REPEATED CATHERIZATIONS? NO LATEX RISK : ARE YOU FREQUENTLY EXPOSED TO LATEX PRODUCTS IN YOUR OCCUPATION?NO ALCOHOL SCREENING DID YOU HAVE A DRINK CONTAINING ALCOHOL IN THE PAST YEAR?YES HOW OFTEN DID YOU HAVE A DRINK CONTAINING ALCOHOL IN THE PAST YEAR?MONTHLY OR LESS (1 POINT) POINTS1 INTERPRETATIONNEGATIVE RECREATIONAL DRUG USE DRUG USE?NO CAFFEINE CAFFEINE USE?NO LANGUAGE HEBREW. 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 MARITAL STATUS: . OTHERS AT HOME: SPOUSE, CHILD. PAIN CLINIC PFS, CLERGY, PUBLIC HEALTH REFERRALS HAS THE PATIENT BEEN EDUCATED REGARDING HIS/HER PLAN OF CARE?YES HAS THE PATIENT BEEN EDUCATED REGARDING PAIN, THE RISK FOR PAIN, THE IMPORTANCE OF EFFECTIVE PAIN MANAGEMENT, AND THE PAIN ASSESSMENT PROCESS?YES ADVANCE DIRECTIVE ADVANCE DIRECTIVE DISCUSSED WITH PATIENT:YES HCP - CB () HOSPITALIZATION/MAJOR DIAGNOSTIC PROCEDURE CHILD RIGHT ARM REPAIR COMPOUND FRACTURE REVIEW OF SYSTEMS CONSTITUTIONAL: ANY RECENT FEVER NO . CHILLS NO . WEIGHT CHANGE OF UNKNOWN REASONS NO . GASTROENTEROLOGY: NEW UNEXPLAINABLE CHANGES IN BOWEL CONTROL NO . CONSTIPATION NO . GENITOURINARY: ANY NEW CHANGE IN BLADDER CONTROL? NO . NEUROLOGY: NEW ONSET DIZZINESS OR NEUROLOGICAL CHANGES NOT MENTIONED NO . NEW NUMBNESS OR PAIN PATTERNS NOT MENTIONED AND PERTINENT TO TODAY'S VISIT NO . CARDIOLOGY: NEW CHEST PRESSURE NO . NEW CHEST PAIN NO . RESPIRATORY: UNEXPLAINABLE COUGH NO . NEW SHORTNESS OF BREATH NO . VITAL SIGNS WT 209.8 LBS, HT 66 IN, BMI 33.86 INDEX, BP 109/74 MM HG, HR 79 /MIN, RR 18 /MIN, TEMP 98 F, OXYGEN SAT % 99%, SAFE IN ENV? (Y/N) Y, NA INITIALS GA 13:07, REVIEWED BY: EM. EXAMINATION GENERAL EXAMINATION: GENERALNO ACUTE DISTRESS, WELL NOURISHED AND HYDRATED. PSYCHAPPROPRIATE MOOD AND AFFECT . LUNGS:CLEAR TO AUSCULTATION BILATERALLY, NO WHEEZES, RHONCHI, RALES. HEART:NO MURMURS, REGULAR RATE AND RHYTHM. ASSESSMENTS OTHER CHRONIC PAIN - G89.29 (PRIMARY) SACROILIITIS, NOT ELSEWHERE CLASSIFIED - M46.1 TREATMENT OTHER CHRONIC PAIN PAIN PROCEDURE LOGDATE OF [id number]/20PROCEDURE:BILATERAL SACROILIAC BLOCKAMOUNT OF PRE SEDATEVALIUM 5MG, OXYCODONE 5MGRESULT:PRE-10/28 POST-04/30 CONTINUES TODAY THIS PROCEDURE WAS REVIEWED BY JEFF FRANCISCO ON 03/29/2020 AT 16:06 PM EST NOTES: 34-YEAR-OLD FEMALE IN FOR POST SACROILIAC JOINT BLOCK FOLLOW-UP. GIVEN PRESENTING SYMPTOMS RECOMMEND FOLLOW-UP IN ONE MONTH AT THAT TIME WE WILL DISCUSS THE POTENTIAL FOR A GANGLION IMPAR BLOCK. WE'LL DISCUSS CASE WITH DR. CARIAS FOR HIS RECOMMENDATIONS. PATIENT HAS EXPRESSED UNDERSTANDING OF AND WAS IN AGREEMENT WITH TREATMENT PLAN. GIVEN TIME TO ASK QUESTIONS AND EXPRESS CONCERNS. PROCEDURE CODES FA211 ESTABILISHED PATIENT [facility] CHARGE DISPOSITION & COMMUNICATION FOLLOW UP 4 WEEKS (REASON: SACROILIITIS) ELECTRONICALLY SIGNED BY ANDREAS SHOEMAKER ON 03/29/2020 AT 09:09 AM EST DISCLAIMER : THIS IS A VISIT SUMMARY EXTRACTED FROM THE [employer] CHART. IT IS NOT A COPY OF THE [employer] PROGRESS NOTE. [facility]
== END ==
LOC: M PAIN 13:30
PROVIDERS: ATTEND Family Medicine
DX: G89.29 Other chronic pain (principal); M46.1 Sacroiliitis, not elsewhere classified; M79.7 Fibromyalgia; Z79.891 Long term (current) use of opiate analgesic; Z79.899 Other long term (current) drug therapy; Z88.5 Allergy status to narcotic agent; Z88.8 Allergy status to other drugs, medicaments and biological substances

== ENCOUNTER → 2020-04-25 | Outpatient (CLI) | payer BC ==
--- NOTE | 2020-04-27 01:32 | ECWPNPC ---
PATIENT NAME: HOLLIE SEXTON : 1985 GENDER: FEMALE VISIT DATE: 04/25/2020 DISCHARGE DATE: 04/25/20 1029 VISIT LOCKED DATE TIME: PHYSICIAN: MING HENDERSON RESOURCE: MING HENDERSON REASON FOR APPOINTMENT 1. PELVIC AREA HISTORY OF PRESENT ILLNESS PAIN CENTER INTAKE QUESTIONS: 34-YEAR-OLD FEMALE IN FOR CHRONIC PAIN FOLLOW-UP. SHE RATES HER PAIN CURRENTLY AT A 4 OUT OF 10 AND DESCRIBES IT ACHING AND CONTINUOUS. PATIENT ADMITS TO CONTINUED DISCOMFORT IN AND AROUND THE COCCYX AREA. GENERAL: -. FALL RISK SCREENING: SCREENING :ONE FALL WITHOUT INJURY IN THE PAST YEAR SLIPPED AND FELL IN DRIVEWAY. PAIN SCREENING: PATIENT HAS A COMPLAINT OF ACUTE OR CHRONIC PAIN :YES LOCATION OF PAIN:LOW BACK, OTHER: PELVIC AREA INTENSITY OF PAIN (SCALE OF 1 TO 10):4 AVERAGE PELVIC AREA PAIN IS 4 BUT INCREASES IN CENTER PELVIS. WHAT DOES YOUR PAIN FEEL LIKE:ACHING, CONTINOUS, OTHER PRESSURE DURATION:CONTINOUS, CONSTANT, AWAKENS FROM SLEEP PAIN IS INCREASED BY:OTHERS CERTAIN POSITIONS. PAIN IS DECREASED BY:OTHERS REST, RELAXATION TECHNIQUES, STRETCHING. NURSING NOTE: -. CURRENT MEDICATIONS TAKING MULTIVITAMIN ADULT - TABLET ORALLY TAKING CONCERTA TAKING PROVERA 10 MG TABLET 1 TABLET WITH FOOD ORALLY ONCE A DAY TAKING GABAPENTIN 100 MG CAPSULE 1 CAPSULE ORALLY ONCE A DAY, NOTES: NOT SURE OF DOSE TAKING METHYLPHENIDATE 8.6 MG TABLET EXTENDED RELEASE DISINTEGRATING 1 TABLET IN THE MORNING ORALLY TID TAKING TRAMADOL HCL 50 MG TABLET 1 TABLET NEEDED ORALLY ONCE A DAY TAKING MELOXICAM 15 MG TABLET 1 TABLET ORALLY ONCE A DAY TAKING NORETHINDRONE 0.35 MG TABLET 1 TABLET ORALLY ONCE A DAY TAKING METHYLPHENIDATE HCL ER 18 MG TABLET EXTENDED RELEASE (SCHEDULE II DRUG) TAKE TWO TABLETS BY MOUTH EVERY MORNING MAXIMUM DAILY DOSE 2 ORAL , NOTES: 03/12/20 1100 TAKING DULOXETINE HCL 60 MG CAPSULE DELAYED RELEASE PARTICLES TAKE ONE CAPSULE BY MOUTH IN THE EVENING ORAL , NOTES: 03/12/20 1100 TAKING VITAMIN D 25 MCG (1000 UT) TABLET 1 TABLET ORALLY ONCE A DAY, NOTES: 03/12/20 1100 TAKING IRON 325 (65 FE) MG TABLET 1 TABLET ORALLY ONCE A DAY, NOTES: 03/12/20 1100 TAKING GABAPENTIN 400 MG CAPSULE 1 CAPSULE ORALLY ONCE A DAY, NOTES: 03/12/20 1100 TAKING KETOCONAZOLE 2 % SHAMPOO 1 APPLICATION EXTERNALLY 2-3 TIMES PER WEEK SHAMPOO SCALP, NOTES: NONE RECENT NOT-TAKING CLINDAMYCIN PHOSPHATE 1 % SWAB 1 APPLICATION EXTERNALLY TWICE DAILY TO ACNE PRONE AREAS ON FACE AND BACK NOT-TAKING DEBLITANE 0.35 MG TABLET TAKE ONE TABLET BY MOUTH EVERY DAY ORAL , NOTES: DUPLICATE NOT-TAKING DICLOFENAC SODIUM 75 MG TABLET DELAYED RELEASE 1 TABLET WITH FOOD OR MILK ORALLY TWICE A DAY DISCONTINUED PROVERA 10 MG TABLET 1 TABLET WITH FOOD ORALLY ONCE A DAY, NOTES: FOR ACUTE / HEAVY /PROLONGED MENSTRUATION. MEDICATION LIST REVIEWED AND RECONCILED WITH THE PATIENT PAST MEDICAL HISTORY 4TH DEGREE VAGINAL TEAR FIBROMYALGIA ALLERGIES MORPHINE SULFATE: HIVES - ALLERGY VICODIN: ANAPHYLAXIS - ALLERGY DILAUDID: HIVES - ALLERGY MODAFINIL: HIVES - ALLERGY SURGICAL HISTORY SURGERY ON RIGHT ARM X 4 4TH DEGREE VAGINAL TEAR REPAIR AFTER CHILD WISDOM REMOVAL HERNIA REPAIR FAMILY HISTORY FATHER: ALIVE, TESTICULAR CANCER,, DIVERTICULITIS MOTHER: ALIVE, BREAST CANCER,IBS SIBLINGS: ALIVE, DM,ANXIETY 1 SISTER(S) . 1 SON(S) - HEALTHY. UNCLE- SKIN CANCER. SOCIAL HISTORY GENERAL: TOBACCO USE ARE YOU A: NEVER SMOKER LATEX QUESTIONNAIRE LATEX ALLERGY : HAVE YOU EVER DEVELOPED ANY TYPE OF REACTION AFTER HANDLING LATEX PRODUCTS SUCH RUBBER GLOVES, CONDOMS, DIAPHRAGMS, BALLOONS, SOCKS, OR UNDERWEAR?NO LATEX ALLERGY : HAVE YOU EVER DEVELOPED ANY TYPE OF REACTION DURING OR AFTER DENTAL APPOINTMENT, VAGINAL/RECTAL EXAMINATION, SURGICAL PROCEDURE, OR ANY OTHER EXPOSURE?NO LATEX RISK : HAVE YOU EVER HAD ANY DIFFICULTY BREATHING OR HIVES AFTER EATING OR HANDLING ANY FRUITS, OR VEGETABLES; SUCH KIWI, BANANAS, STONE FRUITS, OR CHESTNUTSNO LATEX RISK : DO YOU HAVE A PREVIOUS PERSONAL HISTORY OF MORE THAN NINE SURGERIES, SPINA BIFIDA, OR REPEATED CATHERIZATIONS? NO LATEX RISK : ARE YOU FREQUENTLY EXPOSED TO LATEX PRODUCTS IN YOUR OCCUPATION?NO DATE ASKED : 04/25/2020 LUNG CANCER SCREENING SMOKING STATUS:NON SMOKER ALCOHOL SCREENING DID YOU HAVE A DRINK CONTAINING ALCOHOL IN THE PAST YEAR?YES HOW OFTEN DID YOU HAVE A DRINK CONTAINING ALCOHOL IN THE PAST YEAR?MONTHLY OR LESS (1 POINT) POINTS1 INTERPRETATIONNEGATIVE RECREATIONAL DRUG USE DRUG USE?NO CAFFEINE CAFFEINE USE?NO LANGUAGE PUERTO RICAN. 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 MARITAL STATUS: . OTHERS AT HOME: SPOUSE, CHILD. PAIN CLINIC PFS, CLERGY, PUBLIC HEALTH REFERRALS HAS THE PATIENT BEEN EDUCATED REGARDING HIS/HER PLAN OF CARE?YES HAS THE PATIENT BEEN EDUCATED REGARDING PAIN, THE RISK FOR PAIN, THE IMPORTANCE OF EFFECTIVE PAIN MANAGEMENT, AND THE PAIN ASSESSMENT PROCESS?YES ADVANCE DIRECTIVE ADVANCE DIRECTIVE DISCUSSED WITH PATIENT:YES HCP - CB () HOSPITALIZATION/MAJOR DIAGNOSTIC PROCEDURE CHILD RIGHT ARM REPAIR COMPOUND FRACTURE REVIEW OF SYSTEMS CONSTITUTIONAL: ANY RECENT FEVER NO . CHILLS NO . WEIGHT CHANGE OF UNKNOWN REASONS NO . GASTROENTEROLOGY: NEW UNEXPLAINABLE CHANGES IN BOWEL CONTROL NO . CONSTIPATION NO . GENITOURINARY: ANY NEW CHANGE IN BLADDER CONTROL? NO . NEUROLOGY: NEW ONSET DIZZINESS OR NEUROLOGICAL CHANGES NOT MENTIONED NO . NEW NUMBNESS OR PAIN PATTERNS NOT MENTIONED AND PERTINENT TO TODAY'S VISIT NO . CARDIOLOGY: NEW CHEST PRESSURE NO . NEW CHEST PAIN NO . RESPIRATORY: UNEXPLAINABLE COUGH NO . NEW SHORTNESS OF BREATH NO . VITAL SIGNS WT 212.2 LBS, HT 66 IN, BMI 34.25 INDEX, BP 100/67 MM HG, HR 94 /MIN, RR 18 /MIN, TEMP 97.0 F, OXYGEN SAT % 96%, SAFE IN ENV? (Y/N) YES, NA INITIALS AW 0933, REVIEWED BY: LILIA WIN. EXAMINATION GENERAL EXAMINATION: GENERALNO ACUTE DISTRESS, WELL NOURISHED AND HYDRATED. PSYCHAPPROPRIATE MOOD AND AFFECT . LUNGS:CLEAR TO AUSCULTATION BILATERALLY, NO WHEEZES, RHONCHI, RALES. HEART:NO MURMURS, REGULAR RATE AND RHYTHM. ASSESSMENTS COCCYDYNIA - M53.3 (PRIMARY) TREATMENT COCCYDYNIA NOTES: 34-YEAR-OLD FEMALE IN FOR CHRONIC PAIN FOLLOW-UP. GIVEN PRESENTING SYMPTOMS RECOMMENDED GANGLION IMPAR BLOCK WITH POSTPROCEDURAL FOLLOW-UP. PATIENT HAS EXPRESSED UNDERSTANDING OF WAS IN AGREEMENT WITH TREATMENT PLAN. GIVEN TIME TO ASK QUESTIONS AND EXPRESS CONCERNS. PATIENT VERBALIZES UNDERSTANDING OF PRE PROCEDURE INSTRUCTIONS REVIEWED AND VERBLAIZES UNDERSTANDING OF GANGLION IMPAR BLOCK. PATIENT DECLINES WRITTEN PROCEDURE INFORMATION. 04/25/2020 Nanette SANTA RN. PROCEDURE CODES FA211 ESTABILISHED PATIENT [facility] CHARGE DISPOSITION & COMMUNICATION FOLLOW UP POSTPROCEDURE (REASON: GANGLION IMPAR BLOCK) ELECTRONICALLY SIGNED BY ANDREAS SHOEMAKER ON 04/26/2020 AT 09:00 AM EST DISCLAIMER : THIS IS A VISIT SUMMARY EXTRACTED FROM THE [employer] CHART. IT IS NOT A COPY OF THE [employer] PROGRESS NOTE. AMARIS
== END ==
LOC: M PAIN 09:15
PROVIDERS: ATTEND Family Medicine
DX: M53.3 Sacrococcygeal disorders, not elsewhere classified (principal); G89.29 Other chronic pain; M79.7 Fibromyalgia; Z88.5 Allergy status to narcotic agent; Z88.8 Allergy status to other drugs, medicaments and biological substances; Z79.899 Other long term (current) drug therapy

== ENCOUNTER → 2020-05-16 | Outpatient (CLI) | payer BC ==
--- NOTE | 2020-05-16 09:25 | REPMRS ---
Patient History The patient states she has not had a clinical breast exam in over a year. Family history of breast cancer at age 43 in mother, unknown cancer at age 50 in paternal aunt. Benign US guided breast biopsy of the left breast, May 25, 2019. Taking hormonal contraceptives for 1 year. Took progesterone for 2 months. Digital Woman Screen Mammo: May 16, 2020 - Exam #: [id number] Bilateral CC and MLO view(s) were taken. Technologist: RT Ammon Prior study comparison: May 25, 2019, left breast digital mammo diagnostic unilateral, performed at [facility]. May 14, 2019, bilateral digital mammo screening bilat, performed at [facility]. FINDINGS: There are scattered fibroglandular densities. The Volpara volumetric breast density category is:B. There is a needle biopsy marker clipr adjacent to previously biopsied stable well-circumscribed macrolobulated 16 mm nodule in the left medial breast. There has been no change in the appearance of the mammogram from the prior studies. There is a mild amount of scattered fibroglandular density which is fairly symmetric. There is no interval development of dominant mass, architectural distortion, or grouped microcalcification suggestive of malignancy. 3-D tomosynthesis shows no additional findings. Assessment: BI-RADS/ACR category 2 mammogram. Benign Findings. Recommendation Breast MRI of both breasts in 6 months. Routine screening mammogram of both breasts in 1 year (for women over age 40). This patient's [facility] Lifetime Breast Cancer Risk is estimated at 25.7 %. Annual screening Breast MRI scanniing is recommended for patient's whose lifetime risk assessment is over 20%. This mammogram was interpreted with the aid of an FDA-approved computer-aided dectection system. Electronically Signed By: Jame Martinez MD 05/16/20 0924
== END ==
LOC: M WHC 08:12
PROVIDERS: ATTEND Physician Assistant
DX: Z12.31 Encounter for screening mammogram for malignant neoplasm of breast (principal); N63.25 Unspecified lump in the left breast, overlapping quadrants; Z97.8 Presence of other specified devices; Z80.3 Family history of malignant neoplasm of breast; Z86.018 Personal history of other benign neoplasm

== ENCOUNTER → 2020-05-31 | Outpatient (CLI) | payer BC | LOC: M LABSMTC 13:28 | PROVIDERS: ATTEND Anesthesiology | DX: Z20.828 Contact with and (suspected) exposure to other viral communicable diseases (principal) ==

== ENCOUNTER → 2020-06-05 | Outpatient (CLI) | payer BC ==
[~2020-06-05] MED LIST changes: +BUPIVACAINE HCL 0.25% 30ML VIAL As Ordered ONE; +ISOVUE-M 300 61% 15ML VIAL As Ordered ONE; +LIDOCAINE 1% SDV 30ML VIAL As Ordered ONE; +TRIAMCINOLONE ACETONIDE SUSP 40 MG/ML VIAL (J3301) As Ordered ONE; +diphenhydrAMINE 50MG/ML VIAL (J1200) As Ordered ONE
--- NOTE | 2020-06-06 09:33 | REP ---
INDICATION: GANGLION IMPAR BLOCK. COMPARISON: None. TECHNIQUE: Six views. 49.3 seconds of fluoroscopy time is reported. FINDINGS: A sequence of 6 last image hold fluoroscopically obtained frontal and lateral views of the coccyx document needle position and contrast injection. IMPRESSION: Procedural imaging. <Electronically signed by Jame Martinez > 06/06/20 [id number]
--- NOTE | 2020-06-14 06:22 | ECWPNPC ---
PATIENT NAME: HOLLIE SEXTON : 1985 GENDER: FEMALE VISIT DATE: 06/05/2020 DISCHARGE DATE: 06/05/20848 VISIT LOCKED DATE TIME: PHYSICIAN: ION CARIAS MD RESOURCE: ION CARIAS MD REASON FOR APPOINTMENT 1. GANGLION IMPAR BLOCK HISTORY OF PRESENT ILLNESS GENERAL: 34-YEAR-OLD FEMALE PATIENT WITH A HISTORY OF CHRONIC PELVIC PAIN. THE PATIENT DESCRIBES THE PAIN BURNING AND ACHING WITH A PAIN SCORE RANGING FROM 6-9/10. THE PATIENT IS UNABLE TO FUNCTION DUE TO THIS PAIN. SHE HAS TRIED MEDICATION MANAGEMENT AND MULTIPLE INJECTIONS, UNFORTUNATELY, THE PAIN PERSISTS. FALL RISK SCREENING: SCREENING :TWO OR MORE FALLS WITHOUT INJURY IN THE PAST YEAR PAIN SCREENING: PATIENT HAS A COMPLAINT OF ACUTE OR CHRONIC PAIN :YES LOCATION OF PAIN:LOW BACK, LEFT HIP, RIGHT HIP INTENSITY OF PAIN (SCALE OF 1 TO 10):8 WHAT DOES YOUR PAIN FEEL LIKE:THROBBING DURATION:CONTINOUS, CONSTANT PAIN IS INCREASED BY:ACTIVITIES, PROLONGED STANDING, OTHERS WALKING PAIN IS DECREASED BY: NOTHING HELPS TO RELIEVE THIS PAIN NURSING NOTE: -. PAIN CENTER INTAKE QUESTIONS: DO YOU HAVE A HISTORY OF MRSA? :NO DO YOU TAKE A BLOOD THINNERS? :NO DO YOU HAVE ANY BLEEDING DISORDERS? :NO ANY NEW NUMBNESS OR WEAKNESS IN YOUR LEGS OR ARMS? :NO ANY PACEMAKER,DEFIBRILLATOR, OR DORSAL COLUMN STIMULATOR? :NO DO YOU HAVE ANY RASHES OR OPEN SORES? :NO ARE YOU ALLERGIC TO IV DYE? :NO ARE YOU DIABETIC? :NO ANY NEW PROBLEMS WITH YOUR MEDICATIONS? :NO HAVE YOU RECEIVED A VACCINE IN THE PAST 30 DAYS? :NO 2ND COVID VACCINE 05/03/20 DO YOU PLAN TO RECEIVE A VACCINE IN THE NEXT 21 DAYS? :NO DO YOU TAKE ANY IMMUNOSUPPRESSIVE MEDICATIONS? :NO ANY HISTORY OF SEIZURES? :NO ANY HISTORY OF CARDIAC ISSUES OR EVENTS? :NO DO YOU HAVE SLEEP APNEA? :NO ANY RECENT HEAD INJURY? :NO DO YOU HAVE ANY NEW INFECTIONS? :NO IS THERE A CHANCE YOU COULD BE ? :NO ARE YOU BREAST FEEDING? :NO WHEN DID YOU LAST EAT? : 06/04/201699 WHEN DID YOU LAST DRINK? : 06/05/201699 WHAT DID YOU LAST DRINK? : WATER NAME OF PERSON DRIVING YOU HOME? : CLARICE CASTLE (FATHER) DO YOU HAVE ANY OTHER QUESTIONS OR CONCERNS? : NO CURRENT MEDICATIONS TAKING MULTIVITAMIN ADULT - TABLET ORALLY TAKING PROVERA 10 MG TABLET 1 TABLET WITH FOOD ORALLY ONCE A DAY TAKING TRAMADOL HCL 50 MG TABLET 1 TABLET NEEDED ORALLY ONCE A DAY, NOTES: NOT RECENTLY TAKING MELOXICAM 15 MG TABLET 1 TABLET ORALLY ONCE A DAY NEEDED, NOTES: NOT RECENTLY TAKING METHYLPHENIDATE HCL ER 18 MG TABLET EXTENDED RELEASE (SCHEDULE II DRUG) TAKE TWO TABLETS BY MOUTH EVERY MORNING MAXIMUM DAILY DOSE 2 ORAL TAKING DULOXETINE HCL 60 MG CAPSULE DELAYED RELEASE PARTICLES TAKE ONE CAPSULE BY MOUTH IN THE EVENING ORAL TAKING GABAPENTIN 400 MG CAPSULE 1 CAPSULE ORALLY ONCE A DAY TAKING KETOCONAZOLE 2 % SHAMPOO 1 APPLICATION EXTERNALLY 2-3 TIMES PER WEEK SHAMPOO SCALP, NOTES: NONE RECENT NOT-TAKING CONCERTA 1 TABLET IN THE MORNING ORALLY DAILY NOT-TAKING GABAPENTIN 100 MG CAPSULE 1 CAPSULE ORALLY ONCE A DAY NOT-TAKING METHYLPHENIDATE 8.6 MG TABLET EXTENDED RELEASE DISINTEGRATING 1 TABLET IN THE MORNING ORALLY TID NOT-TAKING NORETHINDRONE 0.35 MG TABLET 1 TABLET ORALLY ONCE A DAY NOT-TAKING VITAMIN D 25 MCG (1000 UT) TABLET 1 TABLET ORALLY ONCE A DAY NOT-TAKING IRON 325 (65 FE) MG TABLET 1 TABLET ORALLY ONCE A DAY NOT-TAKING CLINDAMYCIN PHOSPHATE 1 % SWAB 1 APPLICATION EXTERNALLY TWICE DAILY TO ACNE PRONE AREAS ON FACE AND BACK NOT-TAKING DEBLITANE 0.35 MG TABLET TAKE ONE TABLET BY MOUTH EVERY DAY ORAL , NOTES: DUPLICATE NOT-TAKING DICLOFENAC SODIUM 75 MG TABLET DELAYED RELEASE 1 TABLET WITH FOOD OR MILK ORALLY TWICE A DAY MEDICATION LIST REVIEWED AND RECONCILED WITH THE PATIENT PAST MEDICAL HISTORY 4TH DEGREE VAGINAL TEAR FIBROMYALGIA CHRONIC PAIN ALLERGIES MORPHINE SULFATE: HIVES - ALLERGY VICODIN: ANAPHYLAXIS - ALLERGY DILAUDID: HIVES - ALLERGY MODAFINIL: HIVES - ALLERGY SOCIAL HISTORY GENERAL: TOBACCO USE ARE YOU A: NEVER SMOKER LATEX QUESTIONNAIRE LATEX ALLERGY : HAVE YOU EVER DEVELOPED ANY TYPE OF REACTION AFTER HANDLING LATEX PRODUCTS SUCH RUBBER GLOVES, CONDOMS, DIAPHRAGMS, BALLOONS, SOCKS, OR UNDERWEAR?NO LATEX ALLERGY : HAVE YOU EVER DEVELOPED ANY TYPE OF REACTION DURING OR AFTER DENTAL APPOINTMENT, VAGINAL/RECTAL EXAMINATION, SURGICAL PROCEDURE, OR ANY OTHER EXPOSURE?NO LATEX RISK : HAVE YOU EVER HAD ANY DIFFICULTY BREATHING OR HIVES AFTER EATING OR HANDLING ANY FRUITS, OR VEGETABLES; SUCH KIWI, BANANAS, STONE FRUITS, OR CHESTNUTSNO LATEX RISK : DO YOU HAVE A PREVIOUS PERSONAL HISTORY OF MORE THAN NINE SURGERIES, SPINA BIFIDA, OR REPEATED CATHERIZATIONS? NO LATEX RISK : ARE YOU FREQUENTLY EXPOSED TO LATEX PRODUCTS IN YOUR OCCUPATION?NO DATE ASKED : 04/25/2020 ALCOHOL USE: NO. LUNG CANCER SCREENING SMOKING STATUS:NON SMOKER ALCOHOL SCREENING DID YOU HAVE A DRINK CONTAINING ALCOHOL IN THE PAST YEAR?YES HOW OFTEN DID YOU HAVE A DRINK CONTAINING ALCOHOL IN THE PAST YEAR?MONTHLY OR LESS (1 POINT) POINTS1 INTERPRETATIONNEGATIVE RECREATIONAL DRUG USE DRUG USE?NO CAFFEINE CAFFEINE USE?NO LANGUAGE ROMANIAN. 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 MARITAL STATUS: . OTHERS AT HOME: SPOUSE, CHILD. - HAS THE PATIENT BEEN EDUCATED REGARDING HIS/HER PLAN OF CARE?YES HAS THE PATIENT BEEN EDUCATED REGARDING PAIN, THE RISK FOR PAIN, THE IMPORTANCE OF EFFECTIVE PAIN MANAGEMENT, AND THE PAIN ASSESSMENT PROCESS?YES ADVANCE DIRECTIVE ADVANCE DIRECTIVE DISCUSSED WITH PATIENT:YES HCP - CB () REVIEW OF SYSTEMS GLAUCOMA: NOTHYROID DISEASE: NOHYPERTENSION: NOHEART DISEASE: YES, RAYNAUD'SLUNG DISEASE: NODIABETES: NOGI DISEASE: NO LIVER DISEASE: NO KIDNEY DISEASE: NOSTERIOD USE: NONEUROLOGICAL DISEASE: NOBACK PROBLEMS: YES, PAINEXTREMITIES: YES, PAINGENITOURINARY: NOBLEEDING DISORDER: NOASA CLASS: IIAIRWAY CLASS: II. VITAL SIGNS WT 216.0 LBS, HT 66 IN, BMI 34.86 INDEX, BP 117/62 MM HG, HR 77 /MIN, RR 18 /MIN, TEMP 97.7 F, OXYGEN SAT % 98%, SAFE IN ENV? (Y/N) YES, NA INITIALS MT, REVIEWED BY: MARION MACHINE CAGE MAKER. EXAMINATION GENERAL EXAMINATION: THE PATIENT IS ALERT, ORIENTED TIMES THREE AND COOPERATIVE. LUNGS ARE CLEAR TO AUSCULTATION. HEART SHOWS REGULAR RHYTHM, NO MURMURS AND NO GALLOPS. THERE IS TENDERNESS IN THE LOWER BACK AREA. ASSESSMENTS PELVIC PAIN - R10.2 (PRIMARY) COCCYDYNIA - M53.[address] [facility] FLUORO GUIDANCE (PAIN)[id number] MEDICATION: FENTANYL CITRATE 25MCG IVDIAD QUINTEROS 06/05/2020 03:58:18 PM - SECOND DOSE ORDERED, VERIFIED WITH AD PEREZ 06/05/2020 04:10:06 PM - THIRD DOSE ORDERED, VERIFIED WITH AD PEREZ 06/05/2020 04:12:26 PM - FOURTH DOSE ORDERED, VERIFIED WITH MEÑO PORRAS 06/05/2020 4:30:19 PM > 25 MCG ADMINISTERED AT 1552 25 MCG ADMINISTERED AT 1558 25 MCG ADMINISTERED AT 1610 25 MCG ADMINISTERED AT 1612 TOTAL DOSE DOCUMENTED WITH THE 50 MCG ORDER MED: VERSED 1MG IV MIDAZOLAMNASRA MINA 06/05/2020 3:01:20 PM > VERIFIED. AD RODRIGUES 06/05/2020 03:49:36 PM - SECOND DOSE ORDERED, VERIFIED WITH MEÑO PORRAS 06/05/2020 4:27:51 PM > 1 MG ADMINISTERED AT 1547 AND 1 MG ADMINISTERED AT 1549 FOR A TOTAL OF 2 MGS MEDICATION: FENTANYL CITRATE 50MCG IV NASRA MINA 06/05/2020 3:01:42 PM > VERIFIED. AD RODRIGUES 06/05/2020 04:15:17 PM - SECOND DOSE ORDERED, VERIFIED WITH MEÑO PORRAS 06/05/2020 4:31:23 PM > 50 MCG ADMINISTERED AT 1547 50 MCG ADMINISTERED AT 1650 TOTAL FENTANYL DOSE WITH 25 MCG DOSES 200 MCG MEÑO WADE 06/05/2020 4:34:21 PM > CORRECTION TO ABOVE: 2 ND 50 MCG DOSE ADMINISTERED AT 1615 FOR A TOTAL DOSE OF 200 MCG OF FENTANYL OXYGEN AT 2 LITERS PER NASAL CANNULALEOPOLDONASRA 06/05/2020 4:47:20 PM > OXYGEN ON AT 1531. OFF AT 1623. IV LACTATED RINGER'S AT SCOTTY ROMEO 06/05/2020 3:07:25 PM > IV #22 INITIATED ON FIRST ATTEMPT LEFT WRIST. PATIENT TOLERATED IV START WELL. LEOPOLDONASRA 06/05/2020 4:47:53 PM > PATIENT GIVEN A TOTAL OF 250CCS OF LR. MED: PAIN BENADRYL 25MG IV DIPHENHYDRAMINEMAUROMEÑO 06/05/2020 3:03:08 PM > VERIFIED NASRA MINA 06/05/2020 15:11:01 - ADMINISTERED AT 1508. AD RODRIGUES 06/05/2020 04:18:49 PM - SECOND DOSE ORDERED, VERIFIED WITH DR. CARIAS NASRA MINA 06/05/2020 5:32:13 PM > SECOND DOSE ADMINISTERED AT 1619. CLINICAL NOTES: I DISCUSSED ALTERNATIVES WITH MS. SEXTON. WE AGREE ON DOING A GANGLION IMPAR BLOCK TODAY WITH IV SEDATION DUE TO THE ANXIETY AND DISCOMFORT ASSOCIATED WITH THE PROCEDURE. THE PATIENT REPORTS UNDERSTANDING AND AGREES WITH THE PLAN. I, AD RODRIGUES, DOCUMENTED THE ABOVE INFORMATION ACTING A SCRIBE FOR DR. CARIAS. I HAVE REVIEWED THE ABOVE DOCUMENT, WRITTEN BY AD RODRIGUES, PHERESIS NURSE, AND I VERIFY THAT IT IS ACCURATE. COCCYDYNIA [facility] FLUORO GUIDANCE (PAIN)[id number] PROCEDURES PAIN NURSING RECORD PROCEDURE IN ROOM 1530, PHYSICIAN IN ROOM 1546, START 1551, FINISH 1617, PHYSICIAN OUT OF ROOM 1620, OUT OF ROOM 1627, ECG NORMAL SINUS, PATIENT SHIELDED YES, SAFETY STRAP YES, PREP CHLOROPREP Roshni SANTA RN, DRESSING TEGADERM DR. CARIAS LOC: NASRA MINA 06/05/2020 3:30:32 PM > 1. ALERT, ORIENTED RESP: NASRA MINA 06/05/2020 3:30:32 PM > 1. REGULAR, NO DYSPNEA COLOR: NASRA MINA 06/05/2020 3:30:32 PM > 1. PINK SKIN: NASRA MINA 06/05/2020 3:30:32 PM > 1. WARM, DRY POSITION: NASRA MINA 06/05/2020 3:30:32 PM > 1. PRONE VITALS: NASRA MINA 06/05/2020 3:30:32 PM > 116/71, 65, 100% RA, 18. NASRA MINA 06/05/2020 3:40:45 PM > 116/71, 77, 100% 2L NC, 18. NASRA MINA 06/05/2020 3:45:26 PM > 121/76, 67, 100% 2L NC, 18. NASRA MINA 06/05/2020 3:50:49 PM > 119/75, 69, 100% 2L NC, 18. NASRA MINA 06/05/2020 3:55:32 PM > 115/69, 64, 100%2L NC, 18. LEOPOLDONASRA 06/05/2020 4:00:09 PM > 115/71, 60, 100% 2L NC, 18. ROBIN MINAISSA 06/05/2020 4:05:35 PM > 114/74, 71, 100% 2L NC, 18. LEOPOLDONASRA 06/05/2020 4:10:45 PM > 122/74, 64, 100% 2L NC, 18. NASRA MINA 06/05/2020 4:15:32 PM > 111/76, 59, 100% 2L NC, 18. NASRA MINA 06/05/2020 4:20:41 PM > 113/75, 74, 99% 2L NC, 18. LEOPOLDONASRA 06/05/2020 4:25:03 PM > 127/88, 76, 100% RA, 18. LEOPOLDONASRA 06/05/2020 4:35:43 PM > POST PROCEDURE 121/72, 68, 99% RA, 18. NOTES MEDICATIONS DRAWN UP BY Roshni RN. Fiordaliza MINA RN VERFIED CORRECT MEDICATION AND DOSE. MEDICATIONS REVERIFIED DURING TIME OUT BY DR. CARIAS PRIOR TO PROCEDURE. COMPLETION OF PROCEDURE APPOINTMENT: POST PAIN 05/31, DRESSING SITE DRY AND INTACT, IV DISCONTINUED, SITE CLEAR, CATHETER INTACT, GAIT WHEELCHAIR DUE TO IV SEDATION, TEACHING COMPLETED, PATIENT ACKNOWLEDGES UNDERSTANDING YES PATIENT GIVEN POST PROCEDURE INSTRUCTIONS, COVID HANDOUT AND PAIN DIARY, INSTRUCTIONS REVIEWED WITH PATIENT AND FATHER, PRIOR TO DISCHARGE., PROCEDURE APPOINTMENT COMPLETED AT BY: Fiordaliza MINA RN AT 1627. PRE PROCEDURE DIAGNOSIS 1. PELVIC PAIN. 2. PELVIC NEURALGIA. 3. COCCYDYNIA POST PROCEDURE DIAGNOSIS 1. PELVIC PAIN. 2. PELVIC NEURALGIA. 3. COCCYDYNIA PROCEDURE GANGLION IMPAR BLOCK WITH FLUOROSCOPIC GUIDANCE SURGEON DR. ION CARIAS FINISHER POLISHER NONE ANESTHESIA LOCAL PRE PROCEDURE NOTE THE PATIENT HAS BEEN SUFFERING FROM PELVIC PAIN. WE HAVE USED MEDICATIONS AND OTHER MODALITIES AND THE PAIN HAS PERSISTED. WE DISCUSSED THE RISK, BENEFITS AND ALTERNATIVES ASSOCIATED WITH THE PROCEDURE .THE PATIENT DENIES UNEXPLAINABLE WEIGHT LOSS, FEVER, CHILLS OR NEW CHANGES IN URINARY OR BOWEL CONTROL. DESCRIPTION OF PROCEDURE AFTER CONSENT WAS REVIEWED WITH THE PATIENT, WE TOOK THE PATIENT TO THE PROCEDURE ROOM AND PLACED PATIENT IN THE PRONE POSITION. A TIMEOUT WAS PERFORMED WHERE THE CONSENTED SITE WAS VERIFIED WITH EVERYONE IN THE ROOM. LUMBOSACRAL AREA WAS CLEANED WITH BETADINE SOLUTION AND DRAPED ASEPTICALLY. THE PROCEDURE WAS DONE UNDER STERILE CONDITIONS. THE SACRAL AREA WAS IDENTIFIED UNDER FLUOROSCOPY. THEN THE SACROCOCCYGEAL LIGAMENT WAS IDENTIFIED USING AP AND LATERAL VIEWS. I CONFIRMED AGAIN THE SITE OF THE TARGET. THEN, USING A 22-GAUGE NEEDLE, WE ADVANCED THROUGH THE LIGAMENT SLOWLY UNTIL THE ANTERIOR BORDER OF THE LIGAMENT WAS REACHED. THE NEEDLE WAS ADVANCED SLOWLY WITH A LOSS OF RESISTANCE TECHNIQUE AND MULTIPLE LATERAL VIEWS. ISOVUE-M DYE 30%, 0.25 ML, WAS INJECTED SHOWING ADEQUATE SPREAD OF THE DYE. THEN A SOLUTION OF 60 ML OF BUPIVACAINE 0.125% WITH KENALOG 40 MG WAS INJECTED. THERE WAS NO EVIDENCE OF VISCERAL OR BLADDER PUNCTURE. THERE WAS NO EVIDENCE OF PARESTHESIA OR VASCULAR UPTAKE. THE PATIENT WAS SEND TO THE RECOVERY ROOM. THERE WERE NO COMPLICATIONS. EBL LESS THAN 5 ML. FLUOROSCOPY TIME WAS 49 SECONDS. THE PATIENT RECEIVED VERSED 2 MG AND FENTANYL 200 MCG IV IN DIVIDED DOSES. FACE TO FACE START TIME: 1547 FACE TO FACE END TIME: 1622 TOTAL FACE TO FACE TIME: 35 MINUTES POST PROCEDURE NOTE THE PATIENT WILL BE SEEN IN A FOLLOW UP IN THE NEXT FEW WEEKS. I AM LOOKING FOR LONG LASTING PAIN RELIEF FOR THE PATIENT WITH THIS INJECTION. INSTRUCTIONS WERE GIVEN, QUESTIONS WERE ANSWERED, AND THE PATIENT EXPRESSED UNDERSTANDING AND AGREES WITH THE PLAN. I, AD RODRIGUES, DOCUMENTED THE ABOVE INFORMATION ACTING A SCRIBE FOR DR. CARIAS. 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 IT IS NOT A COPY OF THE [facility] PROGRESS NOTE. MTDD
== END ==
LOC: M PAIN 14:00
PROVIDERS: ATTEND Anesthesiology
DX: R10.2 Pelvic and perineal pain (principal); M53.3 Sacrococcygeal disorders, not elsewhere classified; M79.7 Fibromyalgia; Z88.5 Allergy status to narcotic agent; Z88.8 Allergy status to other drugs, medicaments and biological substances; Z79.899 Other long term (current) drug therapy
CPT/HCPCS: 64999; 77002; 99152; 99153; J1200; J3301; Q9967

== ENCOUNTER → 2020-06-21 | Outpatient (CLI) | payer BC ==
[~2020-06-21] MED LIST changes: -BUPIVACAINE HCL 0.25% 30ML VIAL As Ordered ONE; -ISOVUE-M 300 61% 15ML VIAL As Ordered ONE; -LIDOCAINE 1% SDV 30ML VIAL As Ordered ONE; -TRIAMCINOLONE ACETONIDE SUSP 40 MG/ML VIAL (J3301) As Ordered ONE; -diphenhydrAMINE 50MG/ML VIAL (J1200) As Ordered ONE
--- NOTE | 2020-06-27 05:31 | ECWPNPC ---
PATIENT NAME: HOLLIE SEXTON : 1985 GENDER: FEMALE VISIT DATE: 06/21/2020 DISCHARGE DATE: 06/21/20 1404 VISIT LOCKED DATE TIME: PHYSICIAN: MING HENDERSON RESOURCE: MING HENDERSON REASON FOR APPOINTMENT 1. POST GANGLION IMPAR BLOCK HISTORY OF PRESENT ILLNESS GENERAL: [id number] FEMALE IN FOR POST GADOLINIUM IMPAR BLOCK FOLLOW-UP. SHE FEELS THE PROCEDURE WAS SUCCESSFUL FURTHER STATING CONTINUES TO HELP HER TODAY. SHE RATES HER PAIN CURRENTLY AT A FOURTH 10 AND DESCRIBES IT SHARP. FALL RISK SCREENING: SCREENING : NO FALLS REPORTED IN THE LAST YEAR. PAIN SCREENING: PATIENT HAS A COMPLAINT OF ACUTE OR CHRONIC PAIN :YES LOCATION OF PAIN:ABDOMEN PELVIS INTENSITY OF PAIN (SCALE OF 1 TO 10):4 WHAT DOES YOUR PAIN FEEL LIKE:SHARP DURATION:CONTINOUS, CONSTANT PAIN IS INCREASED BY:ACTIVITIES, PROLONGED STANDING PAIN IS DECREASED BY:USE OF PAIN MEDICATIONS NURSING NOTE: -. PAIN CENTER INTAKE QUESTIONS: DO YOU HAVE A HISTORY OF MRSA? :NO DO YOU TAKE A BLOOD THINNERS? :NO DO YOU HAVE ANY BLEEDING DISORDERS? :NO ANY NEW NUMBNESS OR WEAKNESS IN YOUR LEGS OR ARMS? :NO ANY PACEMAKER,DEFIBRILLATOR, OR DORSAL COLUMN STIMULATOR? :NO DO YOU HAVE ANY RASHES OR OPEN SORES? :YES BURNED RIGHT FOREARM ON WOODSTOVE ARE YOU ALLERGIC TO IV DYE? :NO ARE YOU DIABETIC? :NO ANY NEW PROBLEMS WITH YOUR MEDICATIONS? :NO HAVE YOU RECEIVED A VACCINE IN THE PAST 30 DAYS? :NO DO YOU PLAN TO RECEIVE A VACCINE IN THE NEXT 21 DAYS? :NO DO YOU NEED ANY PRESCRIPTION? :NO DO YOU TAKE ANY IMMUNOSUPPRESSIVE MEDICATIONS? :NO DO YOU HAVE ANY KIDNEY OR LIVER DISEASE? :NO IS THERE A CHANCE YOU COULD BE ? :NO ARE YOU BREAST FEEDING? :NO CURRENT MEDICATIONS TAKING MULTIVITAMIN ADULT - TABLET ORALLY TAKING PROVERA 10 MG TABLET 1 TABLET WITH FOOD ORALLY ONCE A DAY TAKING TRAMADOL HCL 50 MG TABLET 1 TABLET NEEDED ORALLY ONCE A DAY, NOTES: NOT RECENTLY TAKING MELOXICAM 15 MG TABLET 1 TABLET ORALLY ONCE A DAY NEEDED, NOTES: NOT RECENTLY TAKING METHYLPHENIDATE HCL ER 18 MG TABLET EXTENDED RELEASE (SCHEDULE II DRUG) TAKE TWO TABLETS BY MOUTH EVERY MORNING MAXIMUM DAILY DOSE 2 ORAL TAKING DULOXETINE HCL 60 MG CAPSULE DELAYED RELEASE PARTICLES TAKE ONE CAPSULE BY MOUTH IN THE EVENING ORAL TAKING GABAPENTIN 400 MG CAPSULE 1 CAPSULE ORALLY ONCE A DAY TAKING KETOCONAZOLE 2 % SHAMPOO 1 APPLICATION EXTERNALLY 2-3 TIMES PER WEEK SHAMPOO SCALP, NOTES: NONE RECENT NOT-TAKING CONCERTA 1 TABLET IN THE MORNING ORALLY DAILY NOT-TAKING GABAPENTIN 100 MG CAPSULE 1 CAPSULE ORALLY ONCE A DAY NOT-TAKING METHYLPHENIDATE 8.6 MG TABLET EXTENDED RELEASE DISINTEGRATING 1 TABLET IN THE MORNING ORALLY TID NOT-TAKING NORETHINDRONE 0.35 MG TABLET 1 TABLET ORALLY ONCE A DAY NOT-TAKING VITAMIN D 25 MCG (1000 UT) TABLET 1 TABLET ORALLY ONCE A DAY NOT-TAKING IRON 325 (65 FE) MG TABLET 1 TABLET ORALLY ONCE A DAY NOT-TAKING CLINDAMYCIN PHOSPHATE 1 % SWAB 1 APPLICATION EXTERNALLY TWICE DAILY TO ACNE PRONE AREAS ON FACE AND BACK NOT-TAKING DEBLITANE 0.35 MG TABLET TAKE ONE TABLET BY MOUTH EVERY DAY ORAL , NOTES: DUPLICATE NOT-TAKING DICLOFENAC SODIUM 75 MG TABLET DELAYED RELEASE 1 TABLET WITH FOOD OR MILK ORALLY TWICE A DAY MEDICATION LIST REVIEWED AND RECONCILED WITH THE PATIENT PAST MEDICAL HISTORY 4TH DEGREE VAGINAL TEAR FIBROMYALGIA CHRONIC PAIN ALLERGIES MORPHINE SULFATE: HIVES - ALLERGY VICODIN: ANAPHYLAXIS - ALLERGY DILAUDID: HIVES - ALLERGY MODAFINIL: HIVES - ALLERGY SOCIAL HISTORY GENERAL: TOBACCO USE ARE YOU A: NEVER SMOKER LATEX QUESTIONNAIRE LATEX ALLERGY : HAVE YOU EVER DEVELOPED ANY TYPE OF REACTION AFTER HANDLING LATEX PRODUCTS SUCH RUBBER GLOVES, CONDOMS, DIAPHRAGMS, BALLOONS, SOCKS, OR UNDERWEAR?NO LATEX ALLERGY : HAVE YOU EVER DEVELOPED ANY TYPE OF REACTION DURING OR AFTER DENTAL APPOINTMENT, VAGINAL/RECTAL EXAMINATION, SURGICAL PROCEDURE, OR ANY OTHER EXPOSURE?NO LATEX RISK : HAVE YOU EVER HAD ANY DIFFICULTY BREATHING OR HIVES AFTER EATING OR HANDLING ANY FRUITS, OR VEGETABLES; SUCH KIWI, BANANAS, STONE FRUITS, OR CHESTNUTSNO LATEX RISK : DO YOU HAVE A PREVIOUS PERSONAL HISTORY OF MORE THAN NINE SURGERIES, SPINA BIFIDA, OR REPEATED CATHERIZATIONS? NO LATEX RISK : ARE YOU FREQUENTLY EXPOSED TO LATEX PRODUCTS IN YOUR OCCUPATION?NO DATE ASKED : 06/21/2020 ALCOHOL USE: NO. LUNG CANCER SCREENING SMOKING STATUS:NON SMOKER ALCOHOL SCREENING DID YOU HAVE A DRINK CONTAINING ALCOHOL IN THE PAST YEAR?YES HOW OFTEN DID YOU HAVE A DRINK CONTAINING ALCOHOL IN THE PAST YEAR?MONTHLY OR LESS (1 POINT) POINTS1 INTERPRETATIONNEGATIVE RECREATIONAL DRUG USE DRUG USE?NO CAFFEINE CAFFEINE USE?NO LANGUAGE TURKISH. 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 MARITAL STATUS: . OTHERS AT HOME: SPOUSE, CHILD. - HAS THE PATIENT BEEN EDUCATED REGARDING HIS/HER PLAN OF CARE?YES HAS THE PATIENT BEEN EDUCATED REGARDING PAIN, THE RISK FOR PAIN, THE IMPORTANCE OF EFFECTIVE PAIN MANAGEMENT, AND THE PAIN ASSESSMENT PROCESS?YES ADVANCE DIRECTIVE ADVANCE DIRECTIVE DISCUSSED WITH PATIENT:YES HCP - CB () REVIEW OF SYSTEMS CONSTITUTIONAL: ANY RECENT FEVER NO . CHILLS NO . WEIGHT CHANGE OF UNKNOWN REASONS NO . GASTROENTEROLOGY: NEW UNEXPLAINABLE CHANGES IN BOWEL CONTROL NO . CONSTIPATION NO . GENITOURINARY: ANY NEW CHANGE IN BLADDER CONTROL? NO . NEUROLOGY: NEW ONSET DIZZINESS OR NEUROLOGICAL CHANGES NOT MENTIONED NO . NEW NUMBNESS OR PAIN PATTERNS NOT MENTIONED AND PERTINENT TO TODAY'S VISIT NO . CARDIOLOGY: NEW CHEST PRESSURE NO . PATIENT DENIES NO . RESPIRATORY: UNEXPLAINABLE COUGH NO . NEW SHORTNESS OF BREATH NO . VITAL SIGNS WT 214.4 LBS, HT 66 IN, BMI 34.60 INDEX, BP 100/67 MM HG, HR 102 /MIN, RR 18 /MIN, TEMP 98.0 F, OXYGEN SAT % 97%, SAFE IN ENV? (Y/N) YES, NA INITIALS TX 13:35JAMES ANG MA. EXAMINATION GENERAL EXAMINATION: GENERALNO ACUTE DISTRESS, WELL NOURISHED AND HYDRATED. PSYCHAPPROPRIATE MOOD AND AFFECT . LUNGS:CLEAR TO AUSCULTATION BILATERALLY, NO WHEEZES, RHONCHI, RALES. HEART:NO MURMURS, REGULAR RATE AND RHYTHM. ASSESSMENTS OTHER CHRONIC PAIN - G89.29 (PRIMARY) COCCYDYNIA - M53.3 TREATMENT OTHER CHRONIC PAIN PAIN PROCEDURE LOGDATE OF PROCEDURE06/05/20PROCEDURE:GANGLION IMPAR BLOCKAMOUNT OF PRE SEDATEBENADRYL 50MG, VERSED 2MG, FENTANYL 200 MCGRESULT:SUCCESSFUL NOTES: 34-YEAR-OLD FEMALE IN FOR CHRONIC PAIN FOLLOW-UP. GIVEN PRESENTING SYMPTOMS RECOMMENDED PATIENT FOLLOW-UP WITH DR. CARIAS TO DISCUSS POTENTIAL PROCEDURES THAT MAY ALLEVIATE HER SYMPTOMS FURTHER. PATIENT HAS EXPRESSED UNDERSTANDING OF AND WAS IN AGREEMENT WITH TREATMENT PLAN. GIVEN TIME TO ASK QUESTIONS AND EXPRESS CONCERNS. PROCEDURE CODES FA211 ESTABILISHED PATIENT [facility] CHARGE DISPOSITION & COMMUNICATION FOLLOW UP WITH DR. Jarquin (REASON: COCCYDYNIA ) ELECTRONICALLY SIGNED BY ANDREAS SHOEMAKER ON 06/26/2020 AT 08:12 AM EST DISCLAIMER : THIS IS A VISIT SUMMARY EXTRACTED FROM THE [employer] CHART. IT IS NOT A COPY OF THE [employer] PROGRESS NOTE. AMARIS
== END ==
LOC: M PAIN 13:30
PROVIDERS: ATTEND Family Medicine
DX: G89.29 Other chronic pain (principal); M53.3 Sacrococcygeal disorders, not elsewhere classified; M79.7 Fibromyalgia; Z79.899 Other long term (current) drug therapy; Z88.5 Allergy status to narcotic agent; Z88.8 Allergy status to other drugs, medicaments and biological substances

== ENCOUNTER → 2020-08-03 | Outpatient (CLI) | payer BC ==
--- NOTE | 2020-08-04 23:03 | ECWPNPC ---
PATIENT NAME: HOLLIE SEXTON : 1985 GENDER: FEMALE VISIT DATE: 08/03/2020 DISCHARGE DATE: 08/03/20 1349 VISIT LOCKED DATE TIME: PHYSICIAN: ION CARIAS MD RESOURCE: ION CARIAS MD REASON FOR APPOINTMENT 1. FOLLOW UP HISTORY OF PRESENT ILLNESS GENERAL: 34-YEAR-OLD FEMALE PATIENT WITH A HISTORY OF CHRONIC LOW BACK PAIN. THE PATIENT DESCRIBES THE PAIN SEVERE, ACHING AND BURNING WITH A PAIN SCORE RANGING FROM 7-10/10. SHE HAS DIFFICULTY MOVING. SHE HAS HAD SACROILIAC JOINT BLOCKS IN THE PAST WHICH HAVE HELPED HER FUNCTIONALITY AND REDUCED HER PAIN FOR A LONG PERIOD OF TIME. FALL RISK SCREENING: SCREENING : NO FALLS REPORTED IN THE LAST YEAR. PAIN SCREENING: PATIENT HAS A COMPLAINT OF ACUTE OR CHRONIC PAIN :YES LOCATION OF PAIN:LOW BACK, LEG(S) INTENSITY OF PAIN (SCALE OF 1 TO 10):8 WHAT DOES YOUR PAIN FEEL LIKE:ACHING, SHOOTING DURATION:INTERMITTENT PAIN IS INCREASED BY:ACTIVITIES PAIN IS DECREASED BY:USE OF PAIN MEDICATIONS NURSING NOTE: -. PAIN CENTER INTAKE QUESTIONS: DO YOU HAVE A HISTORY OF MRSA? :NO DO YOU TAKE A BLOOD THINNERS? :NO DO YOU HAVE ANY BLEEDING DISORDERS? :NO ANY NEW NUMBNESS OR WEAKNESS IN YOUR LEGS OR ARMS? :NO ANY PACEMAKER,DEFIBRILLATOR, OR DORSAL COLUMN STIMULATOR? :NO DO YOU HAVE ANY RASHES OR OPEN SORES? :NO ARE YOU ALLERGIC TO IV DYE? :NO ARE YOU DIABETIC? :NO ANY NEW PROBLEMS WITH YOUR MEDICATIONS? :NO HAVE YOU RECEIVED A VACCINE IN THE PAST 30 DAYS? :NO DO YOU PLAN TO RECEIVE A VACCINE IN THE NEXT 21 DAYS? :NO DO YOU NEED ANY PRESCRIPTION? :YES DO YOU TAKE ANY IMMUNOSUPPRESSIVE MEDICATIONS? :NO DO YOU HAVE ANY KIDNEY OR LIVER DISEASE? :NO IS THERE A CHANCE YOU COULD BE ? :NO ARE YOU BREAST FEEDING? :NO CURRENT MEDICATIONS TAKING TRAMADOL HCL 50 MG TABLET 1 TABLET NEEDED ORALLY ONCE A DAY TAKING MELOXICAM 15 MG TABLET 1 TABLET ORALLY ONCE A DAY NEEDED TAKING METHYLPHENIDATE HCL ER 18 MG TABLET EXTENDED RELEASE (SCHEDULE II DRUG) TAKE THREE TABLETS BY MOUTH EVERY MORNING MAXIMUM DAILY DOSE 3 ORAL TAKING DULOXETINE HCL 60 MG CAPSULE DELAYED RELEASE PARTICLES TAKE ONE CAPSULE BY MOUTH IN THE EVENING ORAL TAKING GABAPENTIN 400 MG CAPSULE 1 CAPSULE ORALLY ONCE A DAY TAKING KETOCONAZOLE 2 % SHAMPOO 1 APPLICATION EXTERNALLY 2-3 TIMES PER WEEK SHAMPOO SCALP, NOTES: NONE RECENT TAKING WELLBUTRIN XL 150 MG TABLET EXTENDED RELEASE 24 HOUR 1 TABLET IN THE MORNING ORALLY BID, NOTES: FIRST WEEK, ONE TAB ONCE A DAY. THEN BID. NOT-TAKING MULTIVITAMIN ADULT - TABLET ORALLY ONCE A DAY NOT-TAKING PROVERA 10 MG TABLET 1 TABLET WITH FOOD ORALLY ONCE A DAY NOT-TAKING CONCERTA 1 TABLET IN THE MORNING ORALLY DAILY NOT-TAKING GABAPENTIN 100 MG CAPSULE 1 CAPSULE ORALLY ONCE A DAY NOT-TAKING METHYLPHENIDATE 8.6 MG TABLET EXTENDED RELEASE DISINTEGRATING 1 TABLET IN THE MORNING ORALLY TID NOT-TAKING NORETHINDRONE 0.35 MG TABLET 1 TABLET ORALLY ONCE A DAY NOT-TAKING VITAMIN D 25 MCG (1000 UT) TABLET 1 TABLET ORALLY ONCE A DAY NOT-TAKING IRON 325 (65 FE) MG TABLET 1 TABLET ORALLY ONCE A DAY NOT-TAKING CLINDAMYCIN PHOSPHATE 1 % SWAB 1 APPLICATION EXTERNALLY TWICE DAILY TO ACNE PRONE AREAS ON FACE AND BACK NOT-TAKING DEBLITANE 0.35 MG TABLET TAKE ONE TABLET BY MOUTH EVERY DAY ORAL , NOTES: DUPLICATE NOT-TAKING DICLOFENAC SODIUM 75 MG TABLET DELAYED RELEASE 1 TABLET WITH FOOD OR MILK ORALLY TWICE A DAY MEDICATION LIST REVIEWED AND RECONCILED WITH THE PATIENT PAST MEDICAL HISTORY 4TH DEGREE VAGINAL TEAR FIBROMYALGIA CHRONIC PELVIC PAIN ALLERGIES MORPHINE SULFATE: HIVES - ALLERGY VICODIN: ANAPHYLAXIS - ALLERGY DILAUDID: HIVES - ALLERGY MODAFINIL: HIVES - ALLERGY SOCIAL HISTORY GENERAL: TOBACCO USE ARE YOU A: NEVER SMOKER LATEX QUESTIONNAIRE LATEX ALLERGY : HAVE YOU EVER DEVELOPED ANY TYPE OF REACTION AFTER HANDLING LATEX PRODUCTS SUCH RUBBER GLOVES, CONDOMS, DIAPHRAGMS, BALLOONS, SOCKS, OR UNDERWEAR?NO LATEX ALLERGY : HAVE YOU EVER DEVELOPED ANY TYPE OF REACTION DURING OR AFTER DENTAL APPOINTMENT, VAGINAL/RECTAL EXAMINATION, SURGICAL PROCEDURE, OR ANY OTHER EXPOSURE?NO DATE ASKED : 06/21/2020 LATEX RISK : HAVE YOU EVER HAD ANY DIFFICULTY BREATHING OR HIVES AFTER EATING OR HANDLING ANY FRUITS, OR VEGETABLES; SUCH KIWI, BANANAS, STONE FRUITS, OR CHESTNUTSNO LATEX RISK : DO YOU HAVE A PREVIOUS PERSONAL HISTORY OF MORE THAN NINE SURGERIES, SPINA BIFIDA, OR REPEATED CATHERIZATIONS? NO LATEX RISK : ARE YOU FREQUENTLY EXPOSED TO LATEX PRODUCTS IN YOUR OCCUPATION?NO ALCOHOL SCREENING DID YOU HAVE A DRINK CONTAINING ALCOHOL IN THE PAST YEAR?YES HOW OFTEN DID YOU HAVE A DRINK CONTAINING ALCOHOL IN THE PAST YEAR?MONTHLY OR LESS (1 POINT) POINTS1 INTERPRETATIONNEGATIVE RECREATIONAL DRUG USE DRUG USE?NO CAFFEINE CAFFEINE USE?NO LANGUAGE FAROESE. 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 MARITAL STATUS: . OTHERS AT HOME: SPOUSE, CHILD. - HAS THE PATIENT BEEN EDUCATED REGARDING HIS/HER PLAN OF CARE?YES HAS THE PATIENT BEEN EDUCATED REGARDING PAIN, THE RISK FOR PAIN, THE IMPORTANCE OF EFFECTIVE PAIN MANAGEMENT, AND THE PAIN ASSESSMENT PROCESS?YES ADVANCE DIRECTIVE ADVANCE DIRECTIVE DISCUSSED WITH PATIENT:YES HCP - CB () REVIEW OF SYSTEMS CONSTITUTIONAL: ANY RECENT FEVER NO . CHILLS NO . WEIGHT CHANGE OF UNKNOWN REASONS NO . GASTROENTEROLOGY: NEW UNEXPLAINABLE CHANGES IN BOWEL CONTROL NO . CONSTIPATION NO . GENITOURINARY: ANY NEW CHANGE IN BLADDER CONTROL? NO . NEUROLOGY: NEW ONSET DIZZINESS OR NEUROLOGICAL CHANGES NOT MENTIONED NO . NEW NUMBNESS OR PAIN PATTERNS NOT MENTIONED AND PERTINENT TO TODAY'S VISIT NO . CARDIOLOGY: NEW CHEST PRESSURE NO . PATIENT DENIES NO . RESPIRATORY: UNEXPLAINABLE COUGH NO . NEW SHORTNESS OF BREATH NO . VITAL SIGNS WT 210 LBS, HT 66 IN, BMI 33.89 INDEX, BP 99/60 MM HG, HR 85 /MIN, RR 16 /MIN, TEMP 97.3 F, OXYGEN SAT % 98%, SAFE IN ENV? (Y/N) YES, NA INITIALS 57029/ 1322 REVIEWED. Sherlyn RICH RN. EXAMINATION GENERAL: THE PATIENT IS ALERT, ORIENTED TIMES THREE AND COOPERATIVE. LUNGS ARE CLEAR TO AUSCULTATION. HEART SHOWS REGULAR RHYTHM, NO MURMURS AND NO GALLOPS. THERE IS TENDERNESS OVER THE SACROILIAC JOINT. MRI OF THE LUMBOSACRAL SPINE DATED 09/29/2018 SHOWS FACET ARTHROPATHY CHANGES AND BULGING DISCS. ASSESSMENTS SACROILIITIS - M46.1 (PRIMARY) SACROILIAC JOINT DYSFUNCTION - M53.3 TREATMENT SACROILIITIS CLINICAL NOTES: I DISCUSSED ALTERNATIVES WITH MS. SEXTON. I AM GOING TO REQUEST AUTHORIZATION FOR BILATERAL SACROILIAC JOINT BLOCK, BOOK AFTER APPROVED. THE PATIENT IS GOING TO BE GETTING AN OPERATION DONE IN [place] TO SECURE HER SACROILIAC JOINTS. THEY WILL DO THIS TO HELP HER WITH HER PAIN AND FUNCTIONALITY. THE PATIENT REPORTS UNDERSTANDING AND AGREES WITH THE PLAN. I, AD RODRIGUES, DOCUMENTED THE ABOVE INFORMATION ACTING A SCRIBE FOR DR. CARIAS. I HAVE REVIEWED THE ABOVE DOCUMENT, WRITTEN BY AD RODRIGUES, ELECTRIC DISTRIBUTION CHECKER, AND I VERIFY THAT IT IS ACCURATE. PROCEDURE CODES FA211 ESTABILISHED PATIENT [facility] CHARGE [id number] OFFICE/OUTPATIENT VISIT EST DISPOSITION & COMMUNICATION FOLLOW UP REQUEST AUTH FOR SACROILIAC JOINT BLOCK (REASON: REQUEST AUTH FOR SACROILIAC JOINT BLOCK) ELECTRONICALLY SIGNED BY ION CARIAS MD, MD ON 08/04/2020 AT 12:32 PM EDT DISCLAIMER : THIS IS A VISIT SUMMARY EXTRACTED FROM THE [employer] CHART. IT IS NOT A COPY OF THE [employer] PROGRESS NOTE. MTDFred
== END ==
LOC: M PAIN 12:45
PROVIDERS: ATTEND Anesthesiology
DX: M46.1 Sacroiliitis, not elsewhere classified (principal); M53.3 Sacrococcygeal disorders, not elsewhere classified; M79.7 Fibromyalgia; R10.2 Pelvic and perineal pain; Z79.891 Long term (current) use of opiate analgesic; Z79.899 Other long term (current) drug therapy; Z88.5 Allergy status to narcotic agent; Z88.8 Allergy status to other drugs, medicaments and biological substances

== ENCOUNTER → 2020-08-03 | Outpatient (CLI) | payer BC | LOC: M LABSMTC 14:03 | PROVIDERS: ATTEND Anesthesiology | DX: Z11.52 Encounter for screening for COVID-19 (principal) ==

== ENCOUNTER → 2020-08-08 | Outpatient (CLI) | payer BC ==
[~2020-08-08] MED LIST changes: +BUPIVACAINE HCL 0.25% 30ML VIAL As Ordered ONE; +ISOVUE-M 300 61% 15ML VIAL As Ordered ONE; +LIDOCAINE 1% SDV 30ML VIAL As Ordered ONE; +TRIAMCINOLONE ACETONIDE SUSP 40 MG/ML VIAL (J3301) As Ordered ONE; +diazePAM 5MG TABLET As Ordered ONE; +oxyCODONE 5MG TAB As Ordered ONE
--- NOTE | 2020-08-08 15:29 | REP ---
INDICATION: BILATERAL SIJ. COMPARISON: None. TECHNIQUE: Two views. 15.7 seconds of fluoroscopy time is reported. FINDINGS: A sequence of 2 last image hold fluoroscopically obtained spot radiographs document needle position and contrast injection associated with bilateral SI joint injection procedure. IMPRESSION: Procedural imaging. <Electronically signed by Jame Martinez > 08/08/20 [id number]
--- NOTE | 2020-08-15 00:48 | ECWPNPC ---
PATIENT NAME: HOLLIE SEXTON : 1985 GENDER: FEMALE VISIT DATE: 08/08/2020 DISCHARGE DATE: 08/08/201426 VISIT LOCKED DATE TIME: PHYSICIAN: ION CARIAS MD RESOURCE: ION CARIAS MD REASON FOR APPOINTMENT 1. BILATERAL SACROILIAC JOINT BLOCK HISTORY OF PRESENT ILLNESS GENERAL: -. FALL RISK SCREENING: SCREENING : TWO OR MORE FALLS WITHOUT INJURY IN THE PAST YEAR. PAIN SCREENING: PATIENT HAS A COMPLAINT OF ACUTE OR CHRONIC PAIN :YES LOCATION OF PAIN:LOW BACK, LEFT HIP, RIGHT HIP, LEG(S) INTENSITY OF PAIN (SCALE OF 1 TO 10):6 WHAT DOES YOUR PAIN FEEL LIKE:ACHING, TENDER, THROBBING, SHOOTING DURATION:CONTINOUS, INTERMITTENT, AWAKENS FROM SLEEP PAIN IS INCREASED BY:ACTIVITIES, PROLONGED STANDING, OTHERS WALKING PAIN IS DECREASED BY:OTHERS NOTHING HELPS TO RELIEVE THIS PAIN PAIN HAS INTERFERED WITH THE FOLLOWING: ALL ADLS PLAN/GOALS/TREATMENT/INTERVENTION/FOLLOW UP:SEE PLAN NURSING NOTE: -. PAIN CENTER INTAKE QUESTIONS: DO YOU HAVE A HISTORY OF MRSA? :NO DO YOU TAKE A BLOOD THINNERS? :NO DO YOU HAVE ANY BLEEDING DISORDERS? :NO ANY NEW NUMBNESS OR WEAKNESS IN YOUR LEGS OR ARMS? :NO ANY PACEMAKER,DEFIBRILLATOR, OR DORSAL COLUMN STIMULATOR? :NO DO YOU HAVE ANY RASHES OR OPEN SORES? :NO ARE YOU ALLERGIC TO IV DYE? :NO ARE YOU DIABETIC? :NO ANY NEW PROBLEMS WITH YOUR MEDICATIONS? :NO HAVE YOU RECEIVED A VACCINE IN THE PAST 30 DAYS? :NO DO YOU PLAN TO RECEIVE A VACCINE IN THE NEXT 21 DAYS? :NO DO YOU TAKE ANY IMMUNOSUPPRESSIVE MEDICATIONS? :NO ANY HISTORY OF SEIZURES? :NO ANY HISTORY OF CARDIAC ISSUES OR EVENTS? :NO DO YOU HAVE ANY KIDNEY OR LIVER DISEASE? :NO DO YOU HAVE SLEEP APNEA? :NO ANY RECENT HEAD INJURY? :NO DO YOU HAVE ANY NEW INFECTIONS? :NO IS THERE A CHANCE YOU COULD BE ? :NO ARE YOU BREAST FEEDING? :NO WHEN DID YOU LAST EAT? : 08/08/20 0000 WHEN DID YOU LAST DRINK? : 08/08/20 WHAT DID YOU LAST DRINK? : [place] NAME OF PERSON DRIVING YOU HOME? : CLARICE (FATHER) DO YOU HAVE ANY OTHER QUESTIONS OR CONCERNS? : NO CURRENT MEDICATIONS TAKING TRAMADOL HCL 50 MG TABLET 1 TABLET NEEDED ORALLY ONCE A DAY, NOTES: 08/05/20 TAKING MELOXICAM 15 MG TABLET 1 TABLET ORALLY ONCE A DAY NEEDED TAKING METHYLPHENIDATE HCL ER 18 MG TABLET EXTENDED RELEASE (SCHEDULE II DRUG) TAKE THREE TABLETS BY MOUTH EVERY MORNING MAXIMUM DAILY DOSE 3 ORAL TAKING DULOXETINE HCL 60 MG CAPSULE DELAYED RELEASE PARTICLES TAKE ONE CAPSULE BY MOUTH IN THE EVENING ORAL , NOTES: 08/07/20 TAKING GABAPENTIN 400 MG CAPSULE 1 CAPSULE ORALLY ONCE A DAY, NOTES: 08/07/20 TAKING KETOCONAZOLE 2 % SHAMPOO 1 APPLICATION EXTERNALLY 2-3 TIMES PER WEEK SHAMPOO SCALP, NOTES: NONE RECENT TAKING WELLBUTRIN XL 150 MG TABLET EXTENDED RELEASE 24 HOUR 1 TABLET IN THE MORNING ORALLY BID, NOTES: FIRST WEEK, ONE TAB ONCE A DAY. THEN BID. NOT-TAKING MULTIVITAMIN ADULT - TABLET ORALLY ONCE A DAY NOT-TAKING PROVERA 10 MG TABLET 1 TABLET WITH FOOD ORALLY ONCE A DAY NOT-TAKING CONCERTA 1 TABLET IN THE MORNING ORALLY DAILY NOT-TAKING GABAPENTIN 100 MG CAPSULE 1 CAPSULE ORALLY ONCE A DAY NOT-TAKING METHYLPHENIDATE 8.6 MG TABLET EXTENDED RELEASE DISINTEGRATING 1 TABLET IN THE MORNING ORALLY TID NOT-TAKING NORETHINDRONE 0.35 MG TABLET 1 TABLET ORALLY ONCE A DAY NOT-TAKING VITAMIN D 25 MCG (1000 UT) TABLET 1 TABLET ORALLY ONCE A DAY NOT-TAKING IRON 325 (65 FE) MG TABLET 1 TABLET ORALLY ONCE A DAY NOT-TAKING CLINDAMYCIN PHOSPHATE 1 % SWAB 1 APPLICATION EXTERNALLY TWICE DAILY TO ACNE PRONE AREAS ON FACE AND BACK NOT-TAKING DEBLITANE 0.35 MG TABLET TAKE ONE TABLET BY MOUTH EVERY DAY ORAL , NOTES: DUPLICATE NOT-TAKING DICLOFENAC SODIUM 75 MG TABLET DELAYED RELEASE 1 TABLET WITH FOOD OR MILK ORALLY TWICE A DAY DISCONTINUED BUPROPION HCL ER (XL) 150 MG TABLET EXTENDED RELEASE 24 HOUR 1 TABLET IN THE MORNING ORALLY BID MEDICATION LIST REVIEWED AND RECONCILED WITH THE PATIENT PAST MEDICAL HISTORY 4TH DEGREE VAGINAL TEAR FIBROMYALGIA CHRONIC PELVIC PAIN ALLERGIES MORPHINE SULFATE: HIVES - ALLERGY VICODIN: ANAPHYLAXIS - ALLERGY DILAUDID: HIVES - ALLERGY MODAFINIL: HIVES - ALLERGY SOCIAL HISTORY GENERAL: TOBACCO USE ARE YOU A: NEVER SMOKER LATEX QUESTIONNAIRE LATEX ALLERGY : HAVE YOU EVER DEVELOPED ANY TYPE OF REACTION AFTER HANDLING LATEX PRODUCTS SUCH RUBBER GLOVES, CONDOMS, DIAPHRAGMS, BALLOONS, SOCKS, OR UNDERWEAR?NO LATEX ALLERGY : HAVE YOU EVER DEVELOPED ANY TYPE OF REACTION DURING OR AFTER DENTAL APPOINTMENT, VAGINAL/RECTAL EXAMINATION, SURGICAL PROCEDURE, OR ANY OTHER EXPOSURE?NO DATE ASKED : 06/21/2020 LATEX RISK : HAVE YOU EVER HAD ANY DIFFICULTY BREATHING OR HIVES AFTER EATING OR HANDLING ANY FRUITS, OR VEGETABLES; SUCH KIWI, BANANAS, STONE FRUITS, OR CHESTNUTSNO LATEX RISK : DO YOU HAVE A PREVIOUS PERSONAL HISTORY OF MORE THAN NINE SURGERIES, SPINA BIFIDA, OR REPEATED CATHERIZATIONS? NO LATEX RISK : ARE YOU FREQUENTLY EXPOSED TO LATEX PRODUCTS IN YOUR OCCUPATION?NO ALCOHOL SCREENING DID YOU HAVE A DRINK CONTAINING ALCOHOL IN THE PAST YEAR?YES HOW OFTEN DID YOU HAVE A DRINK CONTAINING ALCOHOL IN THE PAST YEAR?MONTHLY OR LESS (1 POINT) POINTS1 INTERPRETATIONNEGATIVE RECREATIONAL DRUG USE DRUG USE?NO CAFFEINE CAFFEINE USE?NO LANGUAGE NIGERIAN. 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 MARITAL STATUS: . OTHERS AT HOME: SPOUSE, CHILD. - HAS THE PATIENT BEEN EDUCATED REGARDING HIS/HER PLAN OF CARE?YES HAS THE PATIENT BEEN EDUCATED REGARDING PAIN, THE RISK FOR PAIN, THE IMPORTANCE OF EFFECTIVE PAIN MANAGEMENT, AND THE PAIN ASSESSMENT PROCESS?YES ADVANCE DIRECTIVE ADVANCE DIRECTIVE DISCUSSED WITH PATIENT:YES HCP - CB () VITAL SIGNS WT 208.2 LBS, HT 66 IN, BMI 33.60 INDEX, BP 90/60 MM HG, HR 81 /MIN, RR 18 /MIN, TEMP 98 F, OXYGEN SAT % 98%, SAFE IN ENV? (Y/N) Y, NA INITIALS SC 12:15, REVIEWED BY: EM. EXAMINATION GENERAL: THE PATIENT IS ALERT, ORIENTED TIMES THREE AND COOPERATIVE. LUNGS ARE CLEAR TO AUSCULTATION. HEART SHOWS REGULAR RHYTHM, NO MURMURS AND NO GALLOPS. ASSESSMENTS SACROILIITIS, NOT ELSEWHERE CLASSIFIED - M46.1 (PRIMARY) TREATMENT SACROILIITIS, NOT ELSEWHERE CLASSIFIED [facility] FLUORO GUIDANCE (PAIN)[id number] MEDICATION: VALIUM TAB 5MG ORALLY (DIAZEPAM)JEFF FRANCISCO 08/08/2020 12:42:34 PM > VERIFIED MEÑO WADE 08/08/2020 12:48:16 PM > ADMINISTERED MEDICATION: OXYCODONE HCL TAB 5MG ORALLY MARYAM,JEFF 08/08/2020 12:42:47 PM > VERIFIED COBY WADELE 08/08/2020 12:48:40 PM > ADMINISTERED COMPLETION OF PROCEDURAL VISIT WHEN MEETS CRITERIAMEÑO WADE 08/08/2020 2:32:21 PM > 1430 CRITERIA MET OTHERS NOTES: 08/07/20 1614 PAT COMPLETED Fiordaliza MINA ELECTROLYSIS NEEDLE OPERATOR. PROCEDURES PAIN NURSING RECORD PROCEDURE IN ROOM 1325, PHYSICIAN IN ROOM 1340, START 1345, FINISH 1350, PHYSICIAN OUT OF ROOM 1353, OUT OF ROOM 1403, ECG NORMAL SINUS, PATIENT SHIELDED YES, SAFETY STRAP YES, PREP CHLOROPREP Krystle FRANCISCO RN, DRESSING TEGADERM DR. CARIAS LOC: COBY WADELE 08/08/2020 1:30:40 PM > , 1. ALERT, ORIENTED RESP: MAUROCOBYMEÑO 08/08/2020 1:30:43 PM > , 1. REGULAR, NO DYSPNEA COLOR: COBY WADELE 08/08/2020 1:30:47 PM > , 1. PINK SKIN: COBY WADELE 08/08/2020 1:30:52 PM > , 1. WARM, DRY POSITION: MAUROMEÑO GATICA 08/08/2020 1:30:57 PM > , 1. PRONE VITALS: COBY WADELE 08/08/2020 1:00:45 PM > 108/58-82-18-99% , MAUROMEÑO 08/08/2020 1:31:07 PM > 116/26-24-91-100% , MAUROMEÑO 08/08/2020 1:46:21 PM > 123/80-74-18-99% 08/08/2020 1425 119/58-72-18-98% NOTES Roshni SANTA RN COMPLETION OF PROCEDURE APPOINTMENT: POST PAIN 3 BILATERAL HIPS AND BIALTERAL LEGS, DRESSING SITE DRY AND INTACT MID BIALTERAL LOWER BACK, IV N/A, GAIT STEADY, TEACHING COMPLETED, PATIENT ACKNOWLEDGES UNDERSTANDING YES PATIENT VERBALIZES UNDERSTANDING OF POST PROCEDURE INSTRUCTIONS REVIEWED, PROCEDURE APPOINTMENT COMPLETED AT 1430 BY: Roshni SANTA RN PN SI PRE PROCEDURE DIAGNOSIS SACROILIITIS, SACROILIAC JOINT DYSFUNCTION POST PROCEDURE DIAGNOSIS SACROILIITIS, SACROILIAC JOINT DYSFUNCTION PROCEDURE BILATERAL SACROILIAC JOINT BLOCK SURGEON DR. ION CARIAS CARAMEL CUTTER HELPER NONE ANESTHESIA LOCAL PRE PROCEDURE NOTE THE PATIENT WITH HISTORY OF CHRONIC LOW BACK PAIN. I EVALUATED THE PATIENT AND REVIEWED THE CHART. I WENT OVER THE RISKS, ALTERNATIVES, AND BENEFITS ASSOCIATED WITH THIS PROCEDURE. THE PATIENT WOULD LIKE TO PROCEED AND GAVE CONSENT TO PERFORM THE PROCEDURE. THE PATIENT DENIES UNEXPLAINABLE WEIGHT LOSS, FEVER, CHILLS, OR NEW CHANGES IN URINARY OR BOWEL CONTROL. THE PATIENT IS COVID-19 NEGATIVE DESCRIPTION OF PROCEDURE THE PATIENT WAS BROUGHT TO THE PROCEDURE ROOM AND PLACED IN THE PRONE POSITION. THE LUMBOSACRAL AREA WAS CLEANED WITH CHLORAPREP SOLUTION AND DRAPED ASEPTICALLY. THE PROCEDURE WAS DONE UNDER STERILE CONDITIONS. A TIMEOUT WAS PERFORMED WHERE THE CONSENTED SITE WAS VERIFIED WITH EVERYONE IN THE ROOM. UNDER FLUOROSCOPIC GUIDANCE, THE TARGET POINT WAS SELECTED AT THE LOWER BORDER OF THE RIGHT AND LEFT SACROILIAC JOINT. TARGET POINT WAS SELECTED AFTER MEDIAL ROTATION AND TILT OF THE MAGNIFIER OR THE C-ARM. I CONFIRMED AGAIN THE SITE OF TARGET. LIDOCAINE 0.5% WAS USED TO NUMB THE SKIN AND THE SUBCUTANEOUS TISSUE BELOW IT. SPINAL NEEDLES, 22-GAUGE, WERE ADVANCED UNDER FLUOROSCOPIC GUIDANCE AND FOLLOWING PATIENT FEEDBACK UNTIL THE TARGETS WERE TOUCHED. THE POSITION OF THE NEEDLES WAS VERIFIED WITH AP AND OBLIQUE VIEWS. AFTER PROPER POSITION OF THE NEEDLES WAS ACHIEVED, ISOVUE-M DYE 30%, 0.1 ML, WAS INJECTED SHOWING ADEQUATE SPREAD OF THE DYE. KENALOG 20 MG WAS INJECTED AT EACH SITE. THEN, A SOLUTION OF 3.0 ML OF BUPIVACAINE 0.125% WAS USED TO FLUSH EACH NEEDLE. THE MEDICATIONS WERE VERIFIED WITH THE NURSE. THERE WAS NO EVIDENCE OF BLOOD, PARESTHESIA OR CEREBROSPINAL FLUID DURING THE PROCEDURE. THE PATIENT WAS SENT TO THE RECOVERY ROOM. THE PATIENT WAS MOVING THE EXTREMITIES AND DOING WELL. THERE WERE NO COMPLICATIONS DURING THE PROCEDURE. ESTIMATED BLOOD LOSS WAS LESS THAN 5 ML. FLUOROSCOPIC TIME WAS 15 SECONDS. POST PROCEDURE NOTE THE PROCEDURE DONE WAS DISCUSSED WITH THE PATIENT. THE PATIENT WILL BE SEEN IN A FOLLOW UP IN THE NEXT FEW WEEKS. I AM LOOKING FOR LONG LASTING PAIN RELIEF FOR THE PATIENT WITH THIS INTERVENTION. INSTRUCTIONS WERE GIVEN, QUESTIONS WERE ANSWERED, AND THE PATIENT EXPRESSED UNDERSTANDING AND AGREES WITH THE PLAN. I, AD RODRIGEUS, DOCUMENTED THE ABOVE INFORMATION ACTING A SCRIBE FOR DR. CARIAS. I HAVE REVIEWED THE ABOVE DOCUMENT, WRITTEN BY AD RODRIGUES ROVING WINDER, AND I VERIFY THAT IT IS ACCURATE PROCEDURE CODES 84995 INJECT SACROILIAC JOINT, MODIFIERS: 50 DISPOSITION & COMMUNICATION FOLLOW UP FOLLOW UP WITH ASSISTANT PROFESSOR OF GERMAN (REASON: POST BILATERAL SACOILIAC JOINT BLOCK) ELECTRONICALLY SIGNED BY ION CARIAS MD, MD ON 08/14/2020 AT 07:24 PM EDT DISCLAIMER : THIS IS A VISIT SUMMARY EXTRACTED FROM THE [email or web address] [employer] CHART. IT IS NOT A COPY OF THE [email or web address] PROGRESS NOTE. AMARIS
== END ==
LOC: M PAIN 12:00
PROVIDERS: ATTEND Anesthesiology
DX: M46.1 Sacroiliitis, not elsewhere classified (principal); M79.7 Fibromyalgia; R10.2 Pelvic and perineal pain; Z79.899 Other long term (current) drug therapy; Z88.5 Allergy status to narcotic agent; Z88.8 Allergy status to other drugs, medicaments and biological substances
CPT/HCPCS: G0260; J3301; Q9967

== ENCOUNTER → 2020-08-22 | Outpatient (CLI) | payer BC ==
[~2020-08-22] MED LIST changes: -BUPIVACAINE HCL 0.25% 30ML VIAL As Ordered ONE; -ISOVUE-M 300 61% 15ML VIAL As Ordered ONE; -LIDOCAINE 1% SDV 30ML VIAL As Ordered ONE; -TRIAMCINOLONE ACETONIDE SUSP 40 MG/ML VIAL (J3301) As Ordered ONE; -diazePAM 5MG TABLET As Ordered ONE; -oxyCODONE 5MG TAB As Ordered ONE
--- NOTE | 2020-08-24 00:50 | ECWPNPC ---
PATIENT NAME: HOLLIE SEXTON : 1985 GENDER: FEMALE VISIT DATE: 08/22/2020 DISCHARGE DATE: 08/22/20 1403 VISIT LOCKED DATE TIME: PHYSICIAN: MING HENDERSON RESOURCE: MING HENDERSON REASON FOR APPOINTMENT 1. BILATERAL SACROILIAC JOINT BLOCK HISTORY OF PRESENT ILLNESS GENERAL: HPI 34-YEAR-OLD FEMALE IN FOR POST BILATERAL SACROILIAC JOINT BLOCK FOLLOW-UP. SHE RATES HER PAIN PREPROCEDURE AT AN 8 OUT OF 10 AND POSTPROCEDURE AT A 1 OUT OF 10. SHE FURTHER STATES THE PROCEDURE CONTINUES TO HELP HER TODAY. RATING HER PAIN AT A 1 OUT OF 10 AND DESCRIBING IT ANNOYING.. -. FALL RISK SCREENING: SCREENING : ONE FALL WITHOUT INJURY THIS YEAR DUE TO SLIP ON ICE.. PAIN SCREENING: PATIENT HAS A COMPLAINT OF ACUTE OR CHRONIC PAIN :YES LOCATION OF PAIN:OTHER: MARKED ON DIAGRAM INTENSITY OF PAIN (SCALE OF 1 TO 10):1 WHAT DOES YOUR PAIN FEEL LIKE:OTHER ANNOYING DURATION:CONTINOUS PLAN/GOALS/TREATMENT/INTERVENTION/FOLLOW UP:SEE PLAN NURSING NOTE: -. PAIN CENTER INTAKE QUESTIONS: DO YOU HAVE A HISTORY OF MRSA? :NO DO YOU TAKE A BLOOD THINNERS? :NO DO YOU HAVE ANY BLEEDING DISORDERS? :NO ANY NEW NUMBNESS OR WEAKNESS IN YOUR LEGS OR ARMS? :NO ANY PACEMAKER,DEFIBRILLATOR, OR DORSAL COLUMN STIMULATOR? :NO DO YOU HAVE ANY RASHES OR OPEN SORES? :NO ARE YOU ALLERGIC TO IV DYE? :NO ARE YOU DIABETIC? :NO ANY NEW PROBLEMS WITH YOUR MEDICATIONS? :NO HAVE YOU RECEIVED A VACCINE IN THE PAST 30 DAYS? :NO DO YOU PLAN TO RECEIVE A VACCINE IN THE NEXT 21 DAYS? :NO DO YOU NEED ANY PRESCRIPTION? :NO DO YOU TAKE ANY IMMUNOSUPPRESSIVE MEDICATIONS? :NO DO YOU HAVE ANY KIDNEY OR LIVER DISEASE? :NO IS THERE A CHANCE YOU COULD BE ? :N/A ARE YOU BREAST FEEDING? :N/A CURRENT MEDICATIONS TAKING TRAMADOL HCL 50 MG TABLET 1 TABLET NEEDED ORALLY ONCE A DAY TAKING MELOXICAM 15 MG TABLET 1 TABLET ORALLY ONCE A DAY NEEDED TAKING METHYLPHENIDATE HCL ER 18 MG TABLET EXTENDED RELEASE (SCHEDULE II DRUG) TAKE THREE TABLETS BY MOUTH EVERY MORNING MAXIMUM DAILY DOSE 3 ORAL TAKING DULOXETINE HCL 60 MG CAPSULE DELAYED RELEASE PARTICLES TAKE ONE CAPSULE BY MOUTH IN THE EVENING ORAL TAKING GABAPENTIN 400 MG CAPSULE 1 CAPSULE ORALLY ONCE A DAY TAKING KETOCONAZOLE 2 % SHAMPOO 1 APPLICATION EXTERNALLY 2-3 TIMES PER WEEK SHAMPOO SCALP TAKING WELLBUTRIN XL 150 MG TABLET EXTENDED RELEASE 24 HOUR 1 TABLET IN THE MORNING ORALLY BID NOT-TAKING MULTIVITAMIN ADULT - TABLET ORALLY ONCE A DAY NOT-TAKING PROVERA 10 MG TABLET 1 TABLET WITH FOOD ORALLY ONCE A DAY NOT-TAKING CONCERTA 1 TABLET IN THE MORNING ORALLY DAILY NOT-TAKING GABAPENTIN 100 MG CAPSULE 1 CAPSULE ORALLY ONCE A DAY NOT-TAKING METHYLPHENIDATE 8.6 MG TABLET EXTENDED RELEASE DISINTEGRATING 1 TABLET IN THE MORNING ORALLY TID NOT-TAKING NORETHINDRONE 0.35 MG TABLET 1 TABLET ORALLY ONCE A DAY NOT-TAKING VITAMIN D 25 MCG (1000 UT) TABLET 1 TABLET ORALLY ONCE A DAY NOT-TAKING IRON 325 (65 FE) MG TABLET 1 TABLET ORALLY ONCE A DAY NOT-TAKING CLINDAMYCIN PHOSPHATE 1 % SWAB 1 APPLICATION EXTERNALLY TWICE DAILY TO ACNE PRONE AREAS ON FACE AND BACK NOT-TAKING DEBLITANE 0.35 MG TABLET TAKE ONE TABLET BY MOUTH EVERY DAY ORAL , NOTES: DUPLICATE NOT-TAKING DICLOFENAC SODIUM 75 MG TABLET DELAYED RELEASE 1 TABLET WITH FOOD OR MILK ORALLY TWICE A DAY MEDICATION LIST REVIEWED AND RECONCILED WITH THE PATIENT PAST MEDICAL HISTORY 4TH DEGREE VAGINAL TEAR FIBROMYALGIA CHRONIC PELVIC PAIN ALLERGIES MORPHINE SULFATE: HIVES - ALLERGY VICODIN: ANAPHYLAXIS - ALLERGY DILAUDID: HIVES - ALLERGY MODAFINIL: HIVES - ALLERGY SOCIAL HISTORY GENERAL: TOBACCO USE ARE YOU A: NEVER SMOKER LATEX QUESTIONNAIRE LATEX ALLERGY : HAVE YOU EVER DEVELOPED ANY TYPE OF REACTION AFTER HANDLING LATEX PRODUCTS SUCH RUBBER GLOVES, CONDOMS, DIAPHRAGMS, BALLOONS, SOCKS, OR UNDERWEAR?NO LATEX ALLERGY : HAVE YOU EVER DEVELOPED ANY TYPE OF REACTION DURING OR AFTER DENTAL APPOINTMENT, VAGINAL/RECTAL EXAMINATION, SURGICAL PROCEDURE, OR ANY OTHER EXPOSURE?NO LATEX RISK : HAVE YOU EVER HAD ANY DIFFICULTY BREATHING OR HIVES AFTER EATING OR HANDLING ANY FRUITS, OR VEGETABLES; SUCH KIWI, BANANAS, STONE FRUITS, OR CHESTNUTSNO LATEX RISK : DO YOU HAVE A PREVIOUS PERSONAL HISTORY OF MORE THAN NINE SURGERIES, SPINA BIFIDA, OR REPEATED CATHERIZATIONS? NO LATEX RISK : ARE YOU FREQUENTLY EXPOSED TO LATEX PRODUCTS IN YOUR OCCUPATION?NO DATE ASKED : 08/22/2020 ALCOHOL USE: NO. ALCOHOL SCREENING DID YOU HAVE A DRINK CONTAINING ALCOHOL IN THE PAST YEAR?YES HOW OFTEN DID YOU HAVE A DRINK CONTAINING ALCOHOL IN THE PAST YEAR?MONTHLY OR LESS (1 POINT) POINTS1 INTERPRETATIONNEGATIVE RECREATIONAL DRUG USE DRUG USE?NO CAFFEINE CAFFEINE USE?NO LANGUAGE TAMAZIGHT. 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 MARITAL STATUS: . OTHERS AT HOME: SPOUSE, CHILD. - HAS THE PATIENT BEEN EDUCATED REGARDING HIS/HER PLAN OF CARE?YES HAS THE PATIENT BEEN EDUCATED REGARDING PAIN, THE RISK FOR PAIN, THE IMPORTANCE OF EFFECTIVE PAIN MANAGEMENT, AND THE PAIN ASSESSMENT PROCESS?YES ADVANCE DIRECTIVE ADVANCE DIRECTIVE DISCUSSED WITH PATIENT:YES HCP - CB () REVIEW OF SYSTEMS CONSTITUTIONAL: ANY RECENT FEVER NO . CHILLS NO . WEIGHT CHANGE OF UNKNOWN REASONS NO . GASTROENTEROLOGY: NEW UNEXPLAINABLE CHANGES IN BOWEL CONTROL NO . CONSTIPATION NO . GENITOURINARY: ANY NEW CHANGE IN BLADDER CONTROL? NO . NEUROLOGY: NEW ONSET DIZZINESS OR NEUROLOGICAL CHANGES NOT MENTIONED NO . NEW NUMBNESS OR PAIN PATTERNS NOT MENTIONED AND PERTINENT TO TODAY'S VISIT NO . CARDIOLOGY: NEW CHEST PRESSURE NO . PATIENT DENIES NO . RESPIRATORY: UNEXPLAINABLE COUGH NO . NEW SHORTNESS OF BREATH NO . VITAL SIGNS WT 210.8 LBS, HT 66 IN, BMI 34.02 INDEX, BP 118/79 MM HG, HR 102 /MIN, RR 18 /MIN, TEMP 97.0 F, OXYGEN SAT % 97%, SAFE IN ENV? (Y/N) YES, NA INITIALS SC 13:31, REVIEWED BY: Fiordaliza MINA AIRCRAFT STRESS ANALYST. EXAMINATION GENERAL EXAMINATION: GENERALNO ACUTE DISTRESS, WELL NOURISHED AND HYDRATED. PSYCHAPPROPRIATE MOOD AND AFFECT . LUNGS:CLEAR TO AUSCULTATION BILATERALLY, NO WHEEZES, RHONCHI, RALES. HEART:NO MURMURS, REGULAR RATE AND RHYTHM. ASSESSMENTS OTHER CHRONIC PAIN - G89.29 (PRIMARY) SACROILIITIS, NOT ELSEWHERE CLASSIFIED - M46.1, RISK: (NULL) TREATMENT OTHER CHRONIC PAIN PAIN PROCEDURE LOGDATE OF [id number]/2021PROCEDURE:BILATERAL SACROILIAC JOINT BLOCKAMOUNT OF PRE SEDATEVALIUM 5MG; OXYCODONE 5MGRESULT:PRE-11/28 POST- 04/30 CONTINUES TO HELP TODAY NOTES: 34 YEAR-OLD FEMALE IN FOR POST PROCEDURAL FOLLOW-UP. GIVEN PRESENTING SYMPTOMS RECOMMEND FOLLOW-UP IN 3 MONTHS. PATIENT HAS EXPRESSED UNDERSTANDING OF AND WAS IN AGREEMENT WITH TREATMENT PLAN. GIVEN TIME TO ASK QUESTIONS AND EXPRESS CONCERNS. PROCEDURE CODES FA211 ESTABILISHED PATIENT [facility] CHARGE DISPOSITION & COMMUNICATION FOLLOW UP 3 MONTHS (REASON: SACROILLITIS ) ELECTRONICALLY SIGNED BY ANDREAS SHOEMAKER ON 08/23/2020 AT 09:52 AM EDT DISCLAIMER : THIS IS A VISIT SUMMARY EXTRACTED FROM THE [employer] CHART. IT IS NOT A COPY OF THE [employer] PROGRESS NOTE. AMARIS
== END ==
LOC: M PAIN 13:00
PROVIDERS: ATTEND Family Medicine
DX: G89.29 Other chronic pain (principal); M46.1 Sacroiliitis, not elsewhere classified; M79.7 Fibromyalgia; R10.2 Pelvic and perineal pain; Z79.899 Other long term (current) drug therapy; Z88.5 Allergy status to narcotic agent; Z88.8 Allergy status to other drugs, medicaments and biological substances

== ENCOUNTER → 2020-08-31 | Outpatient (CLI) | payer BC ==
[~2020-08-31] MED LIST changes: +OMEP20TA2 PO; -OMEP20TA9 PO
[2020-08-31 10:46] LABS: ALBUMIN 3.8 GM/DL (3.2-5.2); ALT/SGPT 28 U/L (12-78); BILIRUBIN,TOTAL 0.5 MG/DL (0.2-1.0); BLOOD UREA NITROGEN 12 MG/DL (7-18); CARBON DIOXIDE LEVEL 27 MEQ/L (21-32); CHLORIDE LEVEL 108 MEQ/L (98-107); CREATININE FOR GFR 0.69 MG/DL (0.55-1.30); FERRITIN 22 NG/ML (8-252); GLOMERULAR FILTRATION RATE > 60.0 (>60); GLUCOSE, FASTING 109 MG/DL (70-100); IRON (FE) 71 UG/DL (50-170); PERCENT SATURATION 16.7 % (13.2-45.0); POTASSIUM SERUM 4.2 MEQ/L (3.5-5.1); SODIUM LEVEL 140 MEQ/L (136-145); TOTAL IRON BINDING CAPACITY 424 UG/DL (250-450); TOTAL PROTEIN 6.9 GM/DL (6.4-8.2)
[2020-08-31 10:48] LABS: HEMOGLOBIN A1c 5.8 %
[2020-08-31 10:54] LABS: VITAMIN B12 LEVEL 345 PG/ML (247-911)
[2020-09-01 16:12] LABS: Lyme Disease IgG/IgM Antibodie <0.91 ISR (0.00-0.90); Lyme Disease IgM Ab Quantitati <0.80 index (0.00-0.79)
== END ==
LOC: M LAB 09:58
PROVIDERS: ATTEND Family Medicine
DX: R42 Dizziness and giddiness (principal)

== ENCOUNTER → 2020-09-07 | Outpatient (CLI) | payer BC | LOC: M LABSMTC 13:14 | PROVIDERS: ATTEND Anesthesiology | DX: Z01.812 Encounter for preprocedural laboratory examination (principal); Z20.822 Contact with and (suspected) exposure to COVID-19 ==

== ENCOUNTER 2020-10-11 10:30 | Outpatient (RCR) | payer BC ==
[~2020-10-11 10:30] MED LIST changes: +OMEP40CA4 PO; -OMEP40CA97 PO
== END 2020-10-18 ==
LOC: M PT 10:30
PROVIDERS: ATTEND Orthopaedic Surgery
DX: M54.5 Low back pain (principal)

== ENCOUNTER 2020-11-16 10:30 | Outpatient (RCR) | payer BC | END 2020-11-18 | LOC: M PT 10:30 | PROVIDERS: ATTEND Orthopaedic Surgery | DX: Z47.89 Encounter for other orthopedic aftercare (principal); Z98.1 Arthrodesis status; M54.5 Low back pain ==

== ENCOUNTER → 2020-11-22 | Outpatient (REF) | payer BC | LOC: M LAB REF 17:44 | PROVIDERS: ATTEND Family Medicine | DX: N39.0 Urinary tract infection, site not specified (principal) ==

== ENCOUNTER → 2020-11-22 | Outpatient (CLI) | payer BC ==
--- NOTE | 2020-11-24 04:28 | ECWPNPC ---
PATIENT NAME: HOLLIE SEXTON : 1985 GENDER: FEMALE VISIT DATE: 11/22/2020 DISCHARGE DATE: 11/22/20928 VISIT LOCKED DATE TIME: PHYSICIAN: MING HENDERSON RESOURCE: MING HENDERSON REASON FOR APPOINTMENT 1. SACROILLITIS HISTORY OF PRESENT ILLNESS DEPRESSION SCREENING: PHQ-2 (2015 EDITION) LITTLE INTEREST OR PLEASURE IN DOING THINGS?NOT AT ALL FEELING DOWN, DEPRESSED, OR HOPELESS?NOT AT ALL TOTAL SCORE0 GENERAL: HPI 34-YEAR-OLD FEMALE IN FOR CHRONIC PAIN FOLLOW-UP. SHE RATES HER PAIN CURRENTLY AT A 1 OUT OF 10 AND DESCRIBES IT ACHING AND CONTINUOUS.. -. FALL RISK SCREENING: SCREENING : NO FALLS REPORTED IN THE LAST YEAR. PAIN SCREENING: PATIENT HAS A COMPLAINT OF ACUTE OR CHRONIC PAIN :YES LOCATION OF PAIN:LOW BACK, LEFT HIP, RIGHT HIP INTENSITY OF PAIN (SCALE OF 1 TO 10):1 WHAT DOES YOUR PAIN FEEL LIKE:ACHING, CONTINOUS DURATION:CONTINOUS, CONSTANT PAIN IS INCREASED BY:ACTIVITIES, PROLONGED STANDING PAIN IS DECREASED BY:USE OF PAIN MEDICATIONS, SITTING NURSING NOTE: -. PAIN CENTER INTAKE QUESTIONS: DO YOU HAVE A HISTORY OF MRSA? :NO DO YOU TAKE A BLOOD THINNERS? :NO DO YOU HAVE ANY BLEEDING DISORDERS? :NO ANY NEW NUMBNESS OR WEAKNESS IN YOUR LEGS OR ARMS? :NO ANY PACEMAKER,DEFIBRILLATOR, OR DORSAL COLUMN STIMULATOR? :NO DO YOU HAVE ANY RASHES OR OPEN SORES? :NO ARE YOU ALLERGIC TO IV DYE? :NO ARE YOU DIABETIC? :NO ANY NEW PROBLEMS WITH YOUR MEDICATIONS? :NO HAVE YOU RECEIVED A VACCINE IN THE PAST 30 DAYS? :NO DO YOU PLAN TO RECEIVE A VACCINE IN THE NEXT 21 DAYS? :NO DO YOU NEED ANY PRESCRIPTION? :NO DO YOU TAKE ANY IMMUNOSUPPRESSIVE MEDICATIONS? :NO DO YOU HAVE ANY KIDNEY OR LIVER DISEASE? :NO IS THERE A CHANCE YOU COULD BE ? :N/A ARE YOU BREAST FEEDING? :N/A CURRENT MEDICATIONS TAKING TRAMADOL HCL 50 MG TABLET 1 TABLET NEEDED ORALLY ONCE A DAY TAKING MELOXICAM 15 MG TABLET 1 TABLET ORALLY ONCE A DAY NEEDED TAKING METHYLPHENIDATE HCL ER 18 MG TABLET EXTENDED RELEASE (SCHEDULE II DRUG) TAKE THREE TABLETS BY MOUTH EVERY MORNING MAXIMUM DAILY DOSE 3 ORAL TAKING DULOXETINE HCL 60 MG CAPSULE DELAYED RELEASE PARTICLES TAKE ONE CAPSULE BY MOUTH IN THE EVENING ORAL TAKING GABAPENTIN 400 MG CAPSULE 1 CAPSULE ORALLY ONCE A DAY TAKING KETOCONAZOLE 2 % SHAMPOO 1 APPLICATION EXTERNALLY 2-3 TIMES PER WEEK SHAMPOO SCALP TAKING WELLBUTRIN XL 150 MG TABLET EXTENDED RELEASE 24 HOUR 1 TABLET IN THE MORNING ORALLY BID NOT-TAKING MULTIVITAMIN ADULT - TABLET ORALLY ONCE A DAY NOT-TAKING PROVERA 10 MG TABLET 1 TABLET WITH FOOD ORALLY ONCE A DAY NOT-TAKING CONCERTA 1 TABLET IN THE MORNING ORALLY DAILY NOT-TAKING GABAPENTIN 100 MG CAPSULE 1 CAPSULE ORALLY ONCE A DAY NOT-TAKING METHYLPHENIDATE 8.6 MG TABLET EXTENDED RELEASE DISINTEGRATING 1 TABLET IN THE MORNING ORALLY TID NOT-TAKING NORETHINDRONE 0.35 MG TABLET 1 TABLET ORALLY ONCE A DAY NOT-TAKING VITAMIN D 25 MCG (1000 UT) TABLET 1 TABLET ORALLY ONCE A DAY NOT-TAKING IRON 325 (65 FE) MG TABLET 1 TABLET ORALLY ONCE A DAY NOT-TAKING CLINDAMYCIN PHOSPHATE 1 % SWAB 1 APPLICATION EXTERNALLY TWICE DAILY TO ACNE PRONE AREAS ON FACE AND BACK NOT-TAKING DEBLITANE 0.35 MG TABLET TAKE ONE TABLET BY MOUTH EVERY DAY ORAL , NOTES: DUPLICATE NOT-TAKING DICLOFENAC SODIUM 75 MG TABLET DELAYED RELEASE 1 TABLET WITH FOOD OR MILK ORALLY TWICE A DAY MEDICATION LIST REVIEWED AND RECONCILED WITH THE PATIENT PAST MEDICAL HISTORY 4TH DEGREE VAGINAL TEAR FIBROMYALGIA CHRONIC PELVIC PAIN ALLERGIES MORPHINE SULFATE: HIVES - ALLERGY VICODIN: ANAPHYLAXIS - ALLERGY DILAUDID: HIVES - ALLERGY MODAFINIL: HIVES - ALLERGY SURGICAL HISTORY SURGERY ON RIGHT ARM X 4 4TH DEGREE VAGINAL TEAR REPAIR AFTER CHILD WISDOM REMOVAL HERNIA REPAIR SACROILILIAC JOINT FUSED 08/2020 SOCIAL HISTORY GENERAL: TOBACCO USE ARE YOU A: NEVER SMOKER LATEX QUESTIONNAIRE LATEX ALLERGY : HAVE YOU EVER DEVELOPED ANY TYPE OF REACTION AFTER HANDLING LATEX PRODUCTS SUCH RUBBER GLOVES, CONDOMS, DIAPHRAGMS, BALLOONS, SOCKS, OR UNDERWEAR?NO LATEX ALLERGY : HAVE YOU EVER DEVELOPED ANY TYPE OF REACTION DURING OR AFTER DENTAL APPOINTMENT, VAGINAL/RECTAL EXAMINATION, SURGICAL PROCEDURE, OR ANY OTHER EXPOSURE?NO LATEX RISK : HAVE YOU EVER HAD ANY DIFFICULTY BREATHING OR HIVES AFTER EATING OR HANDLING ANY FRUITS, OR VEGETABLES; SUCH KIWI, BANANAS, STONE FRUITS, OR CHESTNUTSNO LATEX RISK : DO YOU HAVE A PREVIOUS PERSONAL HISTORY OF MORE THAN NINE SURGERIES, SPINA BIFIDA, OR REPEATED CATHERIZATIONS? NO LATEX RISK : ARE YOU FREQUENTLY EXPOSED TO LATEX PRODUCTS IN YOUR OCCUPATION?NO DATE ASKED : 11/22/2020 ALCOHOL USE: NO. ALCOHOL SCREENING DID YOU HAVE A DRINK CONTAINING ALCOHOL IN THE PAST YEAR?YES HOW OFTEN DID YOU HAVE A DRINK CONTAINING ALCOHOL IN THE PAST YEAR?MONTHLY OR LESS (1 POINT) POINTS1 INTERPRETATIONNEGATIVE RECREATIONAL DRUG USE DRUG USE?NO CAFFEINE CAFFEINE USE?NO LANGUAGE NEPALI. 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 MARITAL STATUS: . OTHERS AT HOME: SPOUSE, CHILD. - HAS THE PATIENT BEEN EDUCATED REGARDING HIS/HER PLAN OF CARE?YES HAS THE PATIENT BEEN EDUCATED REGARDING PAIN, THE RISK FOR PAIN, THE IMPORTANCE OF EFFECTIVE PAIN MANAGEMENT, AND THE PAIN ASSESSMENT PROCESS?YES ADVANCE DIRECTIVE ADVANCE DIRECTIVE DISCUSSED WITH PATIENT:YES HCP - CB () HOSPITALIZATION/MAJOR DIAGNOSTIC PROCEDURE CHILD RIGHT ARM REPAIR COMPOUND FRACTURE REVIEW OF SYSTEMS CONSTITUTIONAL: ANY RECENT FEVER NO . CHILLS NO . WEIGHT CHANGE OF UNKNOWN REASONS NO . GASTROENTEROLOGY: NEW UNEXPLAINABLE CHANGES IN BOWEL CONTROL NO . CONSTIPATION NO . GENITOURINARY: ANY NEW CHANGE IN BLADDER CONTROL? NO . NEUROLOGY: NEW ONSET DIZZINESS OR NEUROLOGICAL CHANGES NOT MENTIONED NO . NEW NUMBNESS OR PAIN PATTERNS NOT MENTIONED AND PERTINENT TO TODAY'S VISIT NO . CARDIOLOGY: NEW CHEST PRESSURE NO . PATIENT DENIES NO . RESPIRATORY: UNEXPLAINABLE COUGH NO . NEW SHORTNESS OF BREATH NO . VITAL SIGNS WT 220.4 LBS, WT-KG 99.97 KG, HT 66 IN, BMI 35.57 INDEX, BP 119/57 MM HG, HR 96 /MIN, RR 18 /MIN, TEMP 98.1 F, OXYGEN SAT % 98%, SAFE IN ENV? (Y/N) YES, NA INITIALS AW 0902, REVIEWED BY: MARIA E ANG MA. EXAMINATION GENERAL EXAMINATION: GENERALNO ACUTE DISTRESS, WELL NOURISHED AND HYDRATED. PSYCHAPPROPRIATE MOOD AND AFFECT . LUNGS:CLEAR TO AUSCULTATION BILATERALLY, NO WHEEZES, RHONCHI, RALES. HEART:NO MURMURS, REGULAR RATE AND RHYTHM. ASSESSMENTS SACROILIITIS, NOT ELSEWHERE CLASSIFIED - M46.1 (PRIMARY) TREATMENT SACROILIITIS, NOT ELSEWHERE CLASSIFIED NOTES: 34-YEAR-OLD FEMALE IN FOR CHRONIC PAIN FOLLOW-UP. GIVEN PRESENTING SYMPTOMS RECOMMEND FOLLOW-UP IN 1 MONTH. PATIENT IS EXPRESSED UNDERSTANDING OF AND WAS IN AGREEMENT WITH TREATMENT PLAN. GIVEN TIME TO ASK QUESTIONS AND EXPRESS CONCERNS. PROCEDURE CODES FA211 ESTABILISHED PATIENT [facility] CHARGE DISPOSITION & COMMUNICATION FOLLOW UP 4 WEEKS (REASON: SACROILITIS ) ELECTRONICALLY SIGNED BY ANDREAS SHOEMAKER ON 11/23/2020 AT 07:46 AM EDT DISCLAIMER : THIS IS A VISIT SUMMARY EXTRACTED FROM THE [facility] CHART. IT IS NOT A COPY OF THE [facility] PROGRESS NOTE. AMARIS
== END ==
LOC: M PAIN 09:00
PROVIDERS: ATTEND Family Medicine
DX: M46.1 Sacroiliitis, not elsewhere classified (principal); M79.7 Fibromyalgia; R10.2 Pelvic and perineal pain; Z79.891 Long term (current) use of opiate analgesic; Z79.899 Other long term (current) drug therapy; Z88.5 Allergy status to narcotic agent; Z88.8 Allergy status to other drugs, medicaments and biological substances

== ENCOUNTER → 2020-12-01 | Outpatient (REF) | payer BC | LOC: M LAB REF 14:56 | PROVIDERS: ATTEND Physician Assistant | DX: N39.0 Urinary tract infection, site not specified (principal) ==

== ENCOUNTER 2020-12-03 16:34 | Emergency (ER) | payer BC ==
[~2020-12-03] VITALS: Ht 167.6 cm; Wt 99.7 kg
[2020-12-03] MEDS ORDERED: KETOROLAC 30 MG/ML 1ML VIAL IV ONE (19:15)
[2020-12-03] MEDS ORDERED: NS 1,000 ML IV ONE (19:15)
[2020-12-03] MEDS ORDERED: ONDANSETRON 4MG/2ML VIAL IV ONE (19:15)
[2020-12-03 19:44] LABS: BASO # 0.1 10^3/uL (0.0-0.2); BASO % 0.4 % (0.0-1.0); HEMOGLOBIN 12.6 g/dl (12.0-15.5); LYMPH # 2.5 10^3/uL (1.5-5.0); LYMPH % 20.5 % (24.0-44.0); MEAN CORPUSCULAR HEMOGLOBIN 25.4 pg (27.0-33.0); MEAN CORPUSCULAR HGB CONC 30.7 g/dl (32.0-36.5); MEAN CORPUSCULAR VOLUME 82.7 fl (80.0-96.0); MONO # 0.7 10^3/uL (0.0-0.8); MONO % 5.4 % (2.0-8.0); NEUTROPHILS % 73.4 % (36.0-66.0); PLATELET COUNT, AUTOMATED 315 10^3/uL (150-450); RED BLOOD COUNT 4.96 10^6/uL (4.00-5.40); WHITE BLOOD COUNT 12.3 10^3/uL (4.0-10.0)
[2020-12-03 20:24] LABS: ALBUMIN 3.9 GM/DL (3.2-5.2); ALT/SGPT 26 U/L (12-78); BILIRUBIN,DIRECT < 0.1 MG/DL (0.0-0.2); BILIRUBIN,TOTAL 0.2 MG/DL (0.2-1.0); LIPASE 101 U/L (73-393); TOTAL PROTEIN 7.1 GM/DL (6.4-8.2)
--- NOTE | 2020-12-03 22:24 | REPVR ---
PROCEDURE INFORMATION: Exam: CT Abdomen And Pelvis Without Contrast Exam date and time: 12/03/2020 9:17 PM Age: 34 years old Clinical indication: Abdominal tenderness; Additional info: Hematuria, llq tenderness TECHNIQUE: Imaging protocol: Computed tomography of the abdomen and pelvis without contrast. Axial, coronal and sagittal reformatted images were created and reviewed. Radiation optimization: All CT scans at this facility use at least one of these dose optimization techniques: automated exposure control; mA and/or kV adjustment per patient size (includes targeted exams where dose is matched to clinical indication); or iterative reconstruction. COMPARISON: CT ABD/PEL W/IV ORAL CONTRAS 10/12/2016 7:00 PM FINDINGS: Liver: Unremarkable. Gallbladder and bile ducts: No radiodense gallstones. No biliary ductal dilatation. Pancreas: Unremarkable. Spleen: Unremarkable. Adrenal glands: Normal. No mass. Kidneys and ureters: No mass. No radiodense calculi. No hydronephrosis. Stomach and bowel: Moderate amount of retained stool in the colon. Scattered colonic diverticula without evidence of diverticulitis. No obstruction. No bowel wall thickening. No pneumatosis. Appendix: Normal. Intraperitoneal space: No free fluid. No organized fluid collection. No free air. Vasculature: Unremarkable. No aneurysm. Lymph nodes: No pathologically enlarged lymph nodes. Urinary bladder: Unremarkable as visualized. Reproductive: Unremarkable. Bones/joints: No acute osseous abnormality. Status post bilateral sacroiliac joint fusion. Soft tissues: Tiny, fat containing umbilical hernia. IMPRESSION: 1. Limited noncontrast examination without CT evidence of acute intra-abdominal or pelvic pathology. 2. Additional findings, as above. Electronically signed by: Ishaan Laird On 12/03/2020 22:23:55 PM
[2020-12-03 23:54] LABS: GC DNA AMPLIFICATION NEGATIVE (NEGATIVE)
[2020-12-03 23:56] VITALS: BP 98/53
== END 2020-12-03 23:58 | disposition home or self-care (01) ==
LOC: M ED 16:34
DX: R10.9 Unspecified abdominal pain (principal); R31.9 Hematuria, unspecified; R50.9 Fever, unspecified; R11.0 Nausea; K42.9 Umbilical hernia without obstruction or gangrene; G47.33 Obstructive sleep apnea (adult) (pediatric); K58.9 Irritable bowel syndrome, unspecified; F53.0 Postpartum depression; D64.9 Anemia, unspecified; M79.7 Fibromyalgia; Z88.6 Allergy status to analgesic agent; Z88.5 Allergy status to narcotic agent; Z91.048 Other nonmedicinal substance allergy status; Z79.899 Other long term (current) drug therapy
CPT/HCPCS: 74176; 80047; 80076; 81001; 83605; 83690; 84702; 85025; 87661; 96361; 96374; 99284; J2405

== ENCOUNTER 2020-12-14 10:30 | Outpatient (RCR) | payer BC ==
[~2020-12-14 10:30] MED LIST changes: -PHEN30CA2 PO; +PHEN30CA21 PO
[2021-05-01] MEDS ORDERED: WELLTAB38 PO (10:29)
[2021-05-01] MEDS ORDERED: GABA-283 PO (10:29)
[2021-05-01] MEDS ORDERED: CYMB60CA4 PO (10:29)
[2021-05-01] MEDS ORDERED: METH1TAB13 PO (10:29)
[2021-05-01] MEDS ORDERED: TRAM50TA2 PO (10:29)
[2021-05-01] MEDS ORDERED: NEUR100C PO (10:52)
== END 2020-12-19 ==
LOC: M PT 10:30
PROVIDERS: ATTEND Orthopaedic Surgery
DX: M46.1 Sacroiliitis, not elsewhere classified (principal)

== ENCOUNTER 2020-12-28 08:14 | Outpatient (RCR) | payer BC ==
[~2020-12-28 08:14] MED LIST changes: +PHEN30CA2 PO; -PHEN30CA21 PO
== END 2021-01-18 ==
LOC: M PT 08:14
PROVIDERS: ATTEND Orthopaedic Surgery
DX: M79.18 Myalgia, other site (principal); M53.3 Sacrococcygeal disorders, not elsewhere classified

== ENCOUNTER → 2021-01-10 | Outpatient (REF) | LOC: M LABSMTC 11:33 | PROVIDERS: ATTEND Pediatrics | DX: Z11.52 Encounter for screening for COVID-19 (principal) ==

== ENCOUNTER → 2021-03-01 | Outpatient (REF) ==
[2021-03-01 15:03] LABS: RSV AMPLIFICATION NEGATIVE (NEGATIVE)
== END ==
LOC: M EMP 14:09
PROVIDERS: ATTEND Family Medicine
DX: Z20.822 Contact with and (suspected) exposure to COVID-19 (principal)

== ENCOUNTER → 2021-03-29 | Outpatient (CLI) | payer BC ==
[~2021-03-29] MED LIST changes: +AMPH1CAP14 PO; +CYMB60CA4 PO; +DULO1CAP5 PO; +GABA-283 PO; +METH1TAB13 PO; +NEUR100C PO; -PHEN30CA2 PO; +PHEN30CA21 PO; +TRAM50TA2 PO; +WELLTAB38 PO
== END ==
LOC: M PAIN 09:45
PROVIDERS: ATTEND Anesthesiology
DX: R10.2 Pelvic and perineal pain (principal); M79.2 Neuralgia and neuritis, unspecified; M79.7 Fibromyalgia; Z79.891 Long term (current) use of opiate analgesic; Z79.899 Other long term (current) drug therapy; Z88.5 Allergy status to narcotic agent; Z88.8 Allergy status to other drugs, medicaments and biological substances

== ENCOUNTER → 2021-04-27 | Outpatient (CLI) | payer BC ==
[~2021-04-27] MED LIST changes: -AMPH1CAP14 PO; -DULO1CAP5 PO
== END ==
LOC: M PAIN 10:15
PROVIDERS: ATTEND Anesthesiology
DX: R10.2 Pelvic and perineal pain (principal); M79.2 Neuralgia and neuritis, unspecified; M79.7 Fibromyalgia; Z79.891 Long term (current) use of opiate analgesic; Z79.899 Other long term (current) drug therapy; Z88.5 Allergy status to narcotic agent; Z88.8 Allergy status to other drugs, medicaments and biological substances

== ENCOUNTER → 2021-05-03 | Outpatient (CLI) | payer BC | LOC: M LABSMTC 12:39 | PROVIDERS: ATTEND Anesthesiology | DX: Z01.818 Encounter for other preprocedural examination (principal); Z11.52 Encounter for screening for COVID-19 ==

== ENCOUNTER → 2021-05-09 | Outpatient (REF) | LOC: M LABSMTC 11:02 | PROVIDERS: ATTEND Pediatrics | DX: Z11.52 Encounter for screening for COVID-19 (principal) ==

== ENCOUNTER → 2021-05-11 | Outpatient (CLI) | payer BC | LOC: M RAD 16:46 | PROVIDERS: ATTEND Anesthesiology | DX: R10.2 Pelvic and perineal pain (principal) ==

== ENCOUNTER → 2021-05-14 | Outpatient (CLI) | payer BC | LOC: M WHC 10:59 | PROVIDERS: ATTEND Physician Assistant | DX: Z12.31 Encounter for screening mammogram for malignant neoplasm of breast (principal) ==

== ENCOUNTER → 2021-05-19 | Outpatient (REF) | LOC: M LABSMTC 10:15 | PROVIDERS: ATTEND Family Medicine | DX: Z11.52 Encounter for screening for COVID-19 (principal) ==

== ENCOUNTER → 2021-05-30 | Outpatient (CLI) | payer BC | LOC: M PAIN 13:45 | PROVIDERS: ATTEND Anesthesiology | DX: R10.2 Pelvic and perineal pain (principal); M79.2 Neuralgia and neuritis, unspecified; M79.7 Fibromyalgia; Z79.891 Long term (current) use of opiate analgesic; Z79.899 Other long term (current) drug therapy; Z88.5 Allergy status to narcotic agent; Z88.8 Allergy status to other drugs, medicaments and biological substances ==

== ENCOUNTER 2021-06-21 17:57 | Emergency (ER) | payer BC ==
[~2021-06-21] VITALS: Ht 167.6 cm; Wt 102.0 kg
[~2021-06-21 17:57] MED LIST changes: -BACT800T5 PO
[2021-06-21 17:59] VITALS: BP 146/89
[2021-06-21] MEDS ORDERED: BACT800T5 PO (19:00)
== END 2021-06-21 19:14 | disposition home or self-care (01) ==
LOC: M ED 17:57
DX: L73.8 Other specified follicular disorders (principal); M79.7 Fibromyalgia; Z88.6 Allergy status to analgesic agent; Z88.8 Allergy status to other drugs, medicaments and biological substances

== ENCOUNTER → 2021-06-21 | Outpatient (CLI) | payer BC ==
[~2021-06-21] MED LIST changes: +AMPH1CAP14 PO; +BACT800T5 PO; +DULO1CAP5 PO
== END ==
LOC: M LABSMTC 09:58
PROVIDERS: ATTEND Anesthesiology
DX: Z01.818 Encounter for other preprocedural examination (principal); Z11.52 Encounter for screening for COVID-19

== ENCOUNTER 2021-06-25 08:12 | Day surgery (SDC) | payer BC ==
[~2021-06-25] VITALS: Ht 167.6 cm; Wt 100.7 kg
[~2021-06-25 08:12] MED LIST changes: +BACT800T5 PO; +BUPIVACAINE HCL 0.5% 30 ML VIAL As Ordered ONE; +ISOVUE-300 61% 50ML VIAL As Ordered ONE; +LIDOCAINE 1% MDV 20ML VIAL SQ PRN; +LIDOCAINE 1% SDV 30ML VIAL As Ordered ONE; +LIDOCAINE 2% 100MG/5ML SDV (FOR ANES.) As Ordered ONE; +LR 1,000 ML IV ONE; +MIDAZOLAM INJ 2MG/2ML VIAL (J2250 PER 1MG) As Ordered ONE; +ONDANSETRON 4MG/2ML VIAL As Ordered ONE; +TRIAMCINOLONE ACETONIDE SUSP 40 MG/ML VIAL (J3301) As Ordered ONE; +dexameTHASONE 10MG/1ML VIAL PRES.FREE (J1100 PER 1MG) As Ordered ONE; +fentaNYL 100 MCG/2 ML INJECTION As Ordered ONE; +propofoL 200 MG/20 ML VIAL As Ordered ONE
[2021-06-25] MEDS ORDERED: BUPIVACAINE HCL 0.25% 30ML VIAL As Ordered ONE (09:23)
[2021-06-25] MEDS ORDERED: propofoL 200 MG/20 ML VIAL As Ordered ONE (10:01)
[2021-06-25 11:33] VITALS: BP 118/61
== END 2021-06-25 11:35 | disposition home or self-care (01) ==
LOC: M SDC 08:12
PROVIDERS: ATTEND Anesthesiology
DX: R10.2 Pelvic and perineal pain (principal); M53.3 Sacrococcygeal disorders, not elsewhere classified; M79.7 Fibromyalgia; F32.9 Major depressive disorder, single episode, unspecified; K21.9 Gastro-esophageal reflux disease without esophagitis; N39.3 Stress incontinence (female) (male); F90.9 Attention-deficit hyperactivity disorder, unspecified type; R06.83 Snoring; G47.30 Sleep apnea, unspecified; Z88.5 Allergy status to narcotic agent; Z91.048 Other nonmedicinal substance allergy status; Z79.899 Other long term (current) drug therapy; Z79.891 Long term (current) use of opiate analgesic
CPT/HCPCS: 64999; 76000; 81025; J2250; J2405; J3010; J3301; Q9967

== ENCOUNTER → 2021-07-04 | Outpatient (CLI) | payer BC ==
[~2021-07-04] MED LIST changes: -BUPIVACAINE HCL 0.5% 30 ML VIAL As Ordered ONE; -ISOVUE-300 61% 50ML VIAL As Ordered ONE; -LIDOCAINE 1% MDV 20ML VIAL SQ PRN; -LIDOCAINE 1% SDV 30ML VIAL As Ordered ONE; -LIDOCAINE 2% 100MG/5ML SDV (FOR ANES.) As Ordered ONE; -LR 1,000 ML IV ONE; -MIDAZOLAM INJ 2MG/2ML VIAL (J2250 PER 1MG) As Ordered ONE; -ONDANSETRON 4MG/2ML VIAL As Ordered ONE; -TRIAMCINOLONE ACETONIDE SUSP 40 MG/ML VIAL (J3301) As Ordered ONE; -dexameTHASONE 10MG/1ML VIAL PRES.FREE (J1100 PER 1MG) As Ordered ONE; -fentaNYL 100 MCG/2 ML INJECTION As Ordered ONE; -propofoL 200 MG/20 ML VIAL As Ordered ONE
== END ==
LOC: M PAIN 10:15
PROVIDERS: ATTEND Anesthesiology
DX: R10.2 Pelvic and perineal pain (principal); G89.29 Other chronic pain; M79.2 Neuralgia and neuritis, unspecified; M79.7 Fibromyalgia; Z88.5 Allergy status to narcotic agent; Z88.8 Allergy status to other drugs, medicaments and biological substances; Z79.899 Other long term (current) drug therapy

== ENCOUNTER → 2021-07-23 | Outpatient (REF) | payer BC | LOC: M SFHCWAGY 12:52 | PROVIDERS: ATTEND Obstetrics & Gynecology | DX: Z12.4 Encounter for screening for malignant neoplasm of cervix (principal) ==

== ENCOUNTER → 2021-07-23 | Outpatient (REF) | payer BC | LOC: M PLALAB 09:12 | PROVIDERS: ATTEND Obstetrics & Gynecology | DX: Z12.4 Encounter for screening for malignant neoplasm of cervix (principal); Z53.9 Procedure and treatment not carried out, unspecified reason ==

== ENCOUNTER → 2021-07-24 | Outpatient (CLI) | payer BC | LOC: M WHC 07:16 | PROVIDERS: ATTEND Physician Assistant | DX: N63.31 Unspecified lump in axillary tail of the right breast (principal) ==

== ENCOUNTER → 2021-07-25 | Outpatient (CLI) | payer BC ==
[2021-07-25 12:42] LABS: HEMATOCRIT 41.1 % (36.0-47.0); HEMOGLOBIN 12.6 g/dl (12.0-15.5); MEAN CORPUSCULAR HEMOGLOBIN 24.9 pg (27.0-33.0); MEAN CORPUSCULAR HGB CONC 30.7 g/dl (32.0-36.5); MEAN CORPUSCULAR VOLUME 81.2 fl (80.0-96.0); PLATELET COUNT, AUTOMATED 280 10^3/uL (150-450); RED BLOOD COUNT 5.06 10^6/uL (4.00-5.40); WHITE BLOOD COUNT 8.9 10^3/uL (4.0-10.0)
== END ==
LOC: M RAD 10:40
PROVIDERS: ATTEND Obstetrics & Gynecology
DX: N93.9 Abnormal uterine and vaginal bleeding, unspecified (principal)

== ENCOUNTER → 2021-10-19 | Outpatient (CLI) | payer BC ==
[~2021-10-19] MED LIST changes: +PROHANCE 279.3MG/ML 15ML VIAL As Ordered ONE; +PROHANCE 279.3MG/ML 5ML VIAL As Ordered ONE
== END ==
LOC: M RAD 14:22
PROVIDERS: ATTEND Surgery
DX: Z91.89 Other specified personal risk factors, not elsewhere classified (principal)

== ENCOUNTER → 2021-11-14 | Outpatient (CLI) | payer BC ==
[~2021-11-14] MED LIST changes: -PROHANCE 279.3MG/ML 15ML VIAL As Ordered ONE; -PROHANCE 279.3MG/ML 5ML VIAL As Ordered ONE
[2021-11-14 19:23] LABS: BASO # 0.1 10^3/uL (0.0-0.2); BASO % 0.4 % (0.0-1.0); HEMOGLOBIN 12.4 g/dl (12.0-15.5); LYMPH # 3.5 10^3/uL (1.5-5.0); LYMPH % 25.5 % (24.0-44.0); MEAN CORPUSCULAR HEMOGLOBIN 25.8 pg (27.0-33.0); MEAN CORPUSCULAR HGB CONC 31.8 g/dl (32.0-36.5); MEAN CORPUSCULAR VOLUME 81.1 fl (80.0-96.0); MONO # 0.8 10^3/uL (0.0-0.8); MONO % 5.9 % (2.0-8.0); NEUTROPHILS # 9.3 10^3/uL (1.5-8.5); NEUTROPHILS % 67.9 % (36.0-66.0); PLATELET COUNT, AUTOMATED 313 10^3/uL (150-450); RED BLOOD COUNT 4.81 10^6/uL (4.00-5.40); WHITE BLOOD COUNT 13.7 10^3/uL (4.0-10.0)
[2021-11-14 19:52] LABS: BLOOD UREA NITROGEN 9 MG/DL (7-18); CALCIUM LEVEL 9.3 MG/DL (8.5-10.1); CARBON DIOXIDE LEVEL 27 MEQ/L (21-32); CHLORIDE LEVEL 108 MEQ/L (98-107); CREATININE FOR GFR 0.74 MG/DL (0.55-1.30); GLOMERULAR FILTRATION RATE > 60.0 (>60); GLUCOSE, FASTING 103 MG/DL (70-100); POTASSIUM SERUM 3.9 MEQ/L (3.5-5.1); SODIUM LEVEL 142 MEQ/L (136-145)
== END ==
LOC: M LAB 18:54 → M RAD 18:54
PROVIDERS: ATTEND Nurse Practitioner Adult Health
DX: Z01.818 Encounter for other preprocedural examination (principal); Z79.899 Other long term (current) drug therapy

== ENCOUNTER → 2021-11-14 | Outpatient (CLI) | payer BC ==
[2021-11-14 19:23] LABS: BASO % 0.3 % (0.0-1.0); HEMATOCRIT 39.7 % (36.0-47.0); HEMOGLOBIN 12.4 g/dl (12.0-15.5); LYMPH # 3.2 10^3/uL (1.5-5.0); LYMPH % 24.2 % (24.0-44.0); MEAN CORPUSCULAR HEMOGLOBIN 25.6 pg (27.0-33.0); MEAN CORPUSCULAR HGB CONC 31.2 g/dl (32.0-36.5); MONO # 0.8 10^3/uL (0.0-0.8); MONO % 6.2 % (2.0-8.0); PLATELET COUNT, AUTOMATED 317 10^3/uL (150-450); RED BLOOD COUNT 4.84 10^6/uL (4.00-5.40); WHITE BLOOD COUNT 13.1 10^3/uL (4.0-10.0)
[2021-11-14 20:00] LABS: HEMOGLOBIN A1c 5.8 %
[2021-11-14 20:02] LABS: ALT/SGPT 20 U/L (12-78); BILIRUBIN,TOTAL 0.3 MG/DL (0.2-1.0); BLOOD UREA NITROGEN 10 MG/DL (7-18); CALCIUM LEVEL 9.5 MG/DL (8.5-10.1); CARBON DIOXIDE LEVEL 27 MEQ/L (21-32); CHLORIDE LEVEL 108 MEQ/L (98-107); CHOLESTEROL LEVEL 146 MG/DL (<200); CREATININE FOR GFR 0.76 MG/DL (0.55-1.30); GLOMERULAR FILTRATION RATE > 60.0 (>60); GLUCOSE, FASTING 105 MG/DL (70-100); HDL CHOLESTEROL 39 MG/DL (>40); SODIUM LEVEL 143 MEQ/L (136-145); TRIGLYCERIDES LEVEL 202 MG/DL (<150)
[2021-11-14 20:03] LABS: CHOLESTEROL RISK RATIO 3.743 (<5); FREE T4 0.93 NG/DL (0.76-1.46); LDL CHOLESTEROL 67 MG/DL (<100); NON-HDL-C 107 MG/DL; THYROID STIMULATING HORMONE 0.807 uIU/ML (0.358-3.740); TOTAL PROTEIN 7.3 GM/DL (6.4-8.2)
== END ==
LOC: M LAB 18:57
PROVIDERS: ATTEND Physician Assistant
DX: D48.62 Neoplasm of uncertain behavior of left breast (principal)

== ENCOUNTER → 2021-11-15 | Outpatient (CLI) | payer BC | LOC: M LABSMTC 10:19 | PROVIDERS: ATTEND Anesthesiology | DX: Z20.822 Contact with and (suspected) exposure to COVID-19 (principal) ==

== ENCOUNTER 2021-11-20 06:04 | Day surgery (SDC) | payer BC ==
[~2021-11-20] VITALS: Ht 167.6 cm; Wt 98.3 kg
[~2021-11-20 06:04] MED LIST changes: +HEPARIN SOD (PORCINE) 5000UNITS/ML 1ML VIAL/SYRINGE SQ ONE; +ceFAZolin SOD 2 GM in IV 1 EA IV ONE
[2021-11-20] MEDS ORDERED: LR 1,000 ML IV SCH ×2 (06:35→09:50)
[2021-11-20] MEDS ORDERED: SCOPOLAMINE 1MG TRANSDERMAL PATCH TOP STA (07:24)
[2021-11-20] MEDS ORDERED: LIDOCAINE 1% SDV 30ML VIAL As Ordered ONE (08:08)
[2021-11-20] MEDS ORDERED: BUPIVACAINE HCL 0.25% 30ML VIAL As Ordered ONE (08:08)
[2021-11-20] MEDS ORDERED: SCOPOLAMINE 1MG TRANSDERMAL PATCH As Ordered ONE (08:09)
[2021-11-20] MEDS ORDERED: LIDOCAINE 2% 100MG/5ML SDV (FOR ANES.) As Ordered ONE (08:24)
[2021-11-20] MEDS ORDERED: MIDAZOLAM INJ 2MG/2ML VIAL (J2250 PER 1MG) As Ordered ONE (08:24)
[2021-11-20] MEDS ORDERED: ONDANSETRON 4MG 2ML VIAL As Ordered ONE (08:24)
[2021-11-20] MEDS ORDERED: fentaNYL 100 MCG/2 ML INJECTION As Ordered ONE (08:24)
[2021-11-20] MEDS ORDERED: dexameTHASONE 4 MG/ML 1ML VIAL (J1100 PER 1MG) As Ordered ONE (08:24)
[2021-11-20] MEDS ORDERED: ACETAMINOPHEN 1000MG 100ML IV BTL (OFIRMEV) (J0131 PER 10MG) As Ordered ONE (08:25)
[2021-11-20] MEDS ORDERED: ULTR50TA8 PO (09:48)
[2021-11-20] MEDS ORDERED: oxyCODONE 5MG TAB PO PRN (09:50)
[2021-11-20] MEDS ORDERED: ONDANSETRON 4MG 2ML VIAL IV PRN (09:50)
[2021-11-20] MEDS ORDERED: fentaNYL 100 MCG/2 ML INJECTION IV PRN (09:50)
[2021-11-20] MEDS ORDERED: diphenhydrAMINE 50MG/ML VIAL (J1200) IV STA (10:08)
[2021-11-20 11:10] VITALS: BP 105/60
== END 2021-11-20 11:20 | disposition home or self-care (01) ==
LOC: M SDC 06:04 → EDSTATUS 07:30 → M SDC 11:20
PROVIDERS: ATTEND Surgery
DX: D24.2 Benign neoplasm of left breast (principal); D64.9 Anemia, unspecified; I73.00 Raynaud's syndrome without gangrene; F90.8 Attention-deficit hyperactivity disorder, other type; M79.7 Fibromyalgia; M62.58 Muscle wasting and atrophy, not elsewhere classified, other site; J30.9 Allergic rhinitis, unspecified; E55.9 Vitamin D deficiency, unspecified; Z79.899 Other long term (current) drug therapy; Z79.3 Long term (current) use of hormonal contraceptives; Z88.5 Allergy status to narcotic agent; Z88.8 Allergy status to other drugs, medicaments and biological substances
CPT/HCPCS: 19101; 36415; 76942; 81025; 86850; 86900; 86901; 88307; A4648; J0131; J0690; J1100; J1200; J1644; J2250; J2405; J3010

== ENCOUNTER → 2021-12-26 | Outpatient (REF) | payer BC ==
[~2021-12-26] MED LIST changes: -HEPARIN SOD (PORCINE) 5000UNITS/ML 1ML VIAL/SYRINGE SQ ONE; +ULTR50TA8 PO; -ceFAZolin SOD 2 GM in IV 1 EA IV ONE
[2021-12-26 22:38] LABS: APPEARANCE, URINE MANUAL CLOUDY (CLEAR); COLOR, URINE MANUAL YELLOW (YELLOW)
[2021-12-26 22:39] LABS: BILIRUBIN, URINE MANUAL NEGATIVE (NEGATIVE); BLOOD URINE MANUAL POSITIVE (NEGATIVE); GLUCOSE, URINE (UA) MANUAL NEGATIVE (NEGATIVE); KETONE, URINE MANUAL NEGATIVE (NEGATIVE); LEUKOCYTE ESTERASE, URINE MAN TRACE (NEGATIVE); NITRITE, URINE MANUAL NEGATIVE (NEGATIVE); PROTEIN, URINE MANUAL NEGATIVE (NEGATIVE); UROBILINOGEN, URINE MANUAL NORMAL (NORMAL)
[2021-12-26 22:57] LABS: AMORPHOUS SEDIMENT, URINE LARGE AMOUNT (NEGATIVE); BACTERIA, URINE NONE SEEN; HYALINE CAST, URINE NONE SEEN /lpf (0-1); SQUAMOUS EPITHELIAL CELL URINE SMALL AMOUNT /hpf (SMALL AMT)
== END ==
LOC: M LAB REF 21:34
PROVIDERS: ATTEND Physician Assistant
DX: N39.0 Urinary tract infection, site not specified (principal)

== ENCOUNTER → 2022-01-01 | Outpatient (REF) | payer BC ==
[2022-01-01 20:41] LABS: APPEARANCE, URINE MANUAL CLEAR (CLEAR); COLOR, URINE MANUAL DK YELLOW (YELLOW)
[2022-01-01 20:43] LABS: BILIRUBIN, URINE MANUAL NEGATIVE (NEGATIVE); BLOOD URINE MANUAL POSITIVE (NEGATIVE); GLUCOSE, URINE (UA) MANUAL NEGATIVE (NEGATIVE); KETONE, URINE MANUAL NEGATIVE (NEGATIVE); LEUKOCYTE ESTERASE, URINE MAN POSITIVE (NEGATIVE); NITRITE, URINE MANUAL NEGATIVE (NEGATIVE); PROTEIN, URINE MANUAL NEGATIVE (NEGATIVE); UROBILINOGEN, URINE MANUAL NORMAL (NORMAL)
[2022-01-01 21:14] LABS: BACTERIA, URINE MOD AMOUNT; HYALINE CAST, URINE NONE SEEN /lpf (0-1); SQUAMOUS EPITHELIAL CELL URINE LARGE AMOUNT /hpf (SMALL AMT)
== END ==
LOC: M LAB REF 16:38
PROVIDERS: ATTEND Physician Assistant Medical
DX: N39.0 Urinary tract infection, site not specified (principal)

== ENCOUNTER → 2022-01-08 | Outpatient (CLI) | payer BC ==
[~2022-01-08] MED LIST changes: +GASTROGRAFIN SOLUTION 30ML (Q9963) As Ordered ONE; +ISOVUE-370 76% 100ML VIAL As Ordered ONE
[2022-01-08 11:26] LABS: BASO # 0.1 10^3/uL (0.0-0.2); BASO % 0.6 % (0.0-1.0); HEMATOCRIT 41.7 % (36.0-47.0); HEMOGLOBIN 12.7 g/dl (12.0-15.5); LYMPH # 2.1 10^3/uL (1.5-5.0); MEAN CORPUSCULAR HEMOGLOBIN 25.2 pg (27.0-33.0); MEAN CORPUSCULAR HGB CONC 30.5 g/dl (32.0-36.5); MEAN CORPUSCULAR VOLUME 82.9 fl (80.0-96.0); MONO # 0.6 10^3/uL (0.0-0.8); MONO % 7.4 % (2.0-8.0); NEUTROPHILS % 64.7 % (36.0-66.0); PLATELET COUNT, AUTOMATED 288 10^3/uL (150-450); RED BLOOD COUNT 5.03 10^6/uL (4.00-5.40); WHITE BLOOD COUNT 7.7 10^3/uL (4.0-10.0)
[2022-01-08 12:08] LABS: ALT/SGPT 24 U/L (12-78); BLOOD UREA NITROGEN 10 MG/DL (7-18); CALCIUM LEVEL 9.1 MG/DL (8.5-10.1); CARBON DIOXIDE LEVEL 28 MEQ/L (21-32); CHLORIDE LEVEL 106 MEQ/L (98-107); CREATININE FOR GFR 0.78 MG/DL (0.55-1.30); GLOMERULAR FILTRATION RATE > 60.0 (>60); GLUCOSE, FASTING 95 MG/DL (70-100); POTASSIUM SERUM 4.1 MEQ/L (3.5-5.1); SODIUM LEVEL 138 MEQ/L (136-145)
[2022-01-08 12:09] LABS: ALBUMIN 3.9 GM/DL (3.2-5.2); BILIRUBIN,TOTAL 0.7 MG/DL (0.2-1.0); TOTAL PROTEIN 7.4 GM/DL (6.4-8.2)
== END ==
LOC: M RAD 10:41
PROVIDERS: ATTEND Nurse Practitioner Adult Health
DX: D18.09 Hemangioma of other sites (principal)

== ENCOUNTER → 2022-01-16 | Outpatient (REF) | payer BC ==
[~2022-01-16] MED LIST changes: -GASTROGRAFIN SOLUTION 30ML (Q9963) As Ordered ONE; -ISOVUE-370 76% 100ML VIAL As Ordered ONE
== END ==
LOC: M SFHCWAGY 17:06
PROVIDERS: ATTEND Obstetrics & Gynecology
DX: N93.9 Abnormal uterine and vaginal bleeding, unspecified (principal)

== ENCOUNTER → 2022-02-06 | Outpatient (CLI) | payer BC ==
[~2022-02-06] MED LIST changes: +AMPH1TAB2 PO; +GABA-282 PO; +VITMTA PO
== END ==
LOC: M LABSMTC 09:44
PROVIDERS: ATTEND Anesthesiology
DX: Z01.818 Encounter for other preprocedural examination (principal); Z11.52 Encounter for screening for COVID-19

== ENCOUNTER 2022-02-11 06:03 | Day surgery (SDC) | payer BC ==
[2022-02-11] VITALS (7 sets, daily range): BP systolic 81–117; BP diastolic 42–64
[~2022-02-11] VITALS: Ht 167.6 cm; Wt 95.3 kg
[2022-02-11] MEDS ORDERED: ceFAZolin SOD 2 GM in IV 1 EA IV ONE (06:10)
[2022-02-11] MEDS ORDERED: LR 1,000 ML IV SCH ×4 (06:10→09:45)
[2022-02-11 06:44] LABS: MEAN CORPUSCULAR HEMOGLOBIN 25.6 pg (27.0-33.0); MEAN CORPUSCULAR HGB CONC 31.6 g/dl (32.0-36.5); MEAN CORPUSCULAR VOLUME 81.2 fl (80.0-96.0); PLATELET COUNT, AUTOMATED 283 10^3/uL (150-450); RED BLOOD COUNT 4.68 10^6/uL (4.00-5.40); WHITE BLOOD COUNT 8.7 10^3/uL (4.0-10.0)
[2022-02-11] MEDS ORDERED: BUPIVACAINE HCL 0.25% 30ML VIAL As Ordered ONE ×2 (07:12→08:40)
[2022-02-11] MEDS ORDERED: propofoL 200 MG/20 ML VIAL As Ordered ONE (07:18)
[2022-02-11] MEDS ORDERED: LIDOCAINE 2% 100MG/5ML SDV (FOR ANES.) As Ordered ONE (07:18)
[2022-02-11] MEDS ORDERED: ROCURONIUM BROMIDE 50 MG/5 ML VIAL As Ordered ONE (07:18)
[2022-02-11] MEDS ORDERED: MIDAZOLAM INJ 2MG/2ML VIAL (J2250 PER 1MG) As Ordered ONE (07:19)
[2022-02-11] MEDS ORDERED: fentaNYL 250 MCG/5 ML INJECTION As Ordered ONE (07:19)
[2022-02-11 07:40] LABS: HCG, SERUM QUALITATIVE NEGATIVE (NEGATIVE)
[2022-02-11] MEDS ORDERED: LACRILUBE (AKWA TEARS) OPHTH OINT 3.5 GM As Ordered ONE (08:00)
[2022-02-11] MEDS ORDERED: ePHEDrine SULFATE 25 MG/5 ML(5MG/ML) SYRINGE As Ordered ONE (08:08)
[2022-02-11] MEDS ORDERED: PHENYLephrine 500MCG 5ML (100MCG/ML) SYRINGE As Ordered ONE (08:08)
[2022-02-11] MEDS ORDERED: dexameTHASONE 4 MG/ML 1ML VIAL (J1100 PER 1MG) As Ordered ONE ×2 (08:22→08:41)
[2022-02-11] MEDS ORDERED: KETOROLAC 60MG 2ML VIAL As Ordered ONE (08:22)
[2022-02-11] MEDS ORDERED: ACETAMINOPHEN 1000MG 100ML IV BTL (OFIRMEV) (J0131 PER 10MG) As Ordered ONE (08:22)
[2022-02-11] MEDS ORDERED: ONDANSETRON 4MG 2ML VIAL As Ordered ONE (08:22)
[2022-02-11] MEDS ORDERED: METOCLOPRAMIDE INJ 10MG/2ML VIAL (J2765 PER 1) As Ordered ONE (08:24)
[2022-02-11] MEDS ORDERED: SUGAMMADEX SODIUM 500 MG/5 ML VIAL (BRIDION) As Ordered ONE (08:26)
[2022-02-11] MEDS ORDERED: EPINEPHrine INJ 1 MG/ML 1ML AMP As Ordered ONE (08:41)
[2022-02-11] MEDS ORDERED: METHYLENE BLUE 0.5% (5MG/ML) 10 ML AMP (PROVAYBLUE) As Ordered ONE (08:45)
[2022-02-11] MEDS ORDERED: METOCLOPRAMIDE INJ 10MG/2ML VIAL (J2765 PER 1) IV PRN (09:30)
[2022-02-11] MEDS ORDERED: oxyCODONE 5MG TAB PO PRN (09:30)
[2022-02-11] MEDS ORDERED: ONDANSETRON 4MG 2ML VIAL IV PRN ×2 (09:30→09:45)
[2022-02-11] MEDS ORDERED: PROMETHAZINE 25MG/ML 1ML VIAL IV PRN (09:45)
[2022-02-11] MEDS ORDERED: IBUP80TA PO (09:51)
[2022-02-11] MEDS ORDERED: ONDA4TAB6 PO (09:52)
[2022-02-11] MEDS ORDERED: COLA100C5 PO (09:53)
[2022-02-11] MEDS: fentaNYL 100 MCG/2 ML INJECTION IV PRN ×2 (10:37→10:48)
[2022-02-11] MEDS: traMADol 50 MG TAB PO PRN (13:04)
[2022-02-11] MEDS: GABAPENTIN 100 MG CAP PO SCH ×2 (13:49→21:00)
[2022-02-11] MEDS: KETOROLAC 30 MG/ML 1ML VIAL IV SCH ×2 (16:13→21:28)
[2022-02-11] MEDS: DOCUSATE SODIUM 100MG CAPSULE PO SCH (21:29)
[2022-02-12] MEDS: traMADol 50 MG TAB PO PRN ×2 (01:19→13:09)
[2022-02-12 01:45] VITALS: BP 121/67
[2022-02-12] MEDS: KETOROLAC 30 MG/ML 1ML VIAL IV SCH (03:24)
[2022-02-12 06:00] VITALS: BP 102/58
[2022-02-12] MEDS: DOCUSATE SODIUM 100MG CAPSULE PO SCH (09:15)
[2022-02-12] MEDS: GABAPENTIN 100 MG CAP PO SCH (09:15)
[2022-02-12 10:00] VITALS: BP 11/56
[2022-02-12] MEDS ORDERED: IBUPROFEN 800 MG TAB PO SCH (11:00)
== END 2022-02-12 13:20 | disposition home or self-care (01) ==
LOC: M SDC 06:03 → M OBS 11:25 → M SDC 11:39 → UNDOADMIN 12:03 → M OBS 12:03 → UNDODISIN 02-12 13:20 → M SDC 02-12 13:20
PROVIDERS: ATTEND Obstetrics & Gynecology
DX: N93.9 Abnormal uterine and vaginal bleeding, unspecified (principal); R10.2 Pelvic and perineal pain; G89.29 Other chronic pain; Z79.899 Other long term (current) drug therapy; Z79.891 Long term (current) use of opiate analgesic; Z91.048 Other nonmedicinal substance allergy status; Z88.5 Allergy status to narcotic agent
CPT/HCPCS: 11982; 36415; 58571; 84703; 85027; 86850; 86900; 86901; 88307; 96374; 96376; J0131; J0171; J0690; J1100; J1885; J2250; J2370; J2405; J2765; J3010; Q9968; S2900

== ENCOUNTER 2022-02-26 01:57 | Emergency (ER) | payer BC ==
[~2022-02-26] VITALS: Ht 167.6 cm; Wt 97.2 kg
[~2022-02-26 01:57] MED LIST changes: +COLA100C5 PO; +IBUP80TA PO; +ONDA4TAB6 PO
[2022-02-26] MEDS ORDERED: NS 1,000 ML IV ONE (08:00)
[2022-02-26] MEDS ORDERED: traMADol 50 MG TAB PO ONE (08:15)
[2022-02-26 08:27] LABS: BASO % 0.3 % (0.0-1.0); HEMATOCRIT 39.7 % (36.0-47.0); HEMOGLOBIN 12.2 g/dl (12.0-15.5); LYMPH # 1.3 10^3/uL (1.5-5.0); LYMPH % 15.1 % (24.0-44.0); MEAN CORPUSCULAR HEMOGLOBIN 24.9 pg (27.0-33.0); MEAN CORPUSCULAR HGB CONC 30.7 g/dl (32.0-36.5); MEAN CORPUSCULAR VOLUME 81.2 fl (80.0-96.0); MONO # 0.5 10^3/uL (0.0-0.8); MONO % 5.9 % (2.0-8.0); NEUTROPHILS # 6.9 10^3/uL (1.5-8.5); NEUTROPHILS % 78.4 % (36.0-66.0); PLATELET COUNT, AUTOMATED 292 10^3/uL (150-450); RED BLOOD COUNT 4.89 10^6/uL (4.00-5.40); WHITE BLOOD COUNT 8.9 10^3/uL (4.0-10.0)
[2022-02-26 08:39] LABS: ALBUMIN 3.7 GM/DL (3.2-5.2); ALT/SGPT 33 U/L (12-78); BILIRUBIN,DIRECT 0.1 MG/DL (0.0-0.2); BILIRUBIN,TOTAL 0.4 MG/DL (0.2-1.0); BLOOD UREA NITROGEN 13 MG/DL (7-18); CALCIUM LEVEL 8.9 MG/DL (8.5-10.1); CARBON DIOXIDE LEVEL 25 MEQ/L (21-32); CHLORIDE LEVEL 105 MEQ/L (98-107); CREATININE FOR GFR 0.79 MG/DL (0.55-1.30); GLOMERULAR FILTRATION RATE > 60.0 (>60); GLUCOSE, FASTING 97 MG/DL (70-100); LIPASE 80 U/L (73-393); POTASSIUM SERUM 4.5 MEQ/L (3.5-5.1); SODIUM LEVEL 138 MEQ/L (136-145); TOTAL PROTEIN 7.3 GM/DL (6.4-8.2)
[2022-02-26] MEDS ORDERED: ISOVUE-370 76% 100ML VIAL As Ordered ONE (09:03)
[2022-02-26 09:24] LABS: RSV AMPLIFICATION NEGATIVE (NEGATIVE)
[2022-02-26 11:01] VITALS: BP 105/65
== END 2022-02-26 11:10 | disposition home or self-care (01) ==
LOC: M ED 01:57
DX: B08.4 Enteroviral vesicular stomatitis with exanthem (principal); N93.9 Abnormal uterine and vaginal bleeding, unspecified; R10.9 Unspecified abdominal pain; G47.30 Sleep apnea, unspecified; Z88.5 Allergy status to narcotic agent; Z88.8 Allergy status to other drugs, medicaments and biological substances; Z91.048 Other nonmedicinal substance allergy status; Z79.899 Other long term (current) drug therapy

== ENCOUNTER → 2022-03-13 | Outpatient (CLI) | payer BC ==
[~2022-03-13] MED LIST changes: +PROHANCE 279.3MG/ML 15ML VIAL As Ordered ONE; +PROHANCE 279.3MG/ML 5ML VIAL As Ordered ONE
== END ==
LOC: M RAD 13:17
PROVIDERS: ATTEND Nurse Practitioner Adult Health
DX: D49.0 Neoplasm of unspecified behavior of digestive system (principal); K86.2 Cyst of pancreas
CPT/HCPCS: 74183; A9576

== ENCOUNTER → 2022-04-04 | Outpatient (CLI) | payer BC ==
[~2022-04-04] MED LIST changes: -PROHANCE 279.3MG/ML 15ML VIAL As Ordered ONE; -PROHANCE 279.3MG/ML 5ML VIAL As Ordered ONE
[2022-04-04 16:53] LABS: CA19-9 TUMOR MARKER,CARBOHYDRA < 1.2 U/ML (<35.0)
== END ==
LOC: M LAB 15:12
PROVIDERS: ATTEND Internal Medicine Gastroenterology
DX: K86.2 Cyst of pancreas (principal)

== ENCOUNTER → 2022-04-24 | Outpatient (REF) | payer BC | LOC: M LAB REF 17:21 | PROVIDERS: ATTEND Physician Assistant | DX: N39.0 Urinary tract infection, site not specified (principal) ==

== ENCOUNTER → 2022-05-20 | Outpatient (CLI) | payer BC | LOC: M WHC 10:02 | PROVIDERS: ATTEND Surgery | DX: Z91.89 Other specified personal risk factors, not elsewhere classified (principal); Z80.3 Family history of malignant neoplasm of breast ==

== ENCOUNTER → 2022-09-06 | Outpatient (REF) | LOC: M EMP 09:17 | PROVIDERS: ATTEND Family Medicine | DX: Z11.52 Encounter for screening for COVID-19 (principal) ==

== ENCOUNTER → 2022-09-09 | Outpatient (CLI) | payer BC | LOC: M WHC 15:00 | PROVIDERS: ATTEND Family Medicine | DX: N64.4 Mastodynia (principal) ==

== ENCOUNTER → 2022-09-15 | Outpatient (CLI) | payer BC ==
[2022-09-15 11:35] LABS: BASO # 0.1 10^3/uL (0.0-0.2); BASO % 0.5 % (0.0-1.0); HEMATOCRIT 39.4 % (36.0-47.0); HEMOGLOBIN 12.4 g/dl (12.0-15.5); LYMPH # 2.5 10^3/uL (1.5-5.0); LYMPH % 25.5 % (24.0-44.0); MEAN CORPUSCULAR HEMOGLOBIN 25.7 pg (27.0-33.0); MEAN CORPUSCULAR HGB CONC 31.5 g/dl (32.0-36.5); MEAN CORPUSCULAR VOLUME 81.6 fl (80.0-96.0); MONO # 0.6 10^3/uL (0.0-0.8); MONO % 5.8 % (2.0-8.0); NEUTROPHILS # 6.6 10^3/uL (1.5-8.5); NEUTROPHILS % 67.8 % (36.0-66.0); PLATELET COUNT, AUTOMATED 326 10^3/uL (150-450); RED BLOOD COUNT 4.83 10^6/uL (4.00-5.40); WHITE BLOOD COUNT 9.8 10^3/uL (4.0-10.0)
[2022-09-15 11:59] LABS: ALBUMIN 3.6 G/DL (3.2-5.2); ALKALINE PHOSPHATASE 96 U/L (46-116); ALT/SGPT 22 U/L (7.0-40); AST/SGOT 17 U/L (<34); BILIRUBIN,TOTAL 0.4 MG/DL (0.3-1.2); BLOOD UREA NITROGEN 11 MG/DL (9-23); CALCIUM LEVEL 8.9 MG/DL (8.5-10.1); CARBON DIOXIDE LEVEL 27 MMOL/L (20-31); CHLORIDE LEVEL 107 MMOL/L (98-107); CHOLESTEROL LEVEL 165 MG/DL (<200); CHOLESTEROL RISK RATIO 3.81 (<5); CREATININE FOR GFR 0.66 MG/DL (0.55-1.30); GLOMERULAR FILTRATION RATE > 60.0 (>60); GLUCOSE, FASTING 100 MG/DL (60-100); HDL CHOLESTEROL 43.3 MG/DL (>40); LDL CHOLESTEROL 91.7 MG/DL (<100); NON-HDL-C 121.7 MG/DL; POTASSIUM SERUM 4.3 MMOL/L (3.5-5.1); SODIUM LEVEL 140 MMOL/L (136-145); TOTAL PROTEIN 6.3 G/DL (5.7-8.2); TRIGLYCERIDES LEVEL 150 MG/DL (<150)
[2022-09-15 12:00] LABS: PROLACTIN 5.53 NG/ML; THYROID STIMULATING HORMONE 0.888 uIU/ML (0.55-4.78); TOTAL 25(OH) VITAMIN D 9.9 NG/ML (20.0-100.0)
[2022-09-15 12:01] LABS: FREE T4 0.99 NG/DL (0.89-1.76)
[2022-09-15 13:04] LABS: HEMOGLOBIN A1c 5.6 % (4.0-6.0)
== END ==
LOC: M LAB 11:11
PROVIDERS: ATTEND Physician Assistant
DX: D48.62 Neoplasm of uncertain behavior of left breast (principal)

== ENCOUNTER → 2022-10-10 | Outpatient (CLI) | payer BC ==
[~2022-10-10] MED LIST changes: +PROHANCE 279.3MG/ML 15ML VIAL As Ordered ONE; +PROHANCE 279.3MG/ML 5ML VIAL As Ordered ONE
== END ==
LOC: M RAD 13:22
PROVIDERS: ATTEND Nurse Practitioner Women's Health
DX: N64.52 Nipple discharge (principal); Z91.89 Other specified personal risk factors, not elsewhere classified; Z64.4 Discord with counselors
CPT/HCPCS: A9576; C8908

== ENCOUNTER → 2023-05-20 | Outpatient (CLI) | payer BC ==
[~2023-05-20] MED LIST changes: -GABA-283 PO; +GABA-284 PO; -PROHANCE 279.3MG/ML 15ML VIAL As Ordered ONE; -PROHANCE 279.3MG/ML 5ML VIAL As Ordered ONE
== END ==
LOC: M RAD 17:28
PROVIDERS: ATTEND Physician Assistant
DX: M46.1 Sacroiliitis, not elsewhere classified (principal)

== ENCOUNTER → 2023-05-27 | Outpatient (CLI) | payer BC | LOC: M WHC 14:05 | PROVIDERS: ATTEND Nurse Practitioner Women's Health | DX: Z91.89 Other specified personal risk factors, not elsewhere classified (principal); Z80.3 Family history of malignant neoplasm of breast ==

== ENCOUNTER → 2023-08-20 | Outpatient (CLI) | payer BC | LOC: M RAD 12:52 | PROVIDERS: ATTEND Orthopaedic Surgery | DX: M54.50 Low back pain, unspecified (principal) ==

== ENCOUNTER 2023-08-22 18:08 | Emergency (ER) | payer BC ==
[~2023-08-22] VITALS: Ht 167.6 cm; Wt 104.5 kg
[2023-08-22 19:26] LABS: BASO # 0.1 10^3/uL (0.0-0.2); BASO % 0.4 % (0.0-1.0); HEMATOCRIT 38.1 % (36.0-47.0); HEMOGLOBIN 12.3 g/dl (12.0-15.5); LYMPH # 2.8 10^3/uL (1.5-5.0); LYMPH % 24.4 % (24.0-44.0); MEAN CORPUSCULAR HEMOGLOBIN 27.1 pg (27.0-33.0); MEAN CORPUSCULAR HGB CONC 32.3 g/dl (32.0-36.5); MEAN CORPUSCULAR VOLUME 83.9 fl (80.0-96.0); MONO # 0.9 10^3/uL (0.0-0.8); MONO % 7.7 % (2.0-8.0); NEUTROPHILS # 7.7 10^3/uL (1.5-8.5); NEUTROPHILS % 67.3 % (36.0-66.0); PLATELET COUNT, AUTOMATED 284 10^3/uL (150-450); RED BLOOD COUNT 4.54 10^6/uL (4.00-5.40); WHITE BLOOD COUNT 11.4 10^3/uL (4.0-10.0)
[2023-08-22] MEDS: NS 500 ML IV ONE (19:27)
[2023-08-22] MEDS: ONDANSETRON 4MG 2ML VIAL IV ONE (19:27)
[2023-08-22] MEDS: fentaNYL 100 MCG/2 ML INJECTION IV ONE (19:28)
[2023-08-22 19:34] LABS: ERYTHROCYTE SEDIMENTATION RATE 33 mm/hr (0-20)
[2023-08-22] MEDS ORDERED: ISOVUE-370 76% 100ML VIAL As Ordered ONE (19:59)
[2023-08-22 20:10] LABS: BLOOD UREA NITROGEN 16 MG/DL (9-23); CALCIUM LEVEL 8.9 MG/DL (8.5-10.1); CARBON DIOXIDE LEVEL 28 MMOL/L (20-31); CHLORIDE LEVEL 103 MMOL/L (98-107); CREATININE FOR GFR 0.69 MG/DL (0.55-1.30); GLOMERULAR FILTRATION RATE > 60.0 (>60); GLUCOSE, FASTING 97 MG/DL (60-100); POTASSIUM SERUM 4.2 MMOL/L (3.5-5.1); SODIUM LEVEL 139 MMOL/L (136-145)
[2023-08-22] MEDS: CEFEPIME HCL 2 GM in D5W MINI-BAG PLUS 50 ML IV ONE (21:13)
[2023-08-22] MEDS ORDERED: CEPH500C PO (21:14)
[2023-08-22] MEDS ORDERED: BACT800T5 PO (21:14)
[2023-08-22] MEDS ORDERED: ONDA4TAB6 PO (21:14)
[2023-08-22 22:16] VITALS: BP 109/58; TEMP 97.5; O2SAT 99
== END 2023-08-22 22:17 | disposition home or self-care (01) ==
LOC: M ED 18:08
DX: K61.0 Anal abscess (principal); D64.9 Anemia, unspecified; F41.9 Anxiety disorder, unspecified; K58.9 Irritable bowel syndrome, unspecified; Z88.8 Allergy status to other drugs, medicaments and biological substances; Z91.048 Other nonmedicinal substance allergy status; Z79.1 Long term (current) use of non-steroidal anti-inflammatories (NSAID); Z79.810 Long term (current) use of selective estrogen receptor modulators (SERMs); Z79.899 Other long term (current) drug therapy
CPT/HCPCS: 72193; 80047; 80048; 84702; 85025; 85652; 86140; 96361; 96365; 96374; 96375; 99284; J0692; J2405; J3010; Q9967

== ENCOUNTER → 2023-10-15 | Outpatient (CLI) | payer BC ==
[~2023-10-15] MED LIST changes: +CEPH500C PO; +ONDA-282 PO; -ONDA4TAB6 PO
== END ==
LOC: M RAD 10:19
PROVIDERS: ATTEND Obstetrics & Gynecology
DX: R19.00 Intra-abdominal and pelvic swelling, mass and lump, unspecified site (principal)

== ENCOUNTER → 2023-11-06 | Outpatient (CLI) | payer BC ==
[~2023-11-06] MED LIST changes: +PROHANCE 279.3MG/ML 15ML VIAL As Ordered ONE; +PROHANCE 279.3MG/ML 5ML VIAL As Ordered ONE
== END ==
LOC: M RAD 10:39
PROVIDERS: ATTEND Physician Assistant
DX: K86.2 Cyst of pancreas (principal); K76.89 Other specified diseases of liver; R19.4 Change in bowel habit; K76.0 Fatty (change of) liver, not elsewhere classified
CPT/HCPCS: 74183; A9576

== ENCOUNTER → 2023-11-06 | Outpatient (CLI) | payer BC ==
[~2023-11-06] MED LIST changes: -PROHANCE 279.3MG/ML 15ML VIAL As Ordered ONE; -PROHANCE 279.3MG/ML 5ML VIAL As Ordered ONE
[2023-11-06 11:44] LABS: ALBUMIN 3.9 G/DL (3.2-5.2); BILIRUBIN,DIRECT 0.1 MG/DL (<0.4); BILIRUBIN,TOTAL 0.3 MG/DL (0.3-1.2); TOTAL PROTEIN 6.9 G/DL (5.7-8.2)
== END ==
LOC: M LAB 10:35
PROVIDERS: ATTEND Physician Assistant
DX: K86.2 Cyst of pancreas (principal); K76.89 Other specified diseases of liver

== ENCOUNTER → 2023-12-02 | Outpatient (CLI) | payer BC ==
[2023-12-02 14:52] LABS: CARCINOEMBRYONIC ANTIGEN < 2.0 NG/ML (<2.5)
[2023-12-02 14:53] LABS: FOLLICLE STIMULATING HORMONE 5.3 mIU/ML; LUTEINIZING HORMONE 4.5 mIU/ML
[2023-12-02 14:54] LABS: ESTRADIOL 50.1 PG/ML
[2023-12-02 15:07] LABS: CA19-9 TUMOR MARKER,CARBOHYDRA < 1.2 U/ML (<35.0)
== END ==
LOC: M PLALAB 10:46
PROVIDERS: ATTEND Obstetrics & Gynecology
DX: R19.00 Intra-abdominal and pelvic swelling, mass and lump, unspecified site (principal)

== ENCOUNTER → 2023-12-05 | Outpatient (CLI) | payer BC ==
[~2023-12-05] MED LIST changes: +PROHANCE 279.3MG/ML 15ML VIAL As Ordered ONE; +PROHANCE 279.3MG/ML 5ML VIAL As Ordered ONE
== END ==
LOC: M RAD 06:23
PROVIDERS: ATTEND Nurse Practitioner Women's Health
DX: Z91.89 Other specified personal risk factors, not elsewhere classified (principal); Z80.3 Family history of malignant neoplasm of breast; R92.313 Mammographic fatty tissue density, bilateral breasts
CPT/HCPCS: A9576; C8908

== ENCOUNTER → 2024-03-04 | Outpatient (CLI) | payer BC ==
[~2024-03-04] MED LIST changes: +GABA-1172 PO; -GABA-282 PO; -PROHANCE 279.3MG/ML 15ML VIAL As Ordered ONE; -PROHANCE 279.3MG/ML 5ML VIAL As Ordered ONE
[2024-03-04 18:38] LABS: BASO # 0.1 10^3/uL (0.0-0.2); BASO % 0.4 % (0.0-1.0); EOS % 0.1 % (0.0-3.0); HEMATOCRIT 39.8 % (36.0-47.0); HEMOGLOBIN 12.7 g/dl (12.0-15.5); LYMPH # 2.8 10^3/uL (1.5-5.0); LYMPH % 21.4 % (24.0-44.0); MEAN CORPUSCULAR HEMOGLOBIN 27.5 pg (27.0-33.0); MEAN CORPUSCULAR HGB CONC 31.9 g/dl (32.0-36.5); MEAN CORPUSCULAR VOLUME 86.3 fl (80.0-96.0); MONO # 0.6 10^3/uL (0.0-0.8); MONO % 4.5 % (2.0-8.0); NEUTROPHILS # 9.5 10^3/uL (1.5-8.5); NEUTROPHILS % 73.2 % (36.0-66.0); PLATELET COUNT, AUTOMATED 297 10^3/uL (150-450); RED BLOOD COUNT 4.61 10^6/uL (4.00-5.40)
[2024-03-04 18:45] LABS: ERYTHROCYTE SEDIMENTATION RATE 21 mm/hr (0-20)
[2024-03-04 19:03] LABS: ALBUMIN 3.9 G/DL (3.2-5.2); ALKALINE PHOSPHATASE 89 U/L (35-104); ALT/SGPT 44 U/L (7.0-40); AST/SGOT 23 U/L (<34); BILIRUBIN,TOTAL 0.5 MG/DL (0.3-1.2); BLOOD UREA NITROGEN 13 MG/DL (9-23); CALCIUM LEVEL 9.1 MG/DL (8.5-10.1); CARBON DIOXIDE LEVEL 28 MMOL/L (20-31); CHLORIDE LEVEL 105 MMOL/L (98-107); CREATININE FOR GFR 0.68 MG/DL (0.55-1.30); GLOMERULAR FILTRATION RATE > 60.0 (>60); GLUCOSE, FASTING 105 MG/DL (60-100); MAGNESIUM LEVEL 1.9 MG/DL (1.8-2.4); POTASSIUM SERUM 4.2 MMOL/L (3.5-5.1); RHEUMATOID FACTOR QUANT 5.2 IU/ML (<14); SODIUM LEVEL 139 MMOL/L (136-145); TOTAL PROTEIN 7.2 G/DL (5.7-8.2)
[2024-03-04 19:07] LABS: THYROID STIMULATING HORMONE 0.982 uIU/ML (0.55-4.78)
== END ==
LOC: M LAB 17:47
PROVIDERS: ATTEND Family Medicine
DX: M79.10 Myalgia, unspecified site (principal); R59.0 Localized enlarged lymph nodes

== ENCOUNTER → 2024-04-27 | Outpatient (REF) | payer BC ==
[~2024-04-27] MED LIST changes: +OMEP-611 PO; -OMEP20TA2 PO; +[UNRECOGNIZED DRUG - CODE] PO
== END ==
LOC: M SFHCWAGY 17:11
PROVIDERS: ATTEND Obstetrics & Gynecology
DX: K61.1 Rectal abscess (principal)

== ENCOUNTER 2024-04-28 14:12 | Day surgery (SDC) | payer BC ==
[~2024-04-28] VITALS: Ht 167.6 cm; Wt 97.5 kg
[2024-04-28] MEDS ORDERED: NS (Normal Saline) 0.9% 1,000 ML IV SCH (14:40)
[2024-04-28] MEDS ORDERED: ONDANSETRON 4MG 2ML VIAL As Ordered ONE (14:42)
[2024-04-28] MEDS ORDERED: KETOROLAC 60MG 2ML VIAL As Ordered ONE (14:42)
[2024-04-28] MEDS ORDERED: MIDAZOLAM INJ 2MG/2ML VIAL As Ordered ONE (14:42)
[2024-04-28] MEDS ORDERED: ROCURONIUM BROMIDE 50MG/5ML VIAL As Ordered ONE (14:43)
[2024-04-28] MEDS ORDERED: SUGAMMADEX SODIUM 500 MG/5 ML VIAL (BRIDION) As Ordered ONE (14:43)
[2024-04-28] MEDS ORDERED: propofoL 200 MG/20 ML VIAL As Ordered ONE (14:43)
[2024-04-28] MEDS ORDERED: LIDOCAINE 2% 100MG/5ML SDV (FOR ANES.) As Ordered ONE (14:43)
[2024-04-28 14:46] LABS: HEMATOCRIT 43.3 % (36.0-47.0); HEMOGLOBIN 13.8 g/dl (12.0-15.5); MEAN CORPUSCULAR HEMOGLOBIN 27.1 pg (27.0-33.0); MEAN CORPUSCULAR HGB CONC 31.9 g/dl (32.0-36.5); MEAN CORPUSCULAR VOLUME 85.1 fl (80.0-96.0); PLATELET COUNT, AUTOMATED 312 10^3/uL (150-450); RED BLOOD COUNT 5.09 10^6/uL (4.00-5.40); WHITE BLOOD COUNT 11.2 10^3/uL (4.0-10.0)
[2024-04-28] MEDS ORDERED: fentaNYL 100 MCG/2 ML INJECTION As Ordered ONE (15:03)
[2024-04-28] MEDS: SCOPOLAMINE 1MG TRANSDERMAL PATCH TOP ONE (15:22)
[2024-04-28] MEDS ORDERED: dexmedeTOMIDine (4MCG/ML)200MCG/50ML BTL (PRECEDEX) As Ordered ONE (15:38)
[2024-04-28] MEDS ORDERED: ACETAMINOPHEN 1000MG/100ML IV BAG As Ordered ONE (15:39)
[2024-04-28] MEDS: ceFAZolin SOD 2 GM in IV 1 EA IV ONE (16:11)
[2024-04-28] MEDS: METHYLENE BLUE 0.5% (5MG/ML) 10 ML AMP (PROVAYBLUE) As Ordered ONE (17:43)
[2024-04-28] MEDS ORDERED: MEPERIDINE 25 MG/ML 1ML VIAL IV PRN (17:45)
[2024-04-28] MEDS ORDERED: fentaNYL 100 MCG/2 ML INJECTION IV PRN (17:45)
[2024-04-28] MEDS: ONDANSETRON 4MG 2ML VIAL IV PRN (18:46)
[2024-04-28] MEDS: fentaNYL 100 MCG/2 ML INJECTION IV PRN (18:46)
[2024-04-28 19:10] VITALS: TEMP 97
[2024-04-28 20:30] VITALS: BP 91/53; O2SAT 97
== END 2024-04-28 20:35 | disposition home or self-care (01) ==
LOC: M SDC 14:12
PROVIDERS: ATTEND Obstetrics & Gynecology
DX: D27.0 Benign neoplasm of right ovary (principal); D27.1 Benign neoplasm of left ovary; N83.8 Other noninflammatory disorders of ovary, fallopian tube and broad ligament; N70.11 Chronic salpingitis; R10.2 Pelvic and perineal pain; N73.6 Female pelvic peritoneal adhesions (postinfective); Z88.5 Allergy status to narcotic agent; Z91.048 Other nonmedicinal substance allergy status; Z79.899 Other long term (current) drug therapy
CPT/HCPCS: 36415; 58661; 58662; 85027; 86850; 86900; 86901; 88305; J0131; J0665; J0690; J1100; J1885; J2250; J2405; J3010; S2900

== ENCOUNTER → 2024-05-18 | Outpatient (REF) | payer BC | LOC: M LAB REF 17:00 | PROVIDERS: ATTEND Family Medicine | DX: R30.0 Dysuria (principal) ==

== ENCOUNTER → 2024-05-20 | Outpatient (CLI) | payer BC ==
[~2024-05-20] MED LIST changes: +PROHANCE 279.3MG/ML 15ML VIAL As Ordered ONE; +PROHANCE 279.3MG/ML 5ML VIAL As Ordered ONE
== END ==
LOC: M RAD 06:11
PROVIDERS: ATTEND Internal Medicine Gastroenterology
DX: K86.2 Cyst of pancreas (principal); Z80.0 Family history of malignant neoplasm of digestive organs; K76.89 Other specified diseases of liver; D18.03 Hemangioma of intra-abdominal structures
CPT/HCPCS: 74183; A9576

== ENCOUNTER → 2024-06-22 | Outpatient (CLI) | payer BC ==
[~2024-06-22] MED LIST changes: +ISOVUE-370 76% 100ML VIAL As Ordered ONE; -PROHANCE 279.3MG/ML 15ML VIAL As Ordered ONE; -PROHANCE 279.3MG/ML 5ML VIAL As Ordered ONE
== END ==
LOC: M RAD 14:13
PROVIDERS: ATTEND Family Medicine
DX: R07.9 Chest pain, unspecified (principal)

== ENCOUNTER → 2024-06-22 | Outpatient (CLI) | payer BC ==
[~2024-06-22] MED LIST changes: -ISOVUE-370 76% 100ML VIAL As Ordered ONE
[2024-06-22 11:05] LABS: BASO % 0.4 % (0.0-1.0); HEMATOCRIT 42.8 % (36.0-47.0); HEMOGLOBIN 13.3 g/dl (12.0-15.5); LYMPH # 2.4 10^3/uL (1.5-5.0); MEAN CORPUSCULAR HGB CONC 31.1 g/dl (32.0-36.5); MONO # 0.5 10^3/uL (0.0-0.8); MONO % 5.6 % (2.0-8.0); NEUTROPHILS # 6.2 10^3/uL (1.5-8.5); NEUTROPHILS % 67.8 % (36.0-66.0); PLATELET COUNT, AUTOMATED 297 10^3/uL (150-450); RED BLOOD COUNT 4.92 10^6/uL (4.00-5.40); WHITE BLOOD COUNT 9.2 10^3/uL (4.0-10.0)
[2024-06-22 11:11] LABS: ERYTHROCYTE SEDIMENTATION RATE 25 mm/hr (0-20)
[2024-06-22 11:34] LABS: C REACTIVE PROTEIN QUANTITATIV 0.83 MG/DL (<1.0)
[2024-06-22 11:35] LABS: ALBUMIN 3.8 G/DL (3.2-5.2); ALKALINE PHOSPHATASE 87 U/L (35-104); ALT/SGPT 38 U/L (7.0-40); AST/SGOT 29 U/L (<34); BILIRUBIN,TOTAL 0.4 MG/DL (0.3-1.2); BLOOD UREA NITROGEN 11 MG/DL (9-23); CALCIUM LEVEL 9.2 MG/DL (8.5-10.1); CARBON DIOXIDE LEVEL 31 MMOL/L (20-31); CHLORIDE LEVEL 105 MMOL/L (98-107); CREATININE FOR GFR 0.72 MG/DL (0.55-1.30); GLOMERULAR FILTRATION RATE > 60.0 (>60); GLUCOSE, FASTING 98 MG/DL (60-100); MONO SCRN NEGATIVE (NEGATIVE); POTASSIUM SERUM 4.7 MMOL/L (3.5-5.1); RHEUMATOID FACTOR QUANT < 3.5 IU/ML (<14); SODIUM LEVEL 142 MMOL/L (136-145); TOTAL PROTEIN 7.1 G/DL (5.7-8.2)
[2024-06-23 15:24] LABS: ANA SCREEN, IFA NEGATIVE (NEGATIVE)
== END ==
LOC: M LAB 10:04
PROVIDERS: ATTEND Family Medicine
DX: R59.0 Localized enlarged lymph nodes (principal)

== ENCOUNTER → 2024-06-24 | Outpatient (CLI) | payer BC | LOC: M CARPUL 10:11 | PROVIDERS: ATTEND Family Medicine | DX: R07.9 Chest pain, unspecified (principal); M79.622 Pain in left upper arm; R60.0 Localized edema ==

== ENCOUNTER → 2024-07-19 | Outpatient (REF) | LOC: M EMP 15:41 | PROVIDERS: ATTEND Family Medicine | DX: Z11.52 Encounter for screening for COVID-19 (principal) ==

== ENCOUNTER → 2024-08-16 | Outpatient (CLI) | payer BC | LOC: M WHC 11:36 | PROVIDERS: ATTEND Obstetrics & Gynecology | DX: Z91.89 Other specified personal risk factors, not elsewhere classified (principal) ==

== ENCOUNTER 2025-01-02 18:52 | Emergency (ER) | payer BC ==
[~2025-01-02] VITALS: Ht 167.6 cm; Wt 100.4 kg
[2025-01-02 18:57] VITALS: TEMP 98.8
[2025-01-02] MEDS: ACETAMINOPHEN *IV* 1,000 MG in IV 1 EA IV ONE (22:23)
[2025-01-02] MEDS: KETOROLAC 30 MG/ML 1 ML VIAL IV ONE (22:23)
[2025-01-02 23:52] VITALS: O2SAT 98
[2025-01-03 00:01] VITALS: BP 90/53
== END 2025-01-03 00:21 | disposition home or self-care (01) ==
LOC: M ED 18:52
DX: S06.0X0A Concussion without loss of consciousness, initial encounter (principal); Y92.9 Unspecified place or not applicable; Y93.9 Activity, unspecified; Y99.9 Unspecified external cause status; W22.09XA Striking against other stationary object, initial encounter; R22.0 Localized swelling, mass and lump, head; K21.9 Gastro-esophageal reflux disease without esophagitis; E11.9 Type 2 diabetes mellitus without complications; Z88.5 Allergy status to narcotic agent; Z88.8 Allergy status to other drugs, medicaments and biological substances; Z91.048 Other nonmedicinal substance allergy status; Z79.1 Long term (current) use of non-steroidal anti-inflammatories (NSAID); Z79.899 Other long term (current) drug therapy
CPT/HCPCS: 70450; 70486; 72125; 96374; 96375; 99284; J0131; J1885; J3010

== ENCOUNTER → 2025-01-14 | Outpatient (CLI) | payer BC | LOC: M RAD 06:21 | PROVIDERS: ATTEND Obstetrics & Gynecology | DX: R10.2 Pelvic and perineal pain (principal); Z90.710 Acquired absence of both cervix and uterus ==

== ENCOUNTER → 2025-01-14 | Outpatient (CLI) | payer BC | LOC: M RAD 06:18 | PROVIDERS: ATTEND Family Medicine | DX: E04.1 Nontoxic single thyroid nodule (principal); R10.2 Pelvic and perineal pain; Z90.710 Acquired absence of both cervix and uterus ==

== ENCOUNTER → 2025-02-23 | Outpatient (CLI) | payer BC ==
[2025-02-23 10:50] LABS: BASO # 0.0 10^3/uL (0.0-0.2); BASO % 0.4 % (0.0-1.0); EOS # 0.0 10^3/uL (0.0-0.5); EOS % 0.0 % (0.0-3.0); LYMPH # 2.3 10^3/uL (1.5-5.0); LYMPH % 25.2 % (24.0-44.0); MONO # 0.6 10^3/uL (0.0-0.8); MONO % 6.6 % (2.0-8.0); NEUTROPHILS # 6.1 10^3/uL (1.5-8.5); NEUTROPHILS % 67.6 % (36.0-66.0); PLATELET COUNT, AUTOMATED 294 10^3/uL (150-450)
[2025-02-23 11:12] LABS: ALT/SGPT 35 U/L (7.0-40); AST/SGOT 25 U/L (<34); CALCIUM LEVEL 8.9 MG/DL (8.5-10.1); CARBON DIOXIDE LEVEL 29 MMOL/L (20-31); CHLORIDE LEVEL 103 MMOL/L (98-107); CHOLESTEROL LEVEL 197 MG/DL (<200); CHOLESTEROL RISK RATIO 3.91 (<5); CREATININE FOR GFR 0.72 MG/DL (0.55-1.30); GLOMERULAR FILTRATION RATE > 90.0 (>60); LDL CHOLESTEROL 110.9 MG/DL (<100); NON-HDL-C 146.7 MG/DL; POTASSIUM SERUM 4.4 MMOL/L (3.5-5.1); SODIUM LEVEL 139 MMOL/L (136-145); TRIGLYCERIDES LEVEL 179 MG/DL (<150)
[2025-02-23 11:13] LABS: FREE T4 1.18 NG/DL (0.89-1.76)
[2025-02-23 11:14] LABS: TOTAL 25(OH) VITAMIN D 20.8 NG/ML (20.0-100.0)
== END ==
LOC: M LAB 09:34
PROVIDERS: ATTEND Family Medicine
DX: E55.9 Vitamin D deficiency, unspecified (principal); Z13.29 Encounter for screening for other suspected endocrine disorder; Z13.0 Encounter for screening for diseases of the blood and blood-forming organs and certain disorders involving the immune mechanism; Z13.220 Encounter for screening for lipoid disorders

== ENCOUNTER → 2025-03-10 | Outpatient (CLI) | payer BC ==
[2025-03-10] MEDS: LIDOCAINE 1% MDV 20 ML VIAL SC SCH (14:40)
[2025-03-10 14:43] VITALS: BP 134/80; TEMP 98.5; O2SAT 100
== END ==
LOC: M IRPRO 14:31
PROVIDERS: ATTEND Physician Assistant Surgical
DX: E04.1 Nontoxic single thyroid nodule (principal)

== ENCOUNTER → 2025-03-23 | Outpatient (CLI) | payer BC ==
[~2025-03-23] MED LIST changes: +PROHANCE 279.3MG/ML 15ML VIAL As Ordered ONE; +PROHANCE 279.3MG/ML 5ML VIAL As Ordered ONE
== END ==
LOC: M RAD 06:29
PROVIDERS: ATTEND Nurse Practitioner
DX: Z91.89 Other specified personal risk factors, not elsewhere classified (principal); Z80.3 Family history of malignant neoplasm of breast
CPT/HCPCS: A9579; C8908